=== PATIENT | female | born 1955 | race Caucasian/White ===

== ENCOUNTER 2016-12-23 15:45 | Inpatient (IN) ==
[2016-12-23] MEDS ORDERED: NS 1,000 ML IV ONE ×2 (16:33→21:58)
[2016-12-23 16:48] LABS: ALLEN TEST YES; BLOOD TYPE ARTERIAL; DRAW SITE R RADIAL; METHB 1.3 % (0.0-1.5); O2(CT) 18.9 mL/dL (15.0-23.0); PCO2(98.6) 44 mmHg (35-45); PO2(98.6) 81 mmHg (60-100); SAMPLE BLOOD; SAO2 97.8 % (95.0-100.0); THB 14.1 g/dL (11.5-17.4)
[2016-12-23 16:49] LABS: MODALITY CANNULA
[2016-12-23 16:55] LABS: MANUAL DIFF NEEDED? NO
[2016-12-23 16:59] LABS: BASO% 0.7 % (0.0-0.8); EOS% 1.2 % (0.0-10.0); HEMATOCRIT 40.7 % (37.0-47.0); HEMOGLOBIN 13.8 g/dL (12.0-16.0); IMM GRAN# 0.05 X1000 (0.0-0.04); IMM GRAN% 0.6 % (0.0-0.5); LYMPH# 1.71 X1000 (1.2-3.4); LYMPH% 19.9 % (20.5-51.1); MCH 30.5 PG (27-31); MCHC 33.9 g/dL (33-37); MCV 89.8 FL (81-99); MONO# 0.61 X1000 (0.11-0.59); MONO% 7.1 % (1.7-9.3); MPV 9.7 FL (7.4-10.4); NEUT% 70.5 % (42.2-75.2); PLT 256 X1000 (130-400); RBC 4.53 XMIL (4.2-5.4)
[2016-12-23 17:07] LABS: INR 0.98; PROTIME 10.3 Seconds (9.2-11.7); PTT 27.3 Seconds (22.0-36.0)
--- NOTE | 2016-12-23 17:07 | Diag Imaging Result Doc PS360 ---
EXAM: HEAD W/O CONTRAST HISTORY: AMS TECHNIQUE: CT of the head without contrast COMMENT: There is no evidence of mass effect bleed or abnormal extra-axial fluid collection. Compared to 02/01/2015 there has been no significant change. The visualized paranasal sinuses are clear. The calvarium is intact. IMPRESSION: No evidence of acute intracranial disease. Electronically signed by Jimmie Robles 12/23/2016 5:04 PM
[2016-12-23 17:19] LABS: ACETAMINOPHEN < 1.2 ug/mL (10-30); AGAP 11; ALBUMIN 4.2 g/dL (3.5-5.0); ALKALINE PHOSPHATASE 66 U/L (32-104); BUN 17 mg/dL (8-22); CALCIUM 9.3 mg/dL (8.8-10.2); CHLORIDE 95 mmol/L (98-107); COSMO 268; GOT 37 U/L (10-30); GPT 31 U/L (10-36); POTASSIUM 4.5 mmol/L (3.5-5.1); SODIUM 133 mmol/L (136-145); TCO2 27 mmol/L (25-35); TOTAL BILIRUBIN 0.37 mg/dL (0.20-1.00); TOTAL PROTEIN 7.7 g/dL (6.3-8.3)
[2016-12-23 17:31] LABS: CK PROFILE 185 U/L (24-173)
[2016-12-23] MEDS ORDERED: VANCOMYCIN 1 GM/NS 1 GM/250 ML IVPB IV ONE (17:33)
[2016-12-23 17:35] LABS: URINE CULTURE NEEDED? NO; URINE MICRO REVIEW NEEDED? NO; URINE SOURCE CATH
--- NOTE | 2016-12-23 17:36 | Diag Imaging Result Doc PS360 ---
EXAM: WRIST COMPLETE LEFT HISTORY: Fall TECHNIQUE: Three views COMMENT: There are comminuted fractures of the distal radius and ulna. The distal radial fragments are considerably displaced posteriorly. The articular surface of the radius is apparently fragmented. IMPRESSION: Severely comminuted distal radius and ulnar fractures. Electronically signed by Jimmie Robles 12/23/2016 5:34 PM
--- NOTE | 2016-12-23 17:37 | Diag Imaging Result Doc PS360 ---
EXAM: CHEST-PORTABLE HISTORY: AMS TECHNIQUE: AP portable upright at 1705 COMMENT: There is cardiomegaly and increased pulmonary vascularity. Compared to 12/17/2016 there has been no significant change. IMPRESSION: Cardiomegaly. Stable chest. Electronically signed by Jimmie Robles 12/23/2016 5:35 PM
[2016-12-23 17:41] LABS: BILIRUBIN URINE NEGATIVE (NEGATIVE); BLOOD URINE NEGATIVE (NEGATIVE); COLOR YELLOW; GLUCOSE URINE NEGATIVE (NEGATIVE); LEUKOCYTES URINE NEGATIVE (NEGATIVE); NITRITE URINE NEGATIVE (NEGATIVE); PROTEIN URINE NEGATIVE (NEGATIVE); SP GRAVITY URINE 1.019; TURBIDITY URINE CLEAR (CLEAR); UROBILINOGEN URINE NORMAL (NORMAL)
[2016-12-23 17:43] LABS: UR EPITHELIAL CELLS <10 /HPF (<10); URINE BACTERIA NEGATIVE /HPF; URINE RBC <10 /HPF (<10); URINE WBC <10 /HPF (<10)
[2016-12-23 17:51] LABS: CK INDEX 3.8 (0.0-2.5); CK-MB 6.97 ng/mL (0.0-5.0)
[2016-12-23 17:51] LABS: UR AMPHETAMINES QUAL NONE DETECTED (NONE DETECT); UR BARBITUATES QUAL NONE DETECTED (NONE DETECT); UR BENZODIAZEPIN QUAL PRESUMPTIVE POSITIVE (NONE DETECT); UR CANNABINOIDS QUAL NONE DETECTED (NONE DETECT); UR COCAINE QUAL NONE DETECTED (NONE DETECT); UR METHADONE QUAL NONE DETECTED (NONE DETECT); UR OPIATES QUAL NONE DETECTED (NONE DETECT); UR OXYCODONE QUAL NONE DETECTED (NONE DETECT); UR PCP QUAL NONE DETECTED (NONE DETECT)
--- NOTE | 2016-12-23 18:08 | PROVIDER DOCUMENTATION ---
This chart was entered by Hiral Manley Scribe, acting as scribe for Lamar Warner MD. HPI-General Adult - General Chief Complaint: Extremity Injury Stated Complaint: AMS/open wrist fx Time Seen by Provider: 12/23/16 16:16 Source: patient, EMS ([facility]) Unable to obtain history due to:: altered Allergies/Adverse Reactions: Patient Allergies Allergy/AdvReac Type Severity Reaction Status Date / Time amoxicillin Allergy Severe ANAPHYLAXIS Verified 12/23/16 16:57 Penicillins Allergy Severe ANAPHYLAXIS Verified 12/23/16 16:57 cephalexin Allergy Unknown Verified 12/23/16 16:57 Home Medications: Home Medication List Medication Instructions Recorded Confirmed Last Taken Type Alprazolam 0.5 mg PO TID 02/01/15 12/23/16 12/17/16 08:00 History ATORVAstatin [Lipitor] 20 mg PO HS 09/05/16 12/23/16 12/16/16 History Losartan Potassium 100 mg PO DAILY 09/05/16 12/23/16 12/17/16 08:00 History Topiramate 25 mg PO BID 09/05/16 12/23/16 12/17/16 08:00 History Albuterol Sulfate [Proventil Hfa] 1 dose PO DAILY 12/23/16 12/23/16 Unknown History Beclomethasone Dipr 40 Mcg INH 1 dose PO BID 12/23/16 12/23/16 Unknown History [Qvar 40 Microgm] Cholecalciferol (Vitamin D3) 5,000 unit PO DAILY 12/23/16 12/23/16 Unknown History [Cholecalciferol] Clonidine [Catapres] 0.1 mg PO Q2-3H PRN PRN 12/23/16 12/23/16 Unknown History Folic Acid 1 mg PO DAILY 12/23/16 12/23/16 Unknown History Levetiracetam 1 tab PO BID 12/23/16 12/23/16 Unknown History Multivitamin,Therapeutic [Oncovite] 1 tab PO DAILY 12/23/16 12/23/16 Unknown History Nicotine Patch [Nicoderm Patch] 1 patch TD DAILY 12/23/16 12/23/16 12/23/16 08: 00 History Prednisone 10 mg PO DAILY 12/23/16 12/23/16 Unknown History Sertraline [Zoloft] 100 mg PO HS 12/23/16 12/23/16 Unknown History Thiamine [Vitamin B-1] 1 tab PO DAILY 12/23/16 12/23/16 Unknown History - History of Present Illness -Gen Adult Nature of Presenting Problems: 61 y/o F presents to ED per EMS. EMS reports pt was discharged from on Monday because of AMS. On exam pt seems to be AMS and unable to answer questions appropriate. When pt is asked a question she states "No" . Pt did say she fell in the bathroom. EMS reports pt saying she cut her wrist with a knife. L wrist has apparent swelling, deformity and bruising. L wrist has a good pulse. Wrist is bleeding due to poss open fx of the L wrist. Pt was asked if she wants to harm herself she stated "yes" . Pt was asked if she took extra Xanax and she stated "yes". Pt was also asked if she wanted any pain medication due to wrist she states"no". Pt has a blank stare but will look at you and is slow to respond.Pt appears to have no emotions on exam. Pt is alert and oriented to place. Location of Pain/Injury: reports: other (pt states she has "no" pain.) Pain Radiation: reports: no radiation Quality of Pain: reports: none Severity: reports: moderate Onset/Duration: reports: unsure Timing: reports: still present Context/Activities at Onset: reports: light activity Modifying Factors: improves with: nothing Associated Symptoms: reports: other (AMS/ POSS L WRIST OPEN FX). denies: chest pain, fever/chills, shortness of breath Similar Symptoms Previously?: Yes (SEEN AT ) Recently seen or treated by another doctor?: Yes (SEEN AT ) Review of Systems - Adult - REVIEW OF SYSTEMS - ADULT ROS:: limited per condition Constitutional: denies: chills, fever Cardiovascular: denies: chest pain, palpitations Respiratory: denies: cough, shortness of breath Gastrointestinal: denies: abdominal pain, diarrhea, nausea, vomiting Musculoskeletal: reports: other (POSS L WRIST OPEN FX). denies: back pain Past History - Adult - PAST MEDICAL HISTORY-ADULT Review of Records: reports: Old Records Reviewed, Nursing Assessment Review Major Childhood Illnesses: reports: denies history Cardiovascular: reports: HTN Respiratory: reports: COPD Gastrointestinal: reports: denies history Obstetrical/Gynecological: reports: denies history Genitourinary: reports: denies history Musculoskeletal: reports: denies history Neurological: reports: Seizures/Epilepsy Endocrine/Immune: reports: denies history Other Conditions: reports: denies history - PRIOR SURGERIES/PROCEDURES Surgical/Procedure History: reports: reviewed, not pertinent - IMMUNIZATION STATUS Childhood Immunizations: See Nurse Assessment Flu Vaccine: See Nurse Assessment - FAMILY HISTORY Family History: reviewed, not pertinent - SOCIAL HISTORY Smoking: less than 1 pack/day Provider spent 3-5 mins advising pt. on dangers of tobacco.: Discussed manners to quit use, and f/u contacts for add'l counseling. Substance Use: alcohol Alcohol Use Frequency: occasionally Physical Exam-General - PHYSICAL EXAM-ADULT Initial Vital Signs Reviewed: Yes - CONSTITUTIONAL General Appearance: obese, slow to respond (UNDER INFLUENCE) - EYES Eyes: pink conjunctivae - HEAD, EARS, NOSE, MOUTH & THROAT HENMT: moist mucous membranes, normal ENT inspection - NECK Neck: non-tender, full range of motion - RESPIRATORY Respiratory: chest non-tender, lungs clear, normal breath sounds - CARDIOVASCULAR Cardiovascular: normal peripheral pulses, regular rate, rhythm, no edema - GASTROINTESTINAL (ABDOMEN) Abdominal Exam: normal bowel sounds, non tender, soft - LYMPHATIC Lymphatic: no adenopathy - MUSCULOSKELETAL Back Exam: normal inspection, no CVA tenderness, no vertebral tenderness Extremity: normal range of motion, non-tender, other (POSS L WRIST OPEN FX. PT HAS BRUISING/DEFROMITY TO L WRIST. PT DOES HAVE GOOD PULSE IN L WRIST.) - SKIN Integumentary: normal color, normal turgor, blanching (to L wrist) - NEUROLOGIC Neurologic: other (pt is slow to respond- poss under influence). negative: facial droop, focal weakness, motor weakness - PSYCHIATRIC Psych/Mental Status: other (oriented to name and place) Progress - PLAN OF CARE/RESULTS Progress/Plan/Lab Results: Vital Signs - 8 hr 12/23/16 15:58 Temperature 97.6 F Pulse Rate 60 Respiratory Rate 21 Blood Pressure 173/83 O2 Sat by Pulse Oximetry 97 Orders Category Date Time Status Cardiac Monitoring DIRECTED Care 12/23/16 16:31 Active Finger Stick Blood Sugar (ED) DIRECTED Care 12/23/16 16:31 Active Saline Loc NOW Care 12/23/16 16:31 Active CHEST-PORTABLE [RAD] Stat Exams 12/23/16 16:31 Ordered HEAD W/O CONTRAST [CT] Stat Exams 12/23/16 16:31 Ordered WRIST COMPLETE LEFT [RAD] Stat Exams 12/23/16 16:31 Ordered ABG [RESP] Routine Lab 12/23/16 16:31 Ordered ALCOHOL BLOOD Stat Lab 12/23/16 16:31 Uncollected CBC WITH ELECTRONIC DIFF [HEME] Stat Lab 12/23/16 16:31 Uncollected CK PROFILE [SP CHEM] Stat Lab 12/23/16 16:31 Uncollected COMPREHENSIVE METABOLIC PANEL [CHEM] Stat Lab 12/23/16 16:31 Uncollected LACTATE, PLASMA [CHEM] Stat Lab 12/23/16 16:31 Uncollected PROTIME WITH INR [COAG] Stat Lab 12/23/16 16:31 Uncollected PTT [COAG] Stat Lab 12/23/16 16:31 Uncollected TROPONIN T Stat Lab 12/23/16 16:31 Uncollected URINALYSIS W/POSS RFLX CULT-1 [URINALYSIS] Stat Lab 12/23/16 16:31 Uncollected URINE DRUG SCREEN Stat Lab 12/23/16 16:31 Uncollected Pulse Oximetry Stat Oth 12/23/16 16:31 Active EKG [EKG] Stat Ther 12/23/16 16:31 Ordered PLAN: ALTERED MENTAL STATUS WORK UP , XRAY OF L WRIST, MONITOR PT, URINE Result Diagrams: 12/23/16 16:40 12/23/16 16:40 - XRAY 1 XRAY: Left XRAY Study: Wrist Impression: Abnormal XRAY Interpretation: displaced fx- Dr. Warner(er) 2 XRAY: Bilateral XRAY Study: Chest Impression: Normal (cardiomegaly. stable chest. - Dr. Robles(radiologists)) - CT/MRI 1 CT Study: Head Impression: Normal (no evdence of acute intracranial disease- Dr. Robles( radiologist)) CT Results: see impression - CONSULTS/PCP/HOSPITALIST Notification #1 *Consult/PCP/Hospitalist*: (ortho) Time Discussed: 17:42 Consult Disposition: other (Pt will be admitted to hospitalist and he will consult. Splint will be applied by ED staff) - CHANGE OF SHIFT REPORT (ED Provider) Report Given and Care Transferred to:: Time of Transfer: 18:00 Items Pending: Physician Consult/Arrival Departure - Departure Time of Disposition Decision: 17:45 DIAGNOSIS: Altered mental status, unspecified, Radial fracture, Overdose Disposition: ADMITTED INPATIENT 09 Certified Medical Emergency: Emergent Condition: Stable Referrals and Follow-Ups: None,PCP [Primary Care Provider] - - Critical Care Note This patient required my direct & personal management of CC.: No This chart was documented by the indicated scribe, (Hiral Manley Scribe) and accurately reflects the services I performed and decisions made by me, Lamar Warner MD, as attested by the provider's signature.
[2016-12-23 19:04] LABS: CK INDEX 3.7 (0.0-2.5); CK-MB 7.21 ng/mL (0.0-5.0)
[2016-12-23] MEDS ORDERED: TYLENOL PO PRN (21:58)
[2016-12-23] MEDS ORDERED: ZOFRAN IV PRN (21:58)
[2016-12-23] MEDS ORDERED: HALDOL IV PRN (22:13)
[2016-12-23] MEDS: KEPPRA PO SCH (22:32)
[2016-12-23] MEDS: TOPAMAX PO SCH (22:32)
[2016-12-23] MEDS: ZOLOFT PO SCH (22:32)
[2016-12-23] MEDS: NICODERM PATCH TD SCH (22:32)
[2016-12-23] MEDS: PROTONIX IV SCH (22:32)
[2016-12-23] MEDS: LIPITOR PO SCH (22:32)
[2016-12-23] MEDS: SODIUM CHLORIDE 0.9% INJ SCH (22:32)
--- NOTE | 2016-12-23 22:40 | HISTORY AND PHYSICAL ---
CHIEF COMPLAINT: fall HPI: This is 61 yo white female who came from home with altered mentation and injury to forearm. Reportedly there is per ER documentation suicide attempts but I talked to the nurse taking care of her this evening and that is not confirmed and the patient is really unable to give any information. Her sister I think found the patient. She had fallen after getting up off the commode. All she can state is "no" and that is basically what she has been able to say. She reportedly told her sister "knife" repeatedly. EMS reports patient saying she cut her wrist with a knife. She had swelling deformity and bruising and she has fracture of her of her wrist which is reportedly open and which has since been splinted. She was asked if she hurt herself. She denied this to me but she stated yes to other providers, reportedly also took extra Xanax. She was recently in [facility] discharged on Monday which was 2 days ago for a altered mental status similar kind of issue and had a neurological workup which was unremarkable. Her baseline is a flat affect, currently is a flat affect and she just repeats no so I cannot get much out of her. Difficult to say if she truly had suicide attempts but she is being admitted for her encephalopathy and then her open radial/ulnar fracture. PAST MEDICAL HISTORY: 1. hypertension. 2. Seizure disorder. 3. Possibly asthma, COPD. 4. Dyslipidemia. 5. Anxiety disorder. PAST SURGICAL HISTORY: I really cannot get much information from her. FAMILY HISTORY: Unobtainable. SOCIAL HISTORY: Is unobtainable. ALLERGIES: Amoxicillin, penicillin and Keflex. PER MEDICAL RECORDS PAST MEDICAL HISTORY: She has had a mitral valve prolapse , chronic venous stasis. SOCIAL HISTORY: She does have a smoking history, unclear what the duration of time is. MEDICATION LIST: She is on Proventil daily, Xanax 0.5 t.i.d., Lipitor 20 daily , beclomethasone b.i.d., vitamin D3 5000 units daily, Catapres 0.2 p.r.n., folic acid 1 daily, Keppra 500 b.i.d., Losartan 100 daily, multivitamin daily, NicoDerm daily, prednisone 10 daily, Zoloft 100 daily, thiamine 100 daily, topiramate 25 b.i.d. REVIEW OF SYSTEMS: Really unobtainable except as outlined in the HPI. PHYSICAL EXAMINATION: VITAL SIGNS: Blood pressure 187/86, heart rate is 68, respiratory 18, 97% room air saturations, temperature 97.6 degrees. GENERAL: Well-developed female, no acute distress. HEENT: Head normocephalic, atraumatic. Pupils were equal, round, reactive to light. Extraocular movements were intact. Ear/nose/throat. She had moist mucous membranes. NECK: Supple. CARDIOVASCULAR: Regular rate and rhythm. No murmurs, gallops, or rubs. PULMONARY: Bilateral breath sounds. Clear to auscultation. No wheezing. GI: Soft, nontender, nondistended. Bowel sounds are positive. EXTREMITIES: No clubbing or cyanosis. left forearm in splint LYMPHATICS: No peripheral edema. SKIN: She did have dark brown chronic venous changes in her lower extremities. Her left forearm was in a cast. NEUROLOGICAL: Nonfocal. She was not alert, oriented to anything. She just answered no pretty much to every question but she would track. She did not have a focal neurological exam. No facial asymmetry. No pronator drift although her left arm was weakened by her fracture. ASSESSMENT AND PLAN: A 61-year-old female with a waxing and waning encephalopathy not quite well characterized who presents confused, questionable suicidal ideation and open fracture of her left radius and ulna 1. Encephalopathy likely multifactorial. I cannot find a clear etiology. Her sodium is a little low but I do not feel like that is enough to hang her diagnosis on. I think this is likely a primary psychiatric issue. We will attempt to get a neurological consult although it is the weekend and MRI if she is not improved to rule out CVA. I am going to try to get her old records from [place]. We will get Felicity Gutierrez to evaluate her , consider that if she improves right now she is not stable with a fracture to go there in any case, we will pursue metabolic workup with thyroid function test, sedimentation rate, B12 , folate, RPR. 2. Open comminuted radial/ulnar fracture. This will be per Orthopedics. It is in a splint at this time. Will continue pain control and follow closely. 3. Chronic obstructive pulmonary disease. This appears to be compensated. Will continue her regular treatments and follow. 4. Mild hyponatremia. We will give normal saline. Check urine electrolytes and follow. 5. Hypertension. Continue regular medications and monitor. Will give clonidine p.r.n. DISPOSITION: Pending her workup and clinical course we will observe in the ICU because there is some question of suicidal ideation but at this point that has not been confirmed to confirmed by any provider in this facility it just been reported to EMT and not even confirmed by family per se so we will deal that will hopefully when her mentation improves. . cc: Manish Arias MD MTDD
[2016-12-24] MEDS ORDERED: ATIVAN IV PRN (02:51)
[2016-12-24 05:07] LABS: HEMATOCRIT 38.9 % (37.0-47.0); HEMOGLOBIN 13.3 g/dL (12.0-16.0); MCH 30.4 PG (27-31); MCHC 34.2 g/dL (33-37); MPV 10.1 FL (7.4-10.4); RBC 4.37 XMIL (4.2-5.4)
[2016-12-24 05:17] LABS: AGAP 13; ALBUMIN 3.8 g/dL (3.5-5.0); ALKALINE PHOSPHATASE 62 U/L (32-104); BUN 11 mg/dL (8-22); CALCIUM 8.3 mg/dL (8.8-10.2); CHLORIDE 97 mmol/L (98-107); COSMO 266; GOT 32 U/L (10-30); GPT 29 U/L (10-36); POTASSIUM 4.2 mmol/L (3.5-5.1); SODIUM 133 mmol/L (136-145); TCO2 23 mmol/L (25-35); TOTAL BILIRUBIN 0.65 mg/dL (0.20-1.00); TOTAL PROTEIN 6.2 g/dL (6.3-8.3)
[2016-12-24] MEDS: QVAR INH SCH ×2 (08:15→19:22)
[2016-12-24] MEDS: VITAMIN D PO SCH (08:16)
[2016-12-24] MEDS: OCUVITE LUTEIN & ZEAXANTHIN PO SCH (08:16)
[2016-12-24] MEDS: MORPHINE IV PRN ×2 (08:16→21:11)
[2016-12-24] MEDS: VENTOLIN HFA INH SCH (08:16)
[2016-12-24] MEDS: NICODERM PATCH TD SCH (08:16)
[2016-12-24] MEDS: COZAAR PO SCH (08:17)
[2016-12-24] MEDS: KEPPRA PO SCH ×2 (08:17→20:13)
[2016-12-24] MEDS: TOPAMAX PO SCH ×2 (08:17→20:13)
[2016-12-24] MEDS: XANAX PO SCH ×3 (08:17→20:13)
[2016-12-24] MEDS: VITAMIN B-1 PO SCH (08:17)
[2016-12-24] MEDS: FOLIC ACID PO SCH (08:17)
[2016-12-24] MEDS: NS 1,000 ML IV SCH (10:08)
--- NOTE | 2016-12-24 13:12 | PROGRESS NOTE ---
DATE: 12/24/2016 I understand Ms. Moffett got admitted yesterday because of altered mental status. From the H and P I go that Ms. Moffett was completely out, that it was only yes or no type of communication. The admitting physician could not get much from her. I also gather that the daughter brought her in because she was found at home with what seems to have been suspected fall with broken right forearm. Today she is a little bit more alert, slightly more communicative than what I gather from the HPI. OBJECTIVE: Vital signs: Blood pressure is 142/72, pulse of 68, respirations 22 , temperature 98.2 degrees. General: Ms. Moffett is a 61-year-old female. She is in bed , not seemingly distressed. HEENT: Mucosa is pink and moist. Anicteric. Acyanotic. Neck: Supple. Chest: Clear. Cardiovascular: Regular rate and rhythm. Abdomen: Soft. Extremities : No pedal edema. The left upper extremity has been immobilized. Patient is awake, alert. She is a little bit more communicative today. Psych : Patient continues to have very flat affect is kind of limited in her speech. LABORATORY DATA: WBC is 9.41, hemoglobin is 13.3, platelet count is 244,000. Chemistry is reviewed. Sodium is 133, potassium is 4.2, chloride is 97, bicarb is 23. Vitamin B12, and folate is all normal. An x-ray of wrist showed severe comminuted and distal radius and ulna fractures. A CT scan of the head, no evidence of acute intracranial disease. ASSESSMENT: 1. Altered mental status on presentation likely due to toxic metabolic encephalopathy. There is a suspicion that patient might have taken too much of her Xanax at home. Her urine toxicology was also positive for benzodiazepines however now patient's mentation seems to be progressively improving. 2. Comminuted fracture of distal radius and ulnar. Patient has been evaluated by Dr. Coon and there is a plan to intervene surgically. 3. Suspected severe depression. Patient continues to be monosyllabic, very flat affect. Shies away from interrogation. I think she is severely depressed. Will get Felicity Gutierrez to evaluate her. She has already been started on sertraline. I will add Effexor for her depression management until we get Felicity Gutierrez to see her. 4. Mild hyponatremia. I think is a combination of probably dehydration as well as some possible underlying SIADH from the SSRIs. For now will continue with adequate hydration. Get her euvolemic and then re-evaluate her tonicity. 5. Hypertension, stable. 6. History of COPD currently not in exacerbation. 7. Right bundle branch block on EKG. This is not new. 8. Suspected suicidal attempt. According to the patient she tried to cut herself. She has the urge to cut herself but she does not know why. For now, we would continue suicidal precautions and await Felicity Gutierrez to evaluate her. cc: Quinton Pro MD MTDD
[2016-12-24] MEDS ORDERED: NEOSPORIN G.U. IRRIGANT ONE (13:18)
[2016-12-24] MEDS ORDERED: VANCOMYCIN 1 GM/NS 1 GM/250 ML IVPB ONE (13:31)
[2016-12-24] MEDS ORDERED: MARCAINE 0.5% PF ONE (13:54)
[2016-12-24] MEDS ORDERED: DIPRIVAN 1% ONE (15:36)
[2016-12-24] MEDS ORDERED: FENTANYL ONE (15:36)
--- NOTE | 2016-12-24 16:29 | CONSULTATION ---
DATE OF CONSULTATION: 12/24/2016 CHIEF COMPLAINT: Left wrist injury. HISTORY OF PRESENT ILLNESS: Mariia Moffett is a 61-year-old female who was found at home with an open left distal radius fracture. She was admitted to the hospital for mental status changes and her wrist fracture. PAST MEDICAL HISTORY: See admission history and physical. PAST SURGICAL HISTORY: See admission history and physical. MEDICATIONS: See admission history and physical. ALLERGIES: See admission history and physical. PHYSICAL EXAMINATION: General: Reveals a well-developed, well-nourished female. She is cooperative with examination. She appears appropriate at this time. Extremities: Her hand appears neurovascularly intact. She has intact sensation to light touch. Her hand is in a splint and I spoke with her daughter, and she reported an open wound that was bleeding at the scene of the accident. IMAGING: X-rays reveal a comminuted distal radius and ulna fracture. IMPRESSION: Left type 2 open distal radius and ulna comminuted fracture, intra-articular. PLAN: I have discussed Ms. Moffett with herself, her daughter, and Dr. Pro. We all agree to proceed with surgery. I have discussed with her the risks, benefits, and alternatives of surgery, including but not limited to bleeding, nerve damage, infection, risks from anesthesia, hardware failure, malunion, nonunion, up to and including loss of limb and life, and other imponderables. She voices her understanding as well as her daughter and they requested we proceed as planned. We will perform the surgery as soon as possible. cc: Beto Coon MD
--- NOTE | 2016-12-24 17:58 | OPERATIVE NOTE ---
PROCEDURE DATE: 12/24/2016 PREOPERATIVE DIAGNOSIS: 1. Left comminuted intraarticular distal radius fracture. 2. Left open ulna styloid fracture. PROCEDURE: 1. Irrigation and debridement of left ulnar styloid fracture. 2. Open reduction, internal fixation of left comminuted intraarticular distal radius fracture. ANESTHESIA: General. SURGEON: eBto Coon MD. CASINO FLOORPERSON: None. COMPLICATIONS: None. BLOOD LOSS: Minimal. TOURNIQUET TIME: Approximately an hour and a half. DESCRIPTION OF PROCEDURE: The patient was brought to the operative suite and placed in supine position. After successful administration of general anesthesia, a well-padded tourniquet was left proximal arm and left upper extremity was prepped and draped in usual sterile fashion. The arm was exsanguinated. Tourniquet insufflated to 250 torr. The open wound overlying ulna styloid was debrided and then the wound was copiously irrigated with normal saline containing irrigant. The wound was reapproximated with interrupted nylon suture. Attention then directed distal radius fracture. A longitudinal incision was made overlying the flexor carpi radialis tendon. This was dissected sharply through the skin and then down to the tendon then through the deep fascia beneath the tendon and then bluntly down to the pronator quadratus protecting the superficial radial nerve and the radial artery. The pronator quadratus was elevated off the radial border of the radius exposing the fracture site. She had a comminuted intraarticular distal radius fracture. This was reduced using manual reduction and finger traps and then a Synthes volar locking plate was placed with 7 buttress pins distally and 5 bicortical screws proximally, 4 of them locking. Excellent reduction of fracture was obtained on AP and lateral images. The wound was copiously irrigated. The pronator quadratus was repaired with 3-0 Vicryl. The fascia was closed with 3-0 Vicryl running, skin edge approximated with 3-0 Vicryl interrupted and the skin was closed with 4-0 nylon. The wounds were injected with Marcaine and then a sterile dressing and a well-padded volar splint was applied. The patient tolerated the procedure well without complication. At the end the procedure all counts correct x2. The patient was transferred to recovery room in stable condition. cc: Beto Coon MD
[2016-12-24] MEDS: LIPITOR PO SCH (20:13)
[2016-12-24] MEDS: ZOLOFT PO SCH (20:13)
[2016-12-24] MEDS: EFFEXOR PO SCH (20:13)
[2016-12-24] MEDS ORDERED: DESYREL PO SCH (21:00)
[2016-12-24] MEDS: SODIUM CHLORIDE 0.9% INJ SCH (21:14)
[2016-12-24] MEDS: PROTONIX IV SCH (21:14)
[2016-12-25] MEDS: NS 1,000 ML IV SCH (00:55)
[2016-12-25] MEDS: VANCOMYCIN 1 GM/NS 1 GM/250 ML IVPB IV SCH ×2 (00:55→13:04)
[2016-12-25 05:26] LABS: BASO% 0.2 % (0.0-0.8); EOS# 0.02 X1000 (0.0-0.7); EOS% 0.2 % (0.0-10.0); HEMATOCRIT 35.9 % (37.0-47.0); HEMOGLOBIN 11.9 g/dL (12.0-16.0); IMM GRAN# 0.03 X1000 (0.0-0.04); IMM GRAN% 0.3 % (0.0-0.5); LYMPH% 16.2 % (20.5-51.1); MANUAL DIFF NEEDED? NO; MCH 30.2 PG (27-31); MCHC 33.1 g/dL (33-37); MCV 91.1 FL (81-99); MONO# 1.11 X1000 (0.11-0.59); MPV 10.2 FL (7.4-10.4); NEUT% 73.1 % (42.2-75.2); PLT 231 X1000 (130-400); RBC 3.94 XMIL (4.2-5.4)
[2016-12-25 06:09] LABS: AGAP 12; BUN 10 mg/dL (8-22); CALCIUM 8.6 mg/dL (8.8-10.2); CHLORIDE 97 mmol/L (98-107); COSMO 269; MAGNESIUM 1.8 mg/dL (1.5-2.7); POTASSIUM 4.1 mmol/L (3.5-5.1); SODIUM 135 mmol/L (136-145); TCO2 26 mmol/L (25-35)
[2016-12-25] MEDS: QVAR INH SCH ×2 (07:30→19:00)
[2016-12-25] MEDS: VENTOLIN HFA INH SCH (07:30)
[2016-12-25] MEDS: VITAMIN D PO SCH (08:15)
[2016-12-25] MEDS: OCUVITE LUTEIN & ZEAXANTHIN PO SCH (08:15)
[2016-12-25] MEDS: XANAX PO SCH ×3 (08:15→17:28)
[2016-12-25] MEDS: NICODERM PATCH TD SCH (08:15)
[2016-12-25] MEDS: COZAAR PO SCH (08:15)
[2016-12-25] MEDS: KEPPRA PO SCH ×2 (08:15→20:53)
[2016-12-25] MEDS: FOLIC ACID PO SCH (08:15)
[2016-12-25] MEDS: VITAMIN B-1 PO SCH (08:15)
[2016-12-25] MEDS: TOPAMAX PO SCH ×2 (08:15→20:53)
[2016-12-25] MEDS ORDERED: SAMSCA PO ONE (09:27)
[2016-12-25] MEDS: NORCO-7.5 PO PRN (09:48)
--- NOTE | 2016-12-25 10:24 | PROGRESS NOTE ---
DATE: 12/25/2016 SUBJECTIVE: Today, Ms. Moffett refers to be doing a lot better. According to the nurses, she was a little bit confused early on today but this morning when I came, she was eating her breakfast. She knew where she was, completely oriented. OBJECTIVE: Vital Signs: Blood pressure is 153/69, pulse of 73, respirations are 25, temperature is 98.6 degrees. General Examination: Ms. Moffett is a 61-year-old, female. She is in bed. She did not seem to be in any remarkable distress. HEENT: Mucosa is pink and moist. Anicteric and acyanotic. Neck: Supple. Chest: Good air entry. There is a little bit of prolonged expiration phase of respiration. Cardiovascular: Regular rate and rhythm. Abdomen: Soft and distended. Feels like there is a fluid shift. Extremities: No pedal edema. The left upper extremity forearm is in a cast. Skin: On the upper chest, there are multiple telangiectasias. 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 Disoriented to time. The patient is able to follow commands. She is more interactive today than yesterday. She does not show any signs of suicidality. Laboratory Data: WBC is 11.09, hemoglobin is 11.9, platelet count of 223,000. Chemistry: Sodium is 135, potassium is 4.1, chloride is 97, bicarb is 26. Vitamin D is 11.7, remarkably low. ASSESSMENT: 1. Altered mental status on presentation due toxic metabolic encephalopathy. Urine toxicology is positive for benzodiazepines. There is a suspicion that patient took more of her Xanax. 2. Suspected suicidal attempt. Patient tried to cut herself. She is pending to be evaluated by Felicity Gutierrez. 3. Comminuted fracture of distal radius and ulna, status post repair yesterday by Dr. Coon. 4. Severe major depression. The patient is currently on SSRI. She is on sertraline and also Effexor. She seems to be a little bit more lively today, more communicative than yesterday. 5. Mild hyponatremia. The patient is now well hydrated so I think she does have some underlying syndrome of inappropriate antidiuretic hormone secretion, possibly from her antidepressive medications. We are going to give her a dose of Samsca to improve on her sodium levels. 6. Hypertension, stable. 7. History of chronic obstructive pulmonary disease. Currently not in exacerbation. 8. Right bundle branch block on EKG, not new. 9. Vitamin D deficiency. We will continue to replace this. 10. Abdominal distention with fluid shift, suspicious for ascites. We are going to do an ultrasound of the abdomen to follow up on that. cc: Quinton Pro MD MTDD
--- NOTE | 2016-12-25 10:55 | PROGRESS NOTE ---
DATE: 12/25/2016 SUBJECTIVE: Mariia Moffett is a 61-year-old female who is postoperative day 1 from her left wrist fracture ORIF. She has no new complaints. OBJECTIVE: She is a well-developed, well-nourished female. She is cooperative with the exam. She still has altered mental status. However, she does appear to be able to answer questions appropriately. She can flex and extend her fingers. She has brisk capillary refill and intact sensation grossly. Her splint is intact. ASSESSMENT: Stable postoperative day 1 visit from a left open distal radius and ulnar fracture. PLAN: We will continue her splint. She will need to follow up with me in 1 week for suture removal. She can be discharged to home or rehab when cleared medically. cc: Beto Coon MD
--- NOTE | 2016-12-25 11:53 | Diag Imaging Result Doc PS360 ---
EXAM: US ABDOMEN-COMPLETE HISTORY: suspected ascites TECHNIQUE: Transabdominal COMMENT: The visualized portions of the pancreas aorta and inferior vena cava are within normal limits. There is no evidence of biliary dilatation the common bile duct measuring 4 mm. There is antegrade flow in the portal vein. Detail of the liver is suboptimal due to the patient's body habitus. There are no definite abnormalities otherwise. The gallbladder is clear and nontender. The spleen is not enlarged. The kidneys are without evidence of hydronephrosis or mass. There is no evidence of ascites. IMPRESSION: No evidence of acute disease. No evidence of ascites. Electronically signed by Jimmie Robles 12/25/2016 11:51 AM
[2016-12-25] MEDS: EFFEXOR PO SCH ×2 (14:03→20:53)
[2016-12-25] MEDS: LIPITOR PO SCH (20:53)
[2016-12-25] MEDS: PROTONIX IV SCH (20:53)
[2016-12-25] MEDS: SODIUM CHLORIDE 0.9% INJ SCH (20:53)
[2016-12-25] MEDS: ZOLOFT PO SCH (20:53)
[2016-12-26 07:00] LABS: MANUAL DIFF NEEDED? NO
[2016-12-26 07:07] LABS: BASO% 0.5 % (0.0-0.8); EOS# 0.16 X1000 (0.0-0.7); EOS% 2.1 % (0.0-10.0); HEMATOCRIT 36.8 % (37.0-47.0); HEMOGLOBIN 12.1 g/dL (12.0-16.0); IMM GRAN# 0.02 X1000 (0.0-0.04); IMM GRAN% 0.3 % (0.0-0.5); LYMPH# 1.98 X1000 (1.2-3.4); LYMPH% 26.1 % (20.5-51.1); MCH 30.5 PG (27-31); MCHC 32.9 g/dL (33-37); MCV 92.7 FL (81-99); MONO# 0.72 X1000 (0.11-0.59); MONO% 9.5 % (1.7-9.3); MPV 10.1 FL (7.4-10.4); NEUT% 61.5 % (42.2-75.2); PLT 235 X1000 (130-400); RBC 3.97 XMIL (4.2-5.4)
[2016-12-26 07:17] LABS: AGAP 11; BUN 11 mg/dL (8-22); CALCIUM 8.8 mg/dL (8.8-10.2); CHLORIDE 100 mmol/L (98-107); COSMO 278; POTASSIUM 4.1 mmol/L (3.5-5.1); SODIUM 140 mmol/L (136-145); TCO2 29 mmol/L (25-35)
[2016-12-26] MEDS: VENTOLIN HFA INH SCH (08:15)
[2016-12-26] MEDS: QVAR INH SCH ×2 (08:15→18:55)
[2016-12-26] MEDS ORDERED: XYLOCAINE-MPF 2% ONE (09:10)
[2016-12-26] MEDS ORDERED: DECADRON ONE (09:10)
[2016-12-26] MEDS ORDERED: ZOFRAN ONE (09:10)
[2016-12-26] MEDS ORDERED: LR 1,000 ML ONE (09:10)
[2016-12-26] MEDS ORDERED: EPHEDRINE ONE (09:10)
[2016-12-26] MEDS: VITAMIN D PO SCH (10:09)
[2016-12-26] MEDS: TOPAMAX PO SCH ×3 (10:09→20:06)
[2016-12-26] MEDS: EFFEXOR PO SCH ×3 (10:09→20:05)
[2016-12-26] MEDS: XANAX PO SCH ×4 (10:09→20:05)
[2016-12-26] MEDS: NICODERM PATCH TD SCH (10:09)
[2016-12-26] MEDS: VITAMIN B-1 PO SCH (10:09)
[2016-12-26] MEDS: KEPPRA PO SCH ×3 (10:09→20:06)
[2016-12-26] MEDS: FOLIC ACID PO SCH (10:09)
[2016-12-26] MEDS: COZAAR PO SCH (10:09)
[2016-12-26] MEDS: OCUVITE LUTEIN & ZEAXANTHIN PO SCH (10:13)
--- NOTE | 2016-12-26 11:18 | PROGRESS NOTE ---
DATE: 12/26/2016 SUBJECTIVE: Today, Ms. Moffett refers to be doing fine. There is a sister at the bedside who gave a little bit of more history about Ms. Moffett's issues. According to her, Ms. Moffett has been battling with on and off some cognitive decline for the past couple of weeks. She has also been severely depressed since her about a year ago. She was on Xanax for over 25 years and just out of the blue, her PCP told her he cannot prescribe Xanax anymore. Apparently, put her on Ativan. This was about a month ago. Since then, she has just not been functioning right. The patient was admitted to [facility] about 2 weeks ago because she was not responding, only staring at people for about 10 minutes, and got back to normal. They interpreted that as some form of seizures so at the [facility], the patient was transferred to [place] where she was there for about 5 days and got discharged last Monday. My understanding is that patient underwent extensive workup in [place] including an MRI which was negative. At home, patient was doing fine for 3 days and then progressively was declining in cognition, getting slower until the weekend that she apparently fell at home and broke her left wrist, and was brought in to the emergency department. OBJECTIVE: Vital Signs: Blood pressure is 132/62. Pulse is 70, respirations are 16, temperature is 99.3 degrees. General Examination: Ms. Moffett is a 61-year-old, female. She was in bed. Does not seem to be in any distress. HEENT: Mucosa is pink and moist. Anicteric and acyanotic. Neck: Supple. Chest: Good air entry bilaterally. No crepitations. No rhonchi. Cardiovascular: Regular rate and rhythm. Abdomen: Soft, is distended. Bowel sounds are slightly hypoactive. Extremities: No pedal edema. 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 Does not have any signs or symptoms of suicidality. Laboratory Data: WBC 7.6, hemoglobin is 12.1, platelet count of 235,000. Chemistry: Sodium is 140, potassium is 4, chloride is 100, bicarb is 23. Renal functions are normal. Vitamin D is 11.7. ASSESSMENT: 1. Altered mental status on presentation. Presumed to be toxic metabolic encephalopathy which we presume is due to either Xanax overdose or maybe withdrawal. 2. Cognitive decline. We understand the patient has been having some issues with memory deficit, some cognitive decline for the past 1 month since her Xanax has been changed. 3. Comminuted fracture of distal radius and ulna, status post repair. Today is day 2 postoperative. 4. Depression. According to the sister, patient has been severely depressed since the about a year ago. She was on sertraline. We added Effexor. She seems to be a little bit better today. 5. Hyponatremia, improved. 6. Hypertension, controlled. 7. Vitamin D deficiency. We will continue to replace this. 8. Abdominal distention, likely due to constipation. We will address this more symptomatically. PLAN: In general, I think Ms. Moffett is relatively stable. We discussed extensively the concerns of the family today with them and they would prefer if Ms. Moffett goes to a rehab whereby she will be monitored more closely and helped with her physical buddhism as well as her cognitive and occupational buddhism. Ms. Diggs, the rifle case repairer, was also in the room during the conversation. They will pick that up. Therefore, will be pending on the social work administrator arrangements for rehab placement. We have also requested the MRI report from [place]. Of note, a CT scan that was done on the of this month did not show any evidence of acute intracranial pathology. We will do a TSH and a free T4 to make sure she does not have any underlying hypothyroidism. If arrangement is made for the rehab today, we will be able to discharge her. If not, whenever the arrangement is completed. cc: MD YUMIKO Blankenship
[2016-12-26 11:58] LABS: FREE T4 2.16 ng/dL (0.93-1.70)
[2016-12-26] MEDS: ZOLOFT PO SCH ×2 (19:49→20:05)
[2016-12-26] MEDS: LIPITOR PO SCH ×2 (19:50→20:06)
[2016-12-26] MEDS: SODIUM CHLORIDE 0.9% INJ SCH (19:50)
[2016-12-26] MEDS: PROTONIX IV SCH ×2 (19:50→20:05)
[2016-12-26] MEDS: NORCO-7.5 PO PRN (21:17)
--- NOTE | 2016-12-27 00:10 | CONSULTATION ---
DATE OF CONSULTATION: 12/26/2016 REQUESTING PHYSICIAN: Dr. Quinton Pro. REASON FOR EVALUATION: Evaluation of altered mental status. The patient is a 61-year-old right- handed female with a history of depression and reportedly past suicide attempts, although this is unclear to me, as well as reported seizures, who was admitted on 12/23 with altered mental status and an open left wrist fracture. The patient is alone, and the history is from chart review and the amount that the patient can give me. She states that she does not recall what happened. She has no memory of the event. She does not remember coming to the hospital. Per the chart, her sister found her after the patient called and said something to the effect of she is hurt and bleeding, and something about a knife. She found her in the bathroom on the floor, and she had an open wrist fracture. The patient does not recall any of this. She was apparently discharged last week from [facility] with altered mental status, and per the chart, a neurological workup was unremarkable. Per the patient, she was told she had a seizure, but her seizure medications were not altered. She apparently had an MRI there that they report did not show anything, although I do not see a copy of this in our chart here. The patient tells me that she takes Topamax 25 mg b.i.d., as well as Keppra 500 mg b.i.d. at home. The Keppra was most recently added to the Topamax. She does not report any side effects from the Keppra. PAST MEDICAL HISTORY: Hypertension, seizures, possible asthma, COPD, dyslipidemia, depression and anxiety, and possibly past suicide attempts, although the patient denies this. Apparent mitral valve prolapse and chronic venous stasis. PAST SURGICAL HISTORY: She is status post wrist surgery this admission. FAMILY HISTORY: No history of seizures. ALLERGIES: Amoxicillin, penicillin, and Keflex. SOCIAL HISTORY: She smokes. MEDICATIONS: Reviewed, in the chart. She is on Xanax 0.5 p.o. t.i.d., Keppra 500 p.o. b.i.d., Topamax 25 mg p.o. b.i.d., also Effexor and Zoloft. Otherwise, noted in the chart. PHYSICAL EXAMINATION: Vital Signs: Reviewed. General: She is lying in bed. She has a cast on her left forearm. She is alert and attentive and appropriate. Able to answer questions appropriately. Able to follow commands. Neck: Supple. No carotid bruit. Cardiovascular: Regular rate and rhythm. No murmurs appreciated. Lungs: Clear anteriorly. Abdomen: Soft, nontender, nondistended. Extremities: She has a left forearm casted. Psychiatry: Her affect is flat. Neurological: Mental status: She is awake, alert, and oriented. Her attention and concentration are intact. Language is intact. No dysarthria. Follows commands. Cranial nerves: Pupils are equal, round, reactive to light. Extraocular movements are intact. No nystagmus. Visual chapin are full to confrontational testing. Facial sensation is intact. Face is symmetrical, with equal activation. Hearing grossly intact. Palate elevates symmetrically. Tongue protrudes midline. Full shoulder shrug bilaterally. Motor exam: Normal bulk and tone. No pronator drift of the right arm. Her strength is intact and symmetric, with the exception of exclusion of testing of the left arm due to the casting and discomfort. Reflexes are symmetric throughout. No clonus. Sensory exam is intact to light touch and temperature throughout. Coordination is intact with the feet and right upper extremity. Unable to test left upper extremity. Gait is not tested. PERTINENT DIAGNOSTICS: Labs are reviewed. White count 7.6, hemoglobin 12, hematocrit 37, platelets are 235. Sodium on admission 133, currently 140. Potassium normal. BUN 11, creatinine 0.6. AST 32, ALT 29, alkaline phosphatase 62, ammonia 36. ESR was 45. Her toxicology screen was positive for benzodiazepines. ASSESSMENT AND PLAN: A 61-year-old right-handed female, history of depression, possibly past suicide attempts, a history of seizures, admitted with altered mental status and open left wrist fracture, status post surgical correction. Her mental status has improved since her admission, and today she is pretty alert and attentive. She does not recall what happened. There was some concern per the chart that she may have taken more of her benzodiazepine home dose than is directed. In a patient with seizures, it is possible that she may have had an unwitnessed seizure at home, fallen, and broken her wrist. There is really no way to know this for sure. Recommend a routine EEG to further evaluate. She reports that an EEG at some point before showed some abnormality that was consistent with a seizure disorder. I would continue her seizure medications as is until we get the EEG back. Doubtful the very low dose of Topamax is doing much. There is concern if the patient has depression and suicide attempts that Keppra may not be the best medication for her, though she denies any side effects from it. Thank you for this consult. Will follow. cc: Rupali Dodge MD
[2016-12-27] MEDS: QVAR INH SCH ×2 (07:36→19:53)
[2016-12-27] MEDS: VENTOLIN HFA INH SCH (07:37)
--- NOTE | 2016-12-27 08:04 | PROGRESS NOTE ---
DATE: 12/27/2016 SUBJECTIVE: Mariia Moffett is a 61-year-old female who is postoperative day 3 from open reduction and internal fixation of her left open distal radius and ulnar fracture. She has no complaints. She can flex and extend her fingers. She has brisk capillary refill and intact sensation. OBJECTIVE: She is a well-developed, well-nourished female. She is alert, oriented, and cooperative exam. She can flex and extend her fingers she has brisk capillary refill. Intact sensation. There is no sign of infection. Her splint is intact. IMPRESSION: Stable postop day 3 visit from a left wrist open reduction internal fixation. PLAN: She can be transferred to home or rehab at the discretion of her admitting physician. As far as her risks are concern, we going to leave the splint on until next week. I would like to see her in the office next week. I have made an appointment in the chart. I will be available as needed. cc: Beto Coon MD
[2016-12-27] MEDS: EFFEXOR PO SCH ×2 (09:01→20:23)
[2016-12-27] MEDS: VITAMIN B-1 PO SCH (09:01)
[2016-12-27] MEDS: KEPPRA PO SCH ×2 (09:01→20:22)
[2016-12-27] MEDS: VITAMIN D PO SCH (09:01)
[2016-12-27] MEDS: FOLIC ACID PO SCH (09:02)
[2016-12-27] MEDS: OCUVITE LUTEIN & ZEAXANTHIN PO SCH (09:02)
[2016-12-27] MEDS: XANAX PO SCH ×3 (09:02→20:23)
[2016-12-27] MEDS: TOPAMAX PO SCH ×2 (09:02→20:23)
[2016-12-27] MEDS: NICODERM PATCH TD SCH (09:02)
[2016-12-27] MEDS: COZAAR PO SCH (09:03)
--- NOTE | 2016-12-27 12:52 | PROGRESS NOTE ---
DATE: 12/27/2016 Today Ms. Moffett refers to be doing a lot better. Denies any major complaint. No chest pain. No shortness of breath. No ideas of suicidality or homicidal ideation. OBJECTIVE: Vital signs: Blood pressure is 109/79, pulse of 63, respiration is 12, temperature is 98.7 degrees. General: Ms. Moffett is a 61-year-old, female. She was in bed and does not seem to be in any distress. HEENT: Mucosa is pink and moist. Anicteric. Acyanotic. Neck: Supple. Chest: Clear. Cardiovascular: Regular rate and rhythm. Did not hear any murmurs. Abdomen: Soft, nontender. Extremities: No pedal edema. 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 She is oriented. Psychiatric: Patient is more communicative and interactive. Has very good eye contact and denies any suicidal or homicidal ideation. Musculoskeletal: Patient has a cast on the left arm. LABORATORY DATA: None for today. ASSESSMENT: 1. Altered mental status on presentation. Presumed to be toxic metabolic encephalopathy due to Xanax overdose or withdrawal. The patient has improved significantly. Mentation has improved. 2. Cognitive decline. Possibly there is underlying Cezar's versus long-standing memory defects from benzodiazepine use. 3. Comminuted fracture of distal radius and ulnar status post repair. Today is day 3 postop. 4. Depression. The patient by her own account has been depressed since her over a year now. Normally follows up with a counselor on a weekly basis. She does not remember the name of the counselor but according to her, she follows up on a weekly basis. The patient is currently on an SSRI and SNRI and seems to be doing better. 5. Hyponatremia improved. 6. Hypertension controlled. 7. Vitamin D deficiency. We will continue to replace. 8. Abdominal distention due to constipation is improved. So general Ms. Moffett is doing a lot better. She is participating with physical therapy. We are pending her evaluation by the rehab center for her to be transferred to the rehab. If there is acceptance today, we will do, if not then tomorrow. cc: Quinton Pro MD
--- NOTE | 2016-12-27 13:42 | PROGRESS NOTE ---
DATE: 12/27/2016 Dr. Dodge saw Ms. Moffett for Neurology consultation yesterday. This morning, she is awake, alert, attentive. She seems more appropriate than described previously. She is better oriented. She told me today that she has regained some memory and that she remembers that she fell in the bathroom and injured her arm. She does not know why she fell. She reports she is certain she did not make any medication mistakes. I do not have any new suggestion from a neurologic standpoint today. She seems to be stable and improving. cc: Kilo Vincent III, MD
[2016-12-27] MEDS: LIPITOR PO SCH (20:23)
[2016-12-27] MEDS: ZOLOFT PO SCH (20:23)
[2016-12-27] MEDS: PROTONIX IV SCH (20:27)
[2016-12-28] MEDS: COZAAR PO SCH (09:01)
[2016-12-28] MEDS: VITAMIN B-1 PO SCH (09:01)
[2016-12-28] MEDS: FOLIC ACID PO SCH (09:01)
[2016-12-28] MEDS: EFFEXOR PO SCH (09:01)
[2016-12-28] MEDS: TOPAMAX PO SCH (09:01)
[2016-12-28] MEDS: OCUVITE LUTEIN & ZEAXANTHIN PO SCH (09:01)
[2016-12-28] MEDS: XANAX PO SCH (09:01)
[2016-12-28] MEDS: KEPPRA PO SCH (09:01)
[2016-12-28] MEDS: NICODERM PATCH TD SCH (09:01)
[2016-12-28] MEDS: VITAMIN D PO SCH (09:01)
[2016-12-28] MEDS ORDERED: ZOFRAN PO PRN (09:04)
--- NOTE | 2016-12-28 09:47 | EEG REPORT ---
DATE: 12/26/2016 REFERRING PHYSICIAN: Dr. Rupali Dodge and Dr. Quinton Pro. EEG #: [id number]. SPA DIRECTOR: Reva Golden. BACKGROUND INFORMATION: Technique: A digitally recorded EEG is performed with one additional channel for EKG. HISTORY OF PRESENT ILLNESS: This is a 61-year-old patient with history of seizures who presented with altered mental status and an open left wrist fracture. It is unclear whether her seizures are all benzodiazepine withdrawal- related or whether she has true epileptic seizures. An EEG is obtained to evaluate for possible seizure. Medications: Notable for Keppra, Topamax, Xanax, and p.r.n. Ativan. EEG FINDINGS: A moderately well-formed 9 hertz posterior dominant alpha rhythm is seen symmetrically in the occipital regions and attenuates with eye opening. The background consists of mixed alpha and beta frequencies. No focal slowing is noted. No epileptiform discharges and no seizures are noted. Hyperventilation was not performed. Photic stimulation did not induce a driving response. The patient becomes drowsy but stage II sleep is not seen. The EKG channel reveals regular R-R interval. IMPRESSION AND RECOMMENDATIONS: Normal awake and drowsy routine EEG. Of note, a normal EEG does not rule out epilepsy. cc: Rupali Dodge MD [facility]
[2016-12-28] MEDS: QVAR INH SCH (11:17)
[2016-12-28] MEDS: VENTOLIN HFA INH SCH (11:17)
[2016-12-28 13:14] VITALS: BP 144/66
--- NOTE | 2016-12-28 13:18 | PROGRESS NOTE ---
DATE: 12/28/2016 SUBJECTIVE: Mariia Moffett is a 61-year-old female who is postoperative day 4 from an open reduction and internal fixation of her left distal radius fracture. She has no complaints. OBJECTIVE: She is a well-developed, well-nourished female. She is alert, oriented, and cooperative with exam. Her hand is neurovascularly intact. She has brisk capillary refill. Her splint is intact. IMPRESSION: Stable left distal radius fracture, open reduction and internal fixation. PLAN: We well continue her cast for now. She will return to see me next week. She can go home or to rehab, at the hospitalist's discretion. cc: Beto Coon MD
--- NOTE | 2016-12-28 14:16 | DISCHARGE SUMMARY ---
ADMISSION DATE: 12/23/2016 DISCHARGE DATE: 12/28/2016 CONSULTATIONS: 1. Dr. Coon with orthopedics. 2. Dr. Rupali Dodge with neurology. PERTINENT PROCEDURES: 1. Head CT showed no evidence of acute intracranial disease. 2. Wrist x-ray showed severely comminuted distal radius and ulnar fractures. 3. Irrigation and debridement of left ulnar styloid fracture. Open reduction, internal fixation of left comminuted intra-articular distal radius fracture performed by Dr. Coon. 4. EEG showed normal awake and drowsy. 5. Abdominal ultrasound showed no evidence of acute disease. No evidence of ascites. DISCHARGE DIAGNOSES: 1. Altered mental status on presentation. The patient has improved. 2. Cognitive decline possibly underlying Alzheimer's versus long-standing memory defect from benzodiazepine use. 3. Comminuted fracture of distal radius and ulnar status post repair. She will leave her splint in place until next week. Follow up with Dr. Coon, at that time. 4. Depression since her over a year ago. She sees a counselor on a weekly basis. She is on an SSRI and SNRI improved. 5. Hyponatremia improved. 6. Hypertension, controlled. 7. Vitamin D deficiency. Continue with supplementation. 8. Abdominal distention secondary to constipation, resolved. HOSPITAL COURSE: Ms. Moffett is a 61-year-old female who has a past medical history of hypertension, seizure disorder, possibly asthma, COPD, dyslipidemia, anxiety disorder and depression, questionable suicide attempts in the past. The patient came from home with altered mental status and an injury to her forearm. Per ER documentation, it was a suicide attempt but after talking to the ED nurse that had not been confirmed. The sister had found the patient after she had fallen off the commode. I did have an EMS report stating that she cut her wrist with a knife. She had swelling, deformity, bruising and a fracture of her wrist that was open and had since been splinted. Reportedly, she took extra Xanax. She recently had an admission in [facility] and was discharged on Monday, which was 2 days prior to her admission here at [facility] for altered mental status with similar issues and had a neurological workup that was unremarkable. The patient was admitted for encephalopathy that was multifactorial. Her sodium was low as well as possible Xanax on board. Dr. Coon was consulted for her open comminuted radial ulnar fracture. She was observed in the ICU, because of questionable suicidal ideation; however, it could never be confirmed. The patient did undergo repair with Dr. Coon. She had irrigation and debridement as well as open reduction and internal fixation of the left comminuted intra-articular distal radius fracture. Dr. Dodge was consulted for patient's encephalopathy. She recommended an EEG; it showed normal awake and drowsy. At the time of Dr. Dodge's consultation the patient still had no memory of what happened. She was followed up by Dr. Vincent. The patient is now more awake, alert, and attentive. She seems to be more appropriate. She told Dr. Vincent that she had regained some memory and that she remembers she fell in the bathroom and injured her arm. She does not recall why she fell but she did report that she did not make any medication mistakes. There were no more suggestions from a neurological standpoint. Central Supply Assistant was brought on for rehab placement for the patient. She was working with physical therapy. However, her insurance has denied rehab, so she will be discharged home today with physical therapy as well as home health. VITAL SIGNS: Temperature 97.5 degrees, heart rate 60, respirations 18, blood pressure 142/65, O2 is 97%. DISCHARGE DIET: Healthy heart. DISCHARGE MEDICATIONS: As per Dr. Pro. DISPOSITION: The patient is being discharged home. DISCHARGE INSTRUCTIONS: She will need to continue to wear her splint until next week. FOLLOWUP: She has an appointment with Dr. Coon on 01/03/2017, where she will follow up. The patient will also need to follow up with her primary care physician and continue to see her counselor on a weekly basis. The patient is to return to the ED for any worsening of symptoms. DISCHARGE TIME: Thirty minutes. Dictated by ALLIE Peña for Quinton Pro MD cc: Quinton Pro MD
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
[2016-12-28] MEDS ORDERED: KEPPRA PO SCH (21:00)
[2016-12-28] MEDS ORDERED: PROTONIX PO SCH (21:00)
[2016-12-29] MEDS ORDERED: KEPPRA PO SCH (09:00)
== END 2016-12-28 15:45 | disposition home health service (06) ==
LOC: ED 15:45 → SUATTDRO 21:49 → ICU 21:49 → 4N 12-25 13:13
PROVIDERS: ATTEND Internal Medicine

== ENCOUNTER 2018-12-27 13:48 | Inpatient (IN) ==
[2018-12-27] MEDS ORDERED: SOLU-MEDROL IV ONE (14:02)
[2018-12-27] MEDS ORDERED: DUONEB (A & A) INH ONE (14:03)
--- NOTE | 2018-12-27 14:13 | PROVIDER DOCUMENTATION ---
This chart was entered by Ana Mane Scribe, acting as scribe for John Birmingham CRNP. HPI-Respiratory General - General Chief Complaint: Shortness of Breath Stated Complaint: SOB Time Seen by Provider: 12/27/18 13:57 Source: patient Allergies/Adverse Reactions: Patient Allergies Allergy/AdvReac Type Severity Reaction Status Date / Time amoxicillin Allergy Severe ANAPHYLAXIS Verified 12/27/18 14:02 Penicillins Allergy Severe ANAPHYLAXIS Verified 12/27/18 14:02 cephalexin Allergy Unknown Verified 12/27/18 14:02 Home Medications: Home Medication List Medication Instructions Recorded Confirmed Last Taken Type Alprazolam 0.5 mg PO TID 02/01/15 10/10/18 02/05/18 History ATORVAstatin [Lipitor] 20 mg PO HS 09/05/16 10/10/18 02/04/18 History Cholecalciferol (Vitamin D3) 5,000 unit PO DAILY 12/23/16 10/10/18 02/05/18 History [Cholecalciferol] Clonidine [Catapres] 0.1 mg PO Q2-3H PRN PRN 12/23/16 10/10/18 02/05/18 History Levetiracetam [Keppra] 500 mg PO QAM #60 tablet 12/28/16 10/10/18 02/05/18 Rx Levetiracetam [Keppra] 250 mg PO HS 02/05/18 10/10/18 02/04/18 History Venlafaxine [Effexor] 75 mg PO TID 02/05/18 10/10/18 02/05/18 History Albuterol Sulfate Inhaler 2 puff INH [id number] 10/10/18 10/10/18 Unknown History [Ventolin Hfa] Meloxicam [Mobic] 15 mg PO DAILY #20 tab 10/10/18 Unknown Rx - History of Present Illness-Resp Nature of Presenting Problem: Patient is a 63 year old female who presents with shortness of breath that has been present since this morning. States having 3 breathing treatments today with no relief. History of COPD and reports she is on 3 L of oxygen /. Denies fever. Quality of Pain: reports: tightness Severity in ED: reports: mild Onset/Duration: reports: this morning Timing: reports: still present Cough Quality/Degree: reports: no cough Current Respiratory Medication Therapy: Initiated see nurses note Associated Symptoms: reports: shortness of breath Similar Symptoms Previously?: No Recently seen or treated by another doctor?: No Review of Systems - Adult - REVIEW OF SYSTEMS - ADULT Constitutional: reports: no symptoms reported. denies: chills, fever, fatique Eyes: reports: no symptoms reported Ears, Nose, Mouth & Throat: reports: no symptoms reported Cardiovascular: reports: no symptoms reported. denies: chest pain, irregular heart rate, palpitations Respiratory: reports: see HPI, shortness of breath. denies: cough, wheezing Gastrointestinal: reports: no symptoms reported Genitourinary: reports: no symptoms reported Musculoskeletal: reports: no symptoms reported Integumentary: reports: no symptoms reported Neurological: reports: no symptoms reported Psychiatric: reports: no symptoms reported Endocrine: reports: no symptoms reported Hematologic/Lymphatic: reports: no symptoms reported Allergic/Immunologic: reports: no symptoms reported All Other Systems: Reviewed and Negative Past History - Adult - PAST MEDICAL HISTORY-ADULT Review of Records: reports: Nursing Assessment Review, Medications Reviewed, Social history reviewed & non-contributory. Major Childhood Illnesses: reports: history unknown Cardiovascular: reports: blood clots, HTN, hyperlipidemia Respiratory: reports: COPD Gastrointestinal: reports: denies history Obstetrical/Gynecological: reports: denies history Genitourinary: reports: denies history Musculoskeletal: reports: denies history Neurological: reports: Seizures/Epilepsy Psychiatric: reports: anxiety, depression, other (panic) Endocrine/Immune: reports: denies history Other Conditions: reports: denies history - PRIOR SURGERIES/PROCEDURES Surgical/Procedure History: reports: reviewed, not pertinent - IMMUNIZATION STATUS Childhood Immunizations: See Nurse Assessment Flu Vaccine: See Nurse Assessment - FAMILY HISTORY Family History: reviewed, not pertinent - SOCIAL HISTORY Smoking: cigarettes, less than 1 pack/day Provider spent 3-5 mins advising pt. on dangers of tobacco.: Discussed manners to quit use, and f/u contacts for add'l counseling. Substance Use: alcohol Alcohol Use Frequency: occasionally Physical Exam-General - PHYSICAL EXAM-ADULT Initial Vital Signs Reviewed: Yes - CONSTITUTIONAL General Appearance: alert, no apparent distress. negative: lethargic, slow to respond - HEAD, EARS, NOSE, MOUTH & THROAT HENMT: moist mucous membranes. negative: angioedema, hearing deficit - RESPIRATORY Respiratory: chest non-tender, lungs clear, decreased breath sounds, increased rate (Pt. in tripod position). negative: crackles, rhonchi, wheezing - CARDIOVASCULAR Cardiovascular: normal peripheral pulses, regular rate, rhythm. negative: tachycardia, systolic murmur - GASTROINTESTINAL (ABDOMEN) Abdominal Exam: normal bowel sounds, non tender, soft. negative: distended, rigid, rebound - MUSCULOSKELETAL Back Exam: normal inspection, no vertebral tenderness. negative: ecchymosis, scoliosis Extremity: normal range of motion, non-tender, normal gait. negative: deformity, erythema, swelling - SKIN Integumentary: normal color, normal turgor, warm/dry. negative: cyanosis, ecchymosis, erythema, jaundice - NEUROLOGIC Neurologic: grossly normal, no motor/sensory deficits. negative: aphasia, facial droop - PSYCHIATRIC Psych/Mental Status: normal mood/affect, normal thought content, normal thought process, oriented x 3. negative: anxious, paranoid Progress - PLAN OF CARE/RESULTS Progress/Plan/Lab Results: Vital Signs - 8 hr 12/27/18 13:57 12/27/18 14:20 12/27/18 14:26 Temperature 98.6 F Pulse Rate 106 H 102 H 104 H Respiratory Rate 20 26 H 26 H Blood Pressure 182/88 O2 Sat by Pulse Oximetry 93 L 89 L 12/27/18 14:30 12/27/18 14:55 12/27/18 15:42 Temperature 98.7 F Pulse Rate 104 H 104 H Respiratory Rate 23 26 H Blood Pressure 192/90 O2 Sat by Pulse Oximetry 97 97 Laboratory Results - last 24 hr 12/27/18 12/27/18 12/27/18 14:10 14:10 14:10 WBC 13.31 H RBC 4.18 L Hgb 12.9 Hct 38.3 MCV 91.6 MCH 30.9 MCHC 33.7 RDW Std Deviation 13.5 Plt Count 262 MPV 9.7 Immature Gran % (Auto) 0.2 Neut % (Auto) 76.4 H Lymph % (Auto) 14.0 L Murray % (Auto) 8.8 Eos % (Auto) 0.4 Baso % (Auto) 0.2 Immature Gran # (Auto) 0.03 Neut # (Auto) 10.17 H Lymph # (Auto) 1.86 Murray # (Auto) 1.17 H Eos # (Auto) 0.05 Baso # (Auto) 0.03 PT INR PTT (Actin FS) Specimen Type Sample Site pH pCO2 pO2 HCO3 Base Excess Oxyhemoglobin ABG O2 Sat (Calculated) ABG O2 Saturation ABG Carboxyhemoglobin ABG Methemoglobin Vinnie Test A-a O2 Difference Total Hemoglobin Lactate Liter Flow Blood Gas Modality FiO2 % Sodium 139 Potassium 4.2 Chloride 97 L Carbon Dioxide 31 Anion Gap 11 BUN 10 Creatinine 0.4 L Estimated GFR/1.73 m2 > 60 BUN/Creatinine Ratio 25 Glucose 110 H Calculated Osmolality 277 Calcium 9.4 Total Bilirubin 0.60 AST 20 ALT 16 Alkaline Phosphatase 86 Creatine Kinase 80 Troponin T Tue-A-Xebhsvubhyg Pept 293 H Total Protein 7.5 Albumin 4.4 Globulin 3.0 Albumin/Globulin Ratio 1.0 Plasma Lactate Urine Color Urine Clarity Urine pH Ur Specific [place] Urine Protein Urine Ketones Urine Blood Urine Nitrite Urine Bilirubin Urine Urobilinogen Urine WBC Urine Glucose 12/27/18 12/27/18 12/27/18 14:10 14:10 14:15 WBC RBC Hgb Hct MCV MCH MCHC RDW Std Deviation Plt Count MPV Immature Gran % (Auto) Neut % (Auto) Lymph % (Auto) Murray % (Auto) Eos % (Auto) Baso % (Auto) Immature Gran # (Auto) Neut # (Auto) Lymph # (Auto) Murray # (Auto) Eos # (Auto) Baso # (Auto) PT 13.7 INR 1.00 PTT (Actin FS) 39.4 Specimen Type ARTERIAL Sample Site R RADIAL pH 7.40 pCO2 53 H* pO2 47 L* HCO3 29.6 H Base Excess 6.5 H Oxyhemoglobin 82.0 L* ABG O2 Sat (Calculated) 15.2 ABG O2 Saturation 89.1 L ABG Carboxyhemoglobin 6.90 H* ABG Methemoglobin 1.1 Vinnie Test YES A-a O2 Difference 115.0 Total Hemoglobin 13.2 Lactate 0.90 Liter Flow 3.0 Blood Gas Modality CANNULA FiO2 % 32.0 Sodium Potassium Chloride Carbon Dioxide Anion Gap BUN Creatinine Estimated GFR/1.73 m2 BUN/Creatinine Ratio Glucose Calculated Osmolality Calcium Total Bilirubin AST ALT Alkaline Phosphatase Creatine Kinase Troponin T < 0.010 Szi-C-Bgrorcdkiku Pept Total Protein Albumin Globulin Albumin/Globulin Ratio Plasma Lactate Urine Color Urine Clarity Urine pH Ur Specific [place] Urine Protein Urine Ketones Urine Blood Urine Nitrite Urine Bilirubin Urine Urobilinogen Urine WBC Urine Glucose 12/27/18 12/27/18 14:35 15:11 WBC RBC Hgb Hct MCV MCH MCHC RDW Std Deviation Plt Count MPV Immature Gran % (Auto) Neut % (Auto) Lymph % (Auto) Murray % (Auto) Eos % (Auto) Baso % (Auto) Immature Gran # (Auto) Neut # (Auto) Lymph # (Auto) Murray # (Auto) Eos # (Auto) Baso # (Auto) PT INR PTT (Actin FS) Specimen Type Sample Site pH pCO2 pO2 HCO3 Base Excess Oxyhemoglobin ABG O2 Sat (Calculated) ABG O2 Saturation ABG Carboxyhemoglobin ABG Methemoglobin Vinnie Test A-a O2 Difference Total Hemoglobin Lactate Liter Flow Blood Gas Modality FiO2 % Sodium Potassium Chloride Carbon Dioxide Anion Gap BUN Creatinine Estimated GFR/1.73 m2 BUN/Creatinine Ratio Glucose Calculated Osmolality Calcium Total Bilirubin AST ALT Alkaline Phosphatase Creatine Kinase Troponin T Bin-B-Jlohxctmohp Pept Total Protein Albumin Globulin Albumin/Globulin Ratio Plasma Lactate 0.9 Urine Color YELLOW Urine Clarity CLEAR Urine pH 7.0 Ur Specific [place] 1.010 Urine Protein TRACE A Urine Ketones NEGATIVE Urine Blood 1+ A Urine Nitrite NEGATIVE Urine Bilirubin NEGATIVE Urine Urobilinogen NORMAL Urine WBC 2+ A Urine Glucose NEGATIVE Orders Category Date Time Status Cardiac Monitoring DIRECTED Care 12/27/18 14:28 Active Notify MD of + Sepsis Screen NOW Care 12/27/18 14:28 Active Notify Physician As Ordered Care 12/27/18 14:28 Active Saline Loc NOW Care 12/27/18 14:01 Active CHEST-2 VIEWS [RAD] Stat Exams 12/27/18 14:02 Completed ABG [RESP] Routine Lab 12/27/18 14:15 Completed BLOOD CULTURE [BLDCUL] Stat Lab 12/27/18 14:42 Ordered CBC WITH ELECTRONIC DIFF [HEME] Stat Lab 12/27/18 14:10 Completed CK PROFILE [SP CHEM] Stat Lab 12/27/18 14:10 Completed COMPREHENSIVE METABOLIC PANEL [CHEM] Stat Lab 12/27/18 14:10 Completed LACTATE, PLASMA [CHEM] Lab 12/27/18 14:35 Completed LACTATE, PLASMA [CHEM] Lab 12/27/18 17:30 Uncollected LACTATE, PLASMA [CHEM] Lab 12/27/18 20:30 Uncollected PRO B-NATRIURETIC PEPTIDE Stat Lab 12/27/18 14:10 Completed PROTIME WITH INR [COAG] Stat Lab 12/27/18 14:10 Completed PTT [COAG] Stat Lab 12/27/18 14:10 Completed SPUTUM CULTURE WITH GRAM STAIN [RM] Routine Lab 12/27/18 14:35 Received TROPONIN T Stat Lab 12/27/18 14:[address] W/POSS RFLX CULT [URINALYSIS] Stat Lab 12/27/18 15:11 Results Albuterol 2.5MG/Ipratrop 0.5MG [Duoneb (A & A)] Med 12/27/18 14:03 Discontinued 6 ml INH NOW ONE Azithromycin 500 mg/Ns [Zithromax 500 mg/Ns] Med 12/27/18 15:10 Active 500 mg in 250 ml IV NOW Methylprednisolone Sod Succ [Solu-Medrol] Med 12/27/18 14:02 Discontinued 80 mg IV NOW ONE Aerosol Treatments Routine Oth 12/27/18 14:03 Completed Aerosol Treatments Stat Oth 12/27/18 14:03 Completed Oxygen Device Stat Oth 12/27/18 14:28 Active EKG [EKG] Stat Ther 12/27/18 14:01 Ordered Transfer/Admit Order [TRANSFER] Routine Transfer 12/27/18 15:52 Ordered Discussed results and plan of care with patient. Patient agrees with plan and verbalizes understanding. Result Diagrams: 12/27/18 14:10 12/27/18 14:10 - EKG 1 Time of EKG reading by physician:: 15:11 EKG Read and Signed by:: Angela Newton EKG Interpretation (*Must complete 3 of following elements*): Abnormal Rate: 105 Rhythm: Sinus tach - XRAY 1 XRAY Study: Chest ([facility] [address] , [address], [place] [address] Department of Imaging Patient: ROSEMARIE ESPARZA Date: 12/27/18#: [id number] : 1955DM [id number] Age/Sex: 63/FRoom/Bed: Loc: P.ED Ordering Physician: John Birmingham Family Physician: Jose Alfredo Ross Reason for Procedure: SOB Signed EXAM: CHEST-2 VIEWS - 12/27/2018 HISTORY: SOB TECHNIQUE: Chest two views COMPARISON: 12/17/2016 portable chest FINDINGS: There is cardiomegaly similar to prior. There are apparent COPD changes with hyperexpanded lungs. There is subsegmental atelectasis at the right middle lobe. There is prominence of central vascular markings, some this may be chronic. There is no other consolidation, substantial pleural effusion, or pneumothorax identified. There is apparent old mid thoracic vertebral body compression deformity with secondary spondylosis noted. IMPRESSION: Stable cardiomegaly. Apparent COPD exacerbation. Subsegmental atelectasis at right middle lobe. Central vascular congestion versus chronic change. Electronically signed by Guanako Bradshaw 12/27/2018 3:02 PM 12/27/18 1502 Interpreting Physician: Guanako Bradshaw MD Dictated Date/Time: 12/27/18 [id number] cc: John Birmingham; Jose Alfredo Ross) XRAY Interpretation: See note - CONSULTS/PCP/HOSPITALIST Notification #1 *Consult/PCP/Hospitalist*: Dr. Arias Time Discussed: 15:53 Reason/Comments: Admission Consult Disposition: Will see in ED, Admit Departure - Departure Date of Disposition Decision: 12/27/18 Time of Disposition Decision: 15:09 DIAGNOSIS: COPD exacerbation, Hypoxia Leukocytosis Qualifiers: Leukocytosis type: unspecified Qualified Code(s): D72.829 - Elevated white bl ood cell count, unspecified Disposition: ADMITTED INPATIENT 09 Certified Medical Emergency: Emergent Condition: Stable Referrals and Follow-Ups: Jose Alfredo Ross [Primary Care Provider] - - Critical Care Note This patient required my direct & personal management of CC.: No Attestation - Physician/ JONO Attestation Patient care was provided by Advanced Practice Provider:: Yes Advanced Practice Provider:: John Birmingham Advanced Practice Provider documentation review:: The Mid-level provider documentation, treatment plan and medical decision making was reviewed by the physician who agrees with all treatment and medical decision making by the MLP. The physician spent face to face time with patient:: No Advanced Practice Provider documentation review:: Supervising physician onsite and consulted in the evaluation and care of this patient. The physician did not have a face to face encounter with the patient. This chart was documented by the indicated scribe, (Ana Mane Scribe) and accurately reflects the services I performed and decisions made by me, John Birmingham CRNP, as attested by the provider's signature.
[2018-12-27 14:26] LABS: BASO# 0.03 X1000 (0.0-0.2); BASO% 0.2 % (0.0-0.8); EOS# 0.05 X1000 (0.0-0.7); EOS% 0.4 % (0.0-10.0); HEMATOCRIT 38.3 % (37.0-47.0); HEMOGLOBIN 12.9 g/dL (12.0-16.0); IMM GRAN# 0.03 X1000 (0.0-0.04); IMM GRAN% 0.2 % (0.0-0.5); LYMPH# 1.86 X1000 (1.2-3.4); MCH 30.9 PG (27-31); MCHC 33.7 g/dL (33-37); MCV 91.6 FL (81-99); MONO# 1.17 X1000 (0.11-0.59); MONO% 8.8 % (1.7-9.3); MPV 9.7 FL (7.4-10.4); NEUT# 10.17 X1000 (1.4-6.5); NEUT% 76.4 % (42.2-75.2); PLT 262 X1000 (130-400); RBC 4.18 XMIL (4.2-5.4); RDW 13.5 % (11.5-14.5); WBC 13.31 X1000 (4.8-10.8)
[2018-12-27 14:32] LABS: BE 6.5 mmoll (-3.0-3.0); BLOOD TYPE ARTERIAL; HCO3-(ACT) 29.6 mmoll (20.0-26.0); METHB 1.1 % (0.0-1.5); O2(CT) 15.2 mL/dL (15.0-23.0); PCO2(98.6) 53 mmHg (35-45); SAMPLE BLOOD; SAO2 89.1 % (95.0-100.0); THB 13.2 g/dL (11.5-17.4)
[2018-12-27 14:40] LABS: PO2(98.6) 47 mmHg (60-100)
[2018-12-27 14:42] LABS: PROTIME 13.7 Seconds (11.0-16.0); PTT 39.4 Seconds (22.3-41.8)
[2018-12-27 14:42] LABS: ALLEN TEST YES; MODALITY CANNULA
[2018-12-27 14:56] LABS: AGAP 11; ALBUMIN 4.4 g/dL (3.5-5.0); ALKALINE PHOSPHATASE 86 U/L (32-104); BUN 10 mg/dL (8-22); CALCIUM 9.4 mg/dL (8.8-10.2); CHLORIDE 97 mmol/L (98-107); CK PROFILE 80 U/L (24-173); COSMO 277; CREATININE 0.4 mg/dL (0.5-0.9); ESTIMATED GFR > 60; GLUCOSE 110 mg/dL (70-104); GOT 20 U/L (10-30); GPT 16 U/L (10-36); POTASSIUM 4.2 mmol/L (3.5-5.1); SODIUM 139 mmol/L (136-145); TCO2 31 mmol/L (25-35); TOTAL PROTEIN 7.5 g/dL (6.3-8.3)
--- NOTE | 2018-12-27 15:04 | Diag Imaging Result Doc PS360 ---
EXAM: CHEST-2 VIEWS - 12/27/2018 HISTORY: SOB TECHNIQUE: Chest two views COMPARISON: 12/17/2016 portable chest FINDINGS: There is cardiomegaly similar to prior. There are apparent COPD changes with hyperexpanded lungs. There is subsegmental atelectasis at the right middle lobe. There is prominence of central vascular markings, some this may be chronic. There is no other consolidation, substantial pleural effusion, or pneumothorax identified. There is apparent old mid thoracic vertebral body compression deformity with secondary spondylosis noted. IMPRESSION: Stable cardiomegaly. Apparent COPD exacerbation. Subsegmental atelectasis at right middle lobe. Central vascular congestion versus chronic change. Electronically signed by Guanako Bradshaw 12/27/2018 3:02 PM
[2018-12-27] MEDS ORDERED: ZITHROMAX 500 MG/NS 500 MG/250 ML IVPB IV ONE (15:10)
[2018-12-27 15:47] LABS: BILIRUBIN URINE NEGATIVE (NEGATIVE); BLOOD URINE 1+ (NEGATIVE); CLARITY CLEAR (CLEAR); COLOR YELLOW; GLUCOSE URINE NEGATIVE (NEGATIVE); KETONE URINE NEGATIVE (NEGATIVE); LEUKOCYTES URINE 2+ (NEGATIVE); NITRITE URINE NEGATIVE (NEGATIVE); PROTEIN URINE TRACE mg/dL (NEGATIVE); UROBILINOGEN URINE NORMAL
[2018-12-27 15:53] LABS: URINE WBC 20-40 /HPF (<10)
[2018-12-27 15:54] LABS: URINE BACTERIA 1+ /HFP; URINE EPITHELIAL CELLS >10 /HPF (<10); URINE RBC <10 /HPF (<10); URINE SMALL ROUND CELLS TRANSITIONAL PRESENT; URINE SOURCE CLEAN CATCH
[2018-12-27] MEDS ORDERED: ZOFRAN IV PRN (17:08)
[2018-12-27] MEDS ORDERED: TYLENOL PO PRN (17:08)
--- NOTE | 2018-12-27 18:15 | EKG Report ---
Test Performed on : 12/27/2018 3:24:10 PM Test Reason : SOB Blood Pressure : / mmHG Vent. Rate : 105 BPM Atrial Rate : 105 BPM P-R Int : 156 ms QRS Dur : 142 ms QT Int : 376 ms P-R-T Axes : 037 052 022 degrees QTc Int : 496 ms Sinus tachycardia. 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 rate has increased BY 52 BPM QT has lengthened Unconfirmed Result
[2018-12-27] MEDS: ROCEPHIN 1 GM in NS 50 ML IV SCH (18:17)
[2018-12-27] MEDS ORDERED: DUONEB (A & A) INH PRN (18:45)
[2018-12-27] MEDS: DUONEB (A & A) INH SCH ×2 (19:16→22:57)
[2018-12-27] MEDS: SOLU-MEDROL IV SCH (21:43)
--- NOTE | 2018-12-27 21:57 | HISTORY AND PHYSICAL ---
ADDENDUM: The patient has COPD. She is on home oxygen. She still smokes, although she states she only smokes cigars or cigarillos, small little cigars. In any case, she came in hypoxic: PH 7.4, pCO2 was 53, PaO2 was 47. White count is 13. Chest x-ray I think was clear, except for possible right middle lobe atelectasis. The patient is admitted for COPD exacerbation, acute hypoxic respiratory failure. We will continue steroids, breathing treatments and follow clinically. Repeat chest x-ray in a day or two. We will do DVT prophylaxis and follow closely. cc: Manish Arias MD
[2018-12-27] MEDS: XANAX PO PRN (22:01)
[2018-12-27] MEDS: NICODERM PATCH TD PRN (22:01)
--- NOTE | 2018-12-27 22:05 | HISTORY AND PHYSICAL ---
PRIMARY CARE PHYSICIAN: Dr. Ross. CHIEF COMPLAINT: Shortness of breath despite using her O2 at 3 L via nasal cannula continuously. HISTORY OF PRESENTING ILLNESS: This is a 63-year-old female who presents to [facility] ER with complaints of shortness of breath that began this morning. States she took 3 breathing treatments at home with no relief. Uses O2 via nasal cannula at 3 L/minute. She continues to smoke approximately half a pack of cigarettes a day despite having multiple admissions for COPD exacerbations and despite education for smoking cessation. Her O2 saturation on 3 L was 89%. She was placed on a Venturi mask at 15% and is now saturating 97%. Her ABG showed a pH of 7.40, pCO2 of 53, PO2 47, bicarbonate 29.6 on the 3 L via nasal cannula. Her chest x-ray showed stable cardiomegaly and apparent COPD exacerbation with subsegmental atelectasis at the right middle lobe and central vascular congestion versus chronic change. She will be admitted to the intensive care unit for further evaluation and treatment. PAST MEDICAL HISTORY: Blood clots, hypertension, hyperlipidemia, COPD, seizures, depression and anxiety. PAST SURGICAL HISTORY: Left arm surgery. FAMILY HISTORY: Reviewed and noncontributory. SOCIAL HISTORY: She currently lives alone. Smokes a half a pack of cigarettes a day and has done so for the past 40 years. Denies any alcohol or illicit drug use. ALLERGIES: Amoxicillin, penicillin and cephalexin. HOME MEDICATIONS: A current list will need to be obtained, reconciled, reviewed and restarted as appropriate. We will place an order for nursing to update and confirm home medications. LABORATORY DATA: Showed a white blood cell count of 13.31, hemoglobin of 12.9, hematocrit 38.3, platelets 262,000. PT and INR of 13.7 and 1. ABG with a pH of 7.40, pCO2 of 53, PO2 of 47, bicarbonate 29.6, this was on 3 L via nasal cannula. Sodium 139, potassium 4.2, chloride 97, CO2 of 31, BUN of 10, creatinine 0.4, glucose 110. Cardiac enzyme was negative, proBNP of 293. Plasma lactate 0.9. Urinalysis showed negative nitrites, 2+ white blood cells, 1+ bacteria. Chest x-ray showed stable cardiomegaly, apparent COPD exacerbation, subsegmental atelectasis of the right middle lobe and central vascular congestion versus chronic change. REVIEW OF SYSTEMS: She denied any fever, chills, blurred vision, dizziness, chest pain. She has a congested nonproductive cough, shortness of breath. Denied any abdominal pain, constipation, diarrhea, burning or hurting with urination. PHYSICAL EXAMINATION: VITAL SIGNS: She had a temperature of 98.6 degrees, pulse 106, respirations 20, blood pressure 182/88, was saturating 93% on 3 L when she first arrived, it did drop to 89%. She was placed on a Venturi mask at 15%, saturating 97%. GENERAL: This is a 63-year-old female who is sitting up in the bed initially talking on her cell phone. Answers questions appropriately. HEENT: Normocephalic, atraumatic. Normal ENT inspection. Oropharynx and nares are clear. Eyes, pupils are equal, round, reactive to light and accommodation. Extraocular movements are intact. NECK: Normal inspection. Normal range of motion. LUNGS: With decreased breath sounds throughout entire posterior lung chapin. Equal lung expansion. Chest wall movement noted. HEART: Regular rate and rhythm. No murmurs, rubs, or gallops. ABDOMEN: Soft, nontender, nondistended. Bowel sounds are present x4 quadrants. MUSCULOSKELETAL: She has 5/5 strength x4 extremities. NEUROLOGICAL: The cranial nerves 2-12 appear grossly intact. ASSESSMENT: 1. An acute chronic obstructive pulmonary disease exacerbation. 2. An acute respiratory failure hypoxemic and hypercapnic. 3. Urinary tract infection. 4. Hypertension. 5. Tobacco abuse. PLAN: She is being admitted to the intensive care unit at [place], placed on telemetry. O2 per protocol. Healthy heart diet. Neuro checks q.4 hours for 24 hours. Rocephin 1 gram IV q.24, Solu-Medrol 80 mg IV q.8h and we will wean as she improves. We will check a urine culture. Serial plasma lactate levels. Healthy heart diet. We will update and confirm home medications. Recheck a CBC, BMP in the a.m. and further orders after seen by attending. Dictated by ALLIE Farmer for Manish Arias MD cc: ALLIE Farmer MD Charles D Coffey, MD
[2018-12-28] MEDS: DUONEB (A & A) INH SCH ×2 (02:51→07:54)
[2018-12-28 03:26] LABS: BE 4.5 mmoll (-3.0-3.0); BLOOD TYPE ARTERIAL; HCO3-(ACT) 28.4 mmoll (20.0-26.0); METHB 0.7 % (0.0-1.5); O2(CT) 16.5 mL/dL (15.0-23.0); O2HB 94.5 % (95.0-99.0); PO2(98.6) 77 mmHg (60-100); SAMPLE BLOOD; THB 12.4 g/dL (11.5-17.4); pH(98.6) 7.38 (7.35-7.45)
[2018-12-28 03:27] LABS: PCO2(98.6) 52 mmHg (35-45)
[2018-12-28 03:28] LABS: ALLEN TEST YES; MODALITY VENTIMASK
[2018-12-28] MEDS: SOLU-MEDROL IV SCH ×3 (05:50→23:03)
[2018-12-28] MEDS: LOVENOX SUBQ SCH (05:51)
[2018-12-28] MEDS: APRESOLINE IV PRN ×2 (06:37→21:15)
[2018-12-28 07:33] LABS: BASO# 0.01 X1000 (0.0-0.2); BASO% 0.1 % (0.0-0.8); HEMATOCRIT 34.4 % (37.0-47.0); HEMOGLOBIN 11.3 g/dL (12.0-16.0); IMM GRAN# 0.03 X1000 (0.0-0.04); IMM GRAN% 0.2 % (0.0-0.5); LYMPH# 0.96 X1000 (1.2-3.4); LYMPH% 7.4 % (20.5-51.1); MCH 30.1 PG (27-31); MCHC 32.8 g/dL (33-37); MCV 91.5 FL (81-99); MONO% 3.1 % (1.7-9.3); MPV 10.4 FL (7.4-10.4); NEUT# 11.65 X1000 (1.4-6.5); NEUT% 89.2 % (42.2-75.2); PLT 267 X1000 (130-400); RBC 3.76 XMIL (4.2-5.4); RDW 13.1 % (11.5-14.5); WBC 13.05 X1000 (4.8-10.8)
[2018-12-28 07:51] LABS: AGAP 8; BUN 12 mg/dL (8-22); CALCIUM 8.9 mg/dL (8.8-10.2); CHLORIDE 98 mmol/L (98-107); COSMO 278; CREATININE 0.4 mg/dL (0.5-0.9); ESTIMATED GFR > 60; GLUCOSE 211 mg/dL (70-104); POTASSIUM 3.7 mmol/L (3.5-5.1); SODIUM 136 mmol/L (136-145); TCO2 30 mmol/L (25-35)
[2018-12-28 09:12] LABS: LYMPHS 8 % (21-51); MONO 2 % (1-9); SEGS 90 % (42-75)
[2018-12-28] MEDS: NICODERM PATCH TD PRN (10:18)
[2018-12-28] MEDS: XANAX PO PRN ×3 (10:18→22:08)
--- NOTE | 2018-12-28 11:47 | PROGRESS NOTE ---
DATE: 12/28/2018 SUBJECTIVE: Patient has no major complaints. She looks a little wound up and anxious, but she seems to be doing okay. Her breathing has improved. OBJECTIVE: Blood pressure 157/92, heart rate of 88, respiratory rate 24, and temperature 98.2, and 97 percent on 4 L.Cardiovascular: Regular rate and rhythm. Pulmonary: Bilateral breath sounds. Clear to auscultation. GI: Soft, nontender, and nondistended. Bowel sounds are positive. I did not hear any rhonchi today. LABORATORY DATA: White count 13. Hemoglobin and hematocrit 11 and 34, and platelets 267,000. A pH 7.38, pCO2 52, PaO2 77; that was on 50%. Glucose was 211, which I do not think she has any diabetes history. PROBLEM LIST: 1. Acute chronic obstructive pulmonary disease exacerbation with acute respiratory failure. We will continue breathing treatments, antibiotics and steroids. I think we can wean her steroids a little bit. 2. Acute hypoxic respiratory failure due to chronic obstructive pulmonary disease exacerbation. There is not clearly a pneumonia. We will continue empiric antibiotics, and breathing treatments as described. 3. Anxiety disorder. She may have some underlying psychiatric issues. She has a bit of a weird affect and sometimes talks somewhat tangentially. In any case, we will resume her medications and follow once they have been resolved. Advised on smoking cessation. cc: Manish Arias MD
[2018-12-28] MEDS: EFFEXOR XR PO SCH (12:20)
[2018-12-28] MEDS: XOPENEX NEB INH SCH ×2 (15:59→22:54)
[2018-12-28] MEDS: ATROVENT NEB INH SCH ×2 (15:59→22:54)
[2018-12-28] MEDS: ROCEPHIN 1 GM in NS 50 ML IV SCH (16:37)
[2018-12-29] MEDS ORDERED: KEPPRA PO ONE (00:46)
[2018-12-29] MEDS ORDERED: LIPITOR PO SCH (01:00)
[2018-12-29] MEDS: ATROVENT NEB INH SCH ×3 (03:29→16:47)
[2018-12-29] MEDS: LOVENOX SUBQ SCH (07:57)
[2018-12-29] MEDS: EFFEXOR XR PO SCH (08:03)
[2018-12-29] MEDS: SOLU-MEDROL IV SCH ×2 (08:03→13:25)
[2018-12-29 08:22] LABS: AGAP 10; BUN 17 mg/dL (8-22); CALCIUM 9.4 mg/dL (8.8-10.2); CHLORIDE 98 mmol/L (98-107); COSMO 283; CREATININE 0.4 mg/dL (0.5-0.9); ESTIMATED GFR > 60; GLUCOSE 132 mg/dL (70-104); HEMATOCRIT 40.1 % (37.0-47.0); HEMOGLOBIN 13.2 g/dL (12.0-16.0); MCH 30.1 PG (27-31); MCV 91.6 FL (81-99); POTASSIUM 4.1 mmol/L (3.5-5.1); RBC 4.38 XMIL (4.2-5.4); SODIUM 140 mmol/L (136-145); TCO2 32 mmol/L (25-35); WBC 17.06 X1000 (4.8-10.8)
[2018-12-29 08:23] LABS: BASO# 0.01 X1000 (0.0-0.2); BASO% 0.1 % (0.0-0.8); IMM GRAN# 0.08 X1000 (0.0-0.04); IMM GRAN% 0.5 % (0.0-0.5); LYMPH# 1.26 X1000 (1.2-3.4); LYMPH% 7.4 % (20.5-51.1); MCHC 32.9 g/dL (33-37); MONO# 0.63 X1000 (0.11-0.59); MONO% 3.7 % (1.7-9.3); MPV 9.7 FL (7.4-10.4); NEUT# 15.08 X1000 (1.4-6.5); NEUT% 88.3 % (42.2-75.2); PLT 330 X1000 (130-400); RDW 13.5 % (11.5-14.5)
[2018-12-29] MEDS: XOPENEX NEB INH SCH ×2 (08:33→16:47)
[2018-12-29 08:40] LABS: BANDS 1 % (0-1); LYMPHS 6 % (21-51); MONO 4 % (1-9); POLYCHROM OCCASIONAL; SEGS 89 % (42-75)
[2018-12-29] MEDS ORDERED: KEPPRA PO SCH ×3 (09:00→21:00)
[2018-12-29] MEDS ORDERED: COZAAR PO SCH (09:00)
[2018-12-29] MEDS: XANAX PO PRN (09:36)
[2018-12-29] MEDS: NICODERM PATCH TD PRN (09:36)
[2018-12-29] MEDS: XANAX PO SCH ×2 (13:25→16:57)
[2018-12-29] MEDS ORDERED: VENTOLIN HFA INH SCH (15:00)
[2018-12-29 15:44] VITALS: BP 150/78
[2018-12-29] MEDS ORDERED: HUMALOG (PARKWAY) SUBQ SCH (16:00)
[2018-12-29] MEDS: ROCEPHIN 1 GM in NS 50 ML IV SCH (16:57)
[2018-12-30] MEDS ORDERED: MOBIC PO SCH (09:00)
[2018-12-30] MEDS ORDERED: VITAMIN D PO SCH (09:00)
[2018-12-30] MEDS ORDERED: KEPPRA PO SCH (09:00)
[2018-12-30] MEDS ORDERED: PRINIVIL PO SCH (09:00)
--- NOTE | 2018-12-30 15:01 | DISCHARGE SUMMARY ---
ADMISSION DATE: 12/27/2018 DISCHARGE DATE: 12/29/2018 DISCHARGE DIAGNOSES: 1. Acute chronic obstructive pulmonary disease exacerbation. 2. Acute hypoxic respiratory failure. 3. Anxiety disorder, possible underlying depression. CONSULTATIONS: None. Briefly, this is a 63-year-old female with history of COPD. She persistently smokes. She is on home oxygen at 3 L. She came in with a PaO2 of 47, significant wheezing. Her chest x-ray showed possibly some early pneumonia in her right middle lobe. She improved radically within about 24 hours with breathing treatments. We were able to wean her steroids. We transitioned to the floor. She has a fairly odd affect. I am really not quite sure what that had been related to; sometime she seems a little bit disconnected. She says things like, "Well you're not going to be able to help me with my main problem," unclear which she is alluding to. She had no suicidal ideations or anything like that. Now, her white count did jump up to 17,000, but she has been on fairly high-dose steroids. Her pCO2 is 52, her pH was normal, PaO2 is 77. She is down to her 3 L the day of discharge. Her wheezing has resolved, and I feel comfortable with discharging her today. Now, her sputum is growing out 2 different gram-negative rods, so we will have to look at those, follow up on those, and see if we can get some treatment for her. The problem is she is allergic to multiple medicines, specifically penicillins and cephalexin. I will discharge her on doxycycline, and we will see how she does there. Levaquin is an option, but she has seizure disorder so we have to be careful using that, but I am going to discharge her on that, and we will follow up on her sputum culture. Discharge condition is stable. Continue to follow. DISCHARGE MEDICATIONS: Xanax 0.5 t.i.d., vitamin D3 of 5000 units daily, Effexor 150 daily, Keppra 250 at bedtime, Ventolin, doxycycline 100 b.i.d. for 7 days, Keppra 500 daily, Mobic 15 daily, prednisone taper, and she really needs to be on DuoNeb q.4 h. or at least q.6 h. DISCHARGE CONDITION: Stable. FOLLOW-UP: Follow up with her PCP who is Dr. Jose Alfredo Ross, and we will continue to monitor. COORDINATION TIME: A 32-minute discharge. cc: Manish Arias MD
== END 2018-12-29 19:50 | disposition home or self-care (01) | DRG 189 ==
LOC: P.ED 13:48 → P.ICU 17:04 → P.MEDSURG 12-29 12:38
PROVIDERS: ATTEND Internal Medicine
CPT/HCPCS: 71020; 71046; 80048; 80053; 81001; 82550; 82805; 82948; 83605; 83880; 84484; 85025; 85610; 85730; 87040; 87070; 87077; 87088; 87186; 87205; 93005; 94640; 94761; 96365; 96366; 96375; 99285; A9270; J0360; J0456; J0696; J1650; J2930; XXXXX

== ENCOUNTER 2018-12-31 19:45 | Inpatient (IN) ==
[2018-12-31] MEDS ORDERED: DUONEB (A & A) INH ONE (20:07)
[2018-12-31 20:25] LABS: URINE SOURCE CATH
[2018-12-31 20:27] LABS: BASO% 1.2 % (0.0-0.8); EOS# 0.04 X1000 (0.0-0.7); EOS% 0.2 % (0.0-10.0); HEMATOCRIT 43.9 % (37.0-47.0); HEMOGLOBIN 14.8 g/dL (12.0-16.0); IMM GRAN# 0.47 X1000 (0.0-0.04); IMM GRAN% 2.8 % (0.0-0.5); LYMPH# 1.62 X1000 (1.2-3.4); LYMPH% 9.6 % (20.5-51.1); MCH 30.6 PG (27-31); MCHC 33.7 g/dL (33-37); MCV 90.9 FL (81-99); MONO% 2.4 % (1.7-9.3); MPV 9.9 FL (7.4-10.4); NEUT# 14.15 X1000 (1.4-6.5); NEUT% 83.8 % (42.2-75.2); PLT 356 X1000 (130-400); RBC 4.83 XMIL (4.2-5.4); RDW 13.4 % (11.5-14.5); WBC 16.88 X1000 (4.8-10.8)
[2018-12-31 20:28] LABS: ALLEN TEST YES; BE 10.3 mmoll (-3.0-3.0); BLOOD TYPE ARTERIAL; HCO3-(ACT) 32.7 mmoll (20.0-26.0); METHB 1.1 % (0.0-1.5); O2(CT) 17.1 mL/dL (15.0-23.0); PO2(98.6) 60 mmHg (60-100); SAMPLE BLOOD; SAO2 95.8 % (95.0-100.0); THB 14.1 g/dL (11.5-17.4); pH(98.6) 7.41 (7.35-7.45)
[2018-12-31 20:29] LABS: BILIRUBIN URINE NEGATIVE (NEGATIVE); BLOOD URINE NEGATIVE (NEGATIVE); COLOR STRAW; GLUCOSE URINE NEGATIVE (NEGATIVE); KETONE URINE NEGATIVE (NEGATIVE); LEUKOCYTES URINE NEGATIVE (NEGATIVE); NITRITE URINE NEGATIVE (NEGATIVE); PROTEIN URINE NEGATIVE (NEGATIVE); TURBIDITY URINE CLEAR (CLEAR); UROBILINOGEN URINE NORMAL (NORMAL)
--- NOTE | 2018-12-31 20:29 | Diag Imaging Result Doc PS360 ---
EXAM: CHEST-1 VIEW HISTORY: ams, sob TECHNIQUE: Chest single view COMPARISON: None. FINDINGS: The lungs are well expanded. The heart is enlarged. The vessels are distended. There are no infiltrates. No effusion identified. IMPRESSION: Cardiomegaly with pulmonary edema Electronically signed by Sergio Lennon 12/31/2018 8:27 PM
[2018-12-31 20:30] LABS: UR EPITHELIAL CELLS <10 /HPF (<10); URINE BACTERIA NEGATIVE /HPF; URINE RBC <10 /HPF (<10); URINE WBC <10 /HPF (<10)
[2018-12-31 20:30] LABS: MODALITY CANNULA; O2HB 86.4 % (95.0-99.0); PCO2(98.6) 59 mmHg (35-45)
--- NOTE | 2018-12-31 20:52 | Diag Imaging Result Doc PS360 ---
EXAM: CT HEAD W/O CONTRAST HISTORY: ams TECHNIQUE: Emergency CT of the head without contrast COMPARISON: 12/23/2016 FINDINGS: No parenchymal hemorrhage. No epidural or subdural hematoma. No subarachnoid hemorrhage. There are chronic microvascular ischemic changes. No mass identified on this noncontrasted exam. No hydrocephalus. No sinus opacification. IMPRESSION: 1.No hemorrhage 2.Chronic microvascular ischemic changes This exam was performed using automated exposure control, adjustment of mA or kV according to patient size, and/or use of iterative reconstruction technique. Electronically signed by Sergio Lennon 12/31/2018 8:49 PM
--- NOTE | 2018-12-31 20:59 | PROVIDER DOCUMENTATION ---
This chart was entered by Leonila Peñaloza Scribe, acting as scribe for Arpan Joseph MD. HPI-General Adult - General Chief Complaint: Altered Mental Status Stated Complaint: ams Time Seen by Provider: 12/31/18 19:53 Source: patient, EMS Allergies/Adverse Reactions: Patient Allergies Allergy/AdvReac Type Severity Reaction Status Date / Time amoxicillin Allergy Severe ANAPHYLAXIS Verified 12/31/18 20:09 Penicillins Allergy Severe ANAPHYLAXIS Verified 12/31/18 20:09 cephalexin Allergy Unknown Verified 12/31/18 20:09 Home Medications: Home Medication List Medication Instructions Recorded Confirmed Last Taken Type Alprazolam 0.5 mg PO TID 02/01/15 12/31/18 02/05/18 History Cholecalciferol (Vitamin D3) 5,000 unit PO DAILY 12/23/16 12/31/18 02/05/18 History [Cholecalciferol] Levetiracetam [Keppra] 500 mg PO QAM #60 tablet 12/28/16 12/31/18 02/05/18 Rx Levetiracetam [Keppra] 250 mg PO HS 02/05/18 12/31/18 02/04/18 History Albuterol Sulfate Inhaler 2 puff INH [id number] 10/10/18 12/31/18 Unknown History [Ventolin Hfa] Meloxicam [Mobic] 15 mg PO DAILY #20 tab 10/10/18 12/31/18 Unknown Rx Venlafaxine HCl [Effexor Xr] 150 mg DAILY 12/28/18 12/31/18 Unknown History Albuterol 2.5MG/Ipratrop 0.5MG 3 ml INH RTQ6H #120 neb 12/29/18 12/31/18 Unknown Rx [Duoneb] Prednisone See Taper PO DAILY #30 tab 12/29/18 12/31/18 Unknown Rx Levofloxacin [Levaquin] 500 mg PO DAILY #10 tab 12/31/18 12/31/18 Unknown Rx - History of Present Illness -Gen Adult Nature of Presenting Problems: 63 y/o female presents to ED with AMS onset just prior to arrival. EMS reports she called her sister and told her to call an ambulance. Pt was recently admitted for COPD exacerbation and called after discharge and told she had a UTI, but has not started her antibiotics yet. Pt is unable to inform staff why she is here. Pt complains of SOB and dizziness. Pt is alert and oriented x 3, but confused. Location of Pain/Injury: reports: none Pain Radiation: reports: no radiation Quality of Pain: reports: none Severity: reports: mild Onset/Duration: reports: just prior to arrival Timing: reports: still present Context/Activities at Onset: reports: none Modifying Factors: improves with: nothing Associated Symptoms: reports: dizziness, shortness of breath, other (AMS) Similar Symptoms Previously?: No Recently seen or treated by another doctor?: No Review of Systems - Adult - REVIEW OF SYSTEMS - ADULT Constitutional: reports: other (AMS). denies: chills, fever Eyes: reports: no symptoms reported Ears, Nose, Mouth & Throat: reports: no symptoms reported Cardiovascular: denies: chest pain, palpitations Respiratory: reports: shortness of breath. denies: cough Gastrointestinal: denies: abdominal pain, diarrhea, nausea, vomiting Genitourinary: reports: no symptoms reported Musculoskeletal: denies: back pain, joint pain Integumentary: reports: no symptoms reported Neurological: reports: dizziness/vertigo. denies: seizure Psychiatric: reports: no symptoms reported Endocrine: reports: no symptoms reported Hematologic/Lymphatic: reports: no symptoms reported Allergic/Immunologic: reports: no symptoms reported All Other Systems: Reviewed and Negative Past History - Adult - PAST MEDICAL HISTORY-ADULT Review of Records: reports: Old Records Reviewed, Nursing Assessment Review, Medications Reviewed Major Childhood Illnesses: reports: history unknown Cardiovascular: reports: blood clots, HTN, hyperlipidemia Respiratory: reports: COPD Gastrointestinal: reports: denies history Obstetrical/Gynecological: reports: denies history Genitourinary: reports: denies history Musculoskeletal: reports: denies history Neurological: reports: Seizures/Epilepsy Psychiatric: reports: anxiety, depression, psychiatric problems, other (panic) Endocrine/Immune: reports: denies history Other Conditions: reports: denies history - PRIOR SURGERIES/PROCEDURES Surgical/Procedure History: reports: reviewed, not pertinent, other (vascular surgery) - IMMUNIZATION STATUS Childhood Immunizations: See Nurse Assessment Flu Vaccine: See Nurse Assessment - FAMILY HISTORY Family History: reviewed, not pertinent - SOCIAL HISTORY Smoking: less than 1 pack/day Provider spent 3-5 mins advising pt. on dangers of tobacco.: Discussed manners to quit use, and f/u contacts for add'l counseling. Substance Use: none/never Alcohol Use Frequency: occasionally Living Situation: family Physical Exam-General - PHYSICAL EXAM-ADULT Initial Vital Signs Reviewed: Yes - CONSTITUTIONAL General Appearance: appears well, alert, no apparent distress, slow to respond, other (A&Ox3, answers inappropriately or does not respond, confused) - EYES Eyes: PERRL/EOMI, pink conjunctivae - HEAD, EARS, NOSE, MOUTH & THROAT HENMT: normocephalic/atraumatic, moist mucous membranes, normal ENT inspection - NECK Neck: non-tender, full range of motion - RESPIRATORY Respiratory: chest non-tender, lungs clear, decreased breath sounds - CARDIOVASCULAR Cardiovascular: normal peripheral pulses, regular rate, rhythm - GASTROINTESTINAL (ABDOMEN) Abdominal Exam: normal bowel sounds, non tender, soft - MUSCULOSKELETAL Back Exam: normal inspection, no CVA tenderness Extremity: normal range of motion, non-tender, normal gait - SKIN Integumentary: normal color, warm/dry - NEUROLOGIC Neurologic: grossly normal, other (A&Ox3, answers inappropriately or does not respond, slow to respond, confused) - PSYCHIATRIC Psych/Mental Status: normal mood/affect, other (A&Ox3, answers inappropriately or does not respond, slow to respond, confused) Progress - PLAN OF CARE/RESULTS Progress/Plan/Lab Results: Vital Signs - 8 hr 12/31/18 19:50 Temperature 98.4 F Pulse Rate 76 Respiratory Rate 18 Blood Pressure 177/93 O2 Sat by Pulse Oximetry 93 L Orders Category Date Time Status CHEST-1 VIEW [RAD] Stat Exams 12/31/18 20:[address] HEAD W/O CONTRAST [CT] Stat Exams 12/31/18 20:07 Ordered ABG [RESP] Stat Lab 12/31/18 20:08 Ordered BLOOD CULTURE [BLDCUL] Stat Lab 12/31/18 20:09 Ordered CBC WITH ELECTRONIC DIFF [HEME] Stat Lab 12/31/18 20:09 Ordered CK PROFILE [SP CHEM] Stat Lab 12/31/18 20:10 Ordered COMPREHENSIVE METABOLIC PANEL [CHEM] Stat Lab 12/31/18 20:09 Ordered D-DIMER [COAG] Stat Lab 12/31/18 20:09 Ordered LACTATE, PLASMA [CHEM] Stat Lab 12/31/18 20:09 Ordered PRO B-NATRIURETIC PEPTIDE Stat Lab 12/31/18 20:09 Ordered TROPONIN T Stat Lab 12/31/18 20:10 Ordered URINALYSIS W/POSS RFLX CULT [URINALYSIS] Stat Lab 12/31/18 20:09 Ordered Albuterol 2.5MG/Ipratrop 0.5MG [Duoneb (A & A)] Med 12/31/18 20:07 Once 3 ml INH NOW ONE Aerosol Treatments Routine Oth 12/31/18 20:08 Active Aerosol Treatments Stat Ot 12/31/18 20:08 Active Laboratory Tests 12/31/18 12/31/18 12/31/18 19:58 19:58 19:58 WBC 16.88 H RBC 4.83 Hgb 14.8 Hct 43.9 MCV 90.9 MCH 30.6 MCHC 33.7 RDW Std Deviation 13.4 Plt Count 356 MPV 9.9 Immature Gran % (Auto) 2.8 H Neut % (Auto) 83.8 H Lymph % (Auto) 9.6 L [place] % (Auto) 2.4 Eos % (Auto) 0.2 Baso % (Auto) 1.2 H Immature Gran # (Auto) 0.47 H Neut # (Auto) 14.15 H Lymph # (Auto) 1.62 [place] # (Auto) 0.40 Eos # (Auto) 0.04 Baso # (Auto) 0.20 D-Dimer, Quantitative 0.42 Specimen Type Sample Site pH pCO2 pO2 HCO3 Base Excess Oxyhemoglobin ABG O2 Sat (Calculated) ABG O2 Saturation ABG Carboxyhemoglobin ABG Methemoglobin Vinnie Test A-a O2 Difference Total Hemoglobin Lactate Liter Flow Blood Gas Modality FiO2 % Sodium 141 Potassium 4.2 Chloride 94 L Carbon Dioxide 36 H Anion Gap 11 BUN 7 L Creatinine 0.5 Estimated GFR/1.73 m2 > 60 BUN/Creatinine Ratio 14 Glucose 104 POC Glucose Calculated Osmolality 280 Calcium 9.6 Total Bilirubin 0.21 AST 24 ALT 25 Alkaline Phosphatase 80 Creatine Kinase Creatine Kinase Index CK-MB (CK-2) Troponin T [id number] Pept Total Protein 7.8 Albumin 4.2 Globulin 3.6 Albumin/Globulin Ratio 1.2 Plasma Lactate Urine Source Urine Color Urine Turbidity Urine pH Ur Specific [place]ickman Urine Protein Ur Glucose (Stick) Ur Ketones (Stick) Urine Blood Urine Nitrite Urine Bilirubin Urobilinogen Dipstick Urine Leukocytes Urine WBC (Auto) Urine RBC (Auto) U Epithel Cells (Auto) Urine Bacteria (Auto) 12/31/18 12/31/18 12/31/18 19:58 19:58 19:58 WBC RBC Hgb Hct MCV MCH MCHC RDW Std Deviation Plt Count MPV Immature Gran % (Auto) Neut % (Auto) Lymph % (Auto) [place] % (Auto) Eos % (Auto) Baso % (Auto) Immature Gran # (Auto) Neut # (Auto) Lymph # (Auto) [place] # (Auto) Eos # (Auto) Baso # (Auto) D-Dimer, Quantitative Specimen Type Sample Site pH pCO2 pO2 HCO3 Base Excess Oxyhemoglobin ABG O2 Sat (Calculated) ABG O2 Saturation ABG Carboxyhemoglobin ABG Methemoglobin Vinnie Test A-a O2 Difference Total Hemoglobin Lactate Liter Flow Blood Gas Modality FiO2 % Sodium Potassium Chloride Carbon Dioxide Anion Gap BUN Creatinine Estimated GFR/1.73 m2 BUN/Creatinine Ratio Glucose POC Glucose Calculated Osmolality Calcium Total Bilirubin AST ALT Alkaline Phosphatase Creatine Kinase Creatine Kinase Index CK-MB (CK-2) Troponin T < 0.010 [id number] Pept 168 Total Protein Albumin Globulin Albumin/Globulin Ratio Plasma Lactate 1.4 Urine Source Urine Color Urine Turbidity Urine pH Ur Specific [place] Urine Protein Ur Glucose (Stick) Ur Ketones (Stick) Urine Blood Urine Nitrite Urine Bilirubin Urobilinogen Dipstick Urine Leukocytes Urine WBC (Auto) Urine RBC (Auto) U Epithel Cells (Auto) Urine Bacteria (Auto) 12/31/18 12/31/18 12/31/18 19:58 20:05 20:14 WBC RBC Hgb Hct MCV MCH MCHC RDW Std Deviation Plt Count MPV Immature Gran % (Auto) Neut % (Auto) Lymph % (Auto) [place] % (Auto) Eos % (Auto) Baso % (Auto) Immature Gran # (Auto) Neut # (Auto) Lymph # (Auto) [place] # (Auto) Eos # (Auto) Baso # (Auto) D-Dimer, Quantitative Specimen Type Sample Site pH pCO2 pO2 HCO3 Base Excess Oxyhemoglobin ABG O2 Sat (Calculated) ABG O2 Saturation ABG Carboxyhemoglobin ABG Methemoglobin Vinnie Test A-a O2 Difference Total Hemoglobin Lactate Liter Flow Blood Gas Modality FiO2 % Sodium Potassium Chloride Carbon Dioxide Anion Gap BUN Creatinine Estimated GFR/1.73 m2 BUN/Creatinine Ratio Glucose POC Glucose 121 H D Calculated Osmolality Calcium Total Bilirubin AST ALT Alkaline Phosphatase Creatine Kinase 317 H Creatine Kinase Index 2.9 H CK-MB (CK-2) 9.17 H Troponin T [id number] Pept Total Protein Albumin Globulin Albumin/Globulin Ratio Plasma Lactate Urine Source CATH Urine Color STRAW Urine Turbidity CLEAR Urine pH 7.0 Ur Specific [place]man 1.000 Urine Protein NEGATIVE Ur Glucose (Stick) NEGATIVE Ur Ketones (Stick) NEGATIVE Urine Blood NEGATIVE Urine Nitrite NEGATIVE Urine Bilirubin NEGATIVE Urobilinogen Dipstick NORMAL Urine Leukocytes NEGATIVE Urine WBC (Auto) <10 Urine RBC (Auto) <10 U Epithel Cells (Auto) <10 Urine Bacteria (Auto) NEGATIVE 12/31/18 20:18 WBC RBC Hgb Hct MCV MCH MCHC RDW Std Deviation Plt Count MPV Immature Gran % (Auto) Neut % (Auto) Lymph % (Auto) [place] % (Auto) Eos % (Auto) Baso % (Auto) Immature Gran # (Auto) Neut # (Auto) Lymph # (Auto) [place] # (Auto) Eos # (Auto) Baso # (Auto) D-Dimer, Quantitative Specimen Type ARTERIAL Sample Site L RADIAL pH 7.41 pCO2 59 H* pO2 60 HCO3 32.7 H Base Excess 10.3 H Oxyhemoglobin 86.4 L* ABG O2 Sat (Calculated) 17.1 ABG O2 Saturation 95.8 ABG Carboxyhemoglobin 8.60 H* ABG Methemoglobin 1.1 Vinnie Test YES A-a O2 Difference 94.0 Total Hemoglobin 14.1 Lactate 1.10 Liter Flow 3.0 Blood Gas Modality CANNULA FiO2 % 32.0 Sodium Potassium Chloride Carbon Dioxide Anion Gap BUN Creatinine Estimated GFR/1.73 m2 BUN/Creatinine Ratio Glucose POC Glucose Calculated Osmolality Calcium Total Bilirubin AST ALT Alkaline Phosphatase Creatine Kinase Creatine Kinase Index CK-MB (CK-2) Troponin T [id number] Pept Total Protein Albumin Globulin Albumin/Globulin Ratio Plasma Lactate Urine Source Urine Color Urine Turbidity Urine pH Ur Specific Hickman Urine Protein Ur Glucose (Stick) Ur Ketones (Stick) Urine Blood Urine Nitrite Urine Bilirubin Urobilinogen Dipstick Urine Leukocytes Urine WBC (Auto) Urine RBC (Auto) U Epithel Cells (Auto) Urine Bacteria (Auto) Result Diagrams: 12/31/18 19:58 12/31/18 19:58 - EKG 1 Time of EKG reading by physician:: 20:01 EKG Read and Signed by:: Arpan Joseph EKG Interpretation (*Must complete 3 of following elements*): Abnormal Rate: 72 Rhythm: NSR [place]: normal QRS: RBB, other (inferior infarct; cannot rule out anterior infarct) RI Interval: normal ST Wave: normal - XRAY 1 XRAY Study: Chest Impression: Abnormal (FINDINGS: The lungs are well expanded. The heart is enlar ged. The vessels are distended. There are no infiltrates. No effusion identified. IMPRESSION: Cardiomegaly with pulmonary edema Electronically signed by Sergio Lennon 12/31/2018 8:27 PM [id number]) - CT/MRI 1 CT Study: Head Impression: Normal ( FINDINGS: No parenchymal hemorrhage. No epidural or subdural hematoma. No subarachnoid hemorrhage. There are chronic microvascular ischemic changes. No mass identified on this noncontrasted exam. No hydrocephalus. No sinus opacification. IMPRESSION: 1.No hemorrhage 2.Chronic microvascular ischemic changes This exam was performed using automated exposur e control, adjustment of mA or kV according to patient size, and/or use of iterative reconstruction technique. Electronically signed by Sergio Lennon 12/31/2018 8:49 PM) - CONSULTS/PCP/HOSPITALIST Notification #1 *Consult/PCP/Hospitalist*: Dr. Hope Time Discussed: 22:29 Reason/Comments: AMS Consult Disposition: Admit Departure - Departure Date of Disposition Decision: 12/31/18 Time of Disposition Decision: 22:29 DIAGNOSIS: Tobacco abuse disorder Altered mental status Qualifiers: Altered mental status type: unspecified Qualified Code(s): R41.82 - Altered mental status, unspecified Disposition: ADMITTED INPATIENT 09 Certified Medical Emergency: Emergent Condition: Stable - Critical Care Note This patient required my direct & personal management of CC.: No Attestation - Physician/ JONO Attestation Patient care was provided by Advanced Practice Provider:: No The physician spent face to face time with patient:: Yes Advanced Practice Provider documentation review:: Supervising physician onsite and consulted in the evaluation and care of this patient. The physician did have a face to face encounter with the patient. This chart was documented by the indicated scribe, (Leonila Peñaloza Scribe) and accurately reflects the services I performed and decisions made by , Arpan Joseph MD, as attested by the provider's signature.
[2018-12-31 21:17] LABS: AGAP 11; ALB/GLOB RATIO 1.2; ALBUMIN 4.2 g/dL (3.5-5.0); ALKALINE PHOSPHATASE 80 U/L (32-104); BUN 7 mg/dL (8-22); CALCIUM 9.6 mg/dL (8.8-10.2); CHLORIDE 94 mmol/L (98-107); COSMO 280; CREATININE 0.5 mg/dL (0.5-0.9); ESTIMATED GFR > 60; GLUCOSE 104 mg/dL (70-104); GOT 24 U/L (10-30); GPT 25 U/L (10-36); POTASSIUM 4.2 mmol/L (3.5-5.1); SODIUM 141 mmol/L (136-145); TCO2 36 mmol/L (25-35); TOTAL BILIRUBIN 0.21 mg/dL (0.20-1.00); TOTAL PROTEIN 7.8 g/dL (6.3-8.3)
[2018-12-31 21:32] LABS: CK INDEX 2.9 (0.0-2.5); CK-MB 9.17 ng/mL (0.0-5.0)
[2018-12-31 22:17] LABS: UR AMPHETAMINES QUAL NONE DETECTED (NONE DETECT); UR BARBITUATES QUAL NONE DETECTED (NONE DETECT); UR BENZODIAZEPIN QUAL NONE DETECTED (NONE DETECT); UR CANNABINOIDS QUAL NONE DETECTED (NONE DETECT); UR COCAINE QUAL NONE DETECTED (NONE DETECT); UR METHADONE QUAL NONE DETECTED (NONE DETECT); UR OPIATES QUAL NONE DETECTED (NONE DETECT); UR OXYCODONE QUAL NONE DETECTED (NONE DETECT); UR PCP QUAL NONE DETECTED (NONE DETECT)
[2018-12-31] MEDS ORDERED: LEVAQUIN 500 MG/D5W 500 MG/100 ML IVPB IV ONE (22:28)
[2019-01-01] MEDS ORDERED: SOLU-MEDROL IV SCH ×2 (00:11→09:00)
--- NOTE | 2019-01-01 01:56 | HISTORY AND PHYSICAL ---
PRIMARY CARE PHYSICIAN: Jose Alfredo Ross MD CHIEF COMPLAINT: Altered mental status and shortness of breath. HISTORY OF PRESENTING ILLNESS: A 63-year-old female with a history of COPD on home oxygen, seizure disorder, hypertension, anxiety, who had just recently been discharged from [facility] after treatment for COPD, presented to emergency department at [facility] 2 days later with complaint of having shortness of breath. Apparently, patient had called her sister earlier and told her to call the ambulance and prior to arrival she seemed confused as per ER physician. At time my examination she was oriented. She denied any headache, fever, chills, chest pain, hemoptysis, or any weight changes. States that she was having shortness of breath. PAST MEDICAL HISTORY: Includes COPD on home oxygen, seizures, hypertension, anxiety. PAST SURGICAL HISTORY: Left arm surgery. ALLERGIES: Amoxicillin, penicillin, cephalexin. CURRENT MEDICATIONS: 1. Albuterol nebs. 2. Xanax 0.5 mg p.o. t.i.d. 3. Keppra 250 mg p.o. at bedtime and 500 mg p.o. q.a.m. 4. Levofloxacin 500 mg p.o. daily. 5. Prednisone taper. 6. Effexor 150 mg p.o. daily. SOCIAL HISTORY: 40+ pack years history of smoking. Denies any history of alcohol or illicit drug use. FAMILY HISTORY: No history of coronary disease. REVIEW OF SYSTEMS: Fourteen point review of systems is as in HPI. Other systems negative. PHYSICAL EXAMINATION: GENERAL: Cooperative, friendly female. She is resting more comfortably now. VITAL SIGNS: Temperature 98.4 degrees, pulse 76, respirations 18, blood pressure 177/93. She is saturating 93% on 2 L. HEENT: Atraumatic, normocephalic. Extraocular movements intact. PERRLA. NECK: No masses. CHEST: Scattered wheezes. CARDIOVASCULAR: Regular rate and rhythm. ABDOMEN: Soft, positive bowel sounds. EXTREMITIES: No edema. NEUROLOGIC: She is awake, alert, oriented x3. : No bladder distention. SKIN: Warm. LABORATORIES AND STUDIES: WBC 16.88, hemoglobin 14.8, hematocrit 43.9, platelets 356,000. ABG shows pH of 7.41, pCO2 59. Sodium 141, potassium 4.2, chloride 94, CO2 is 36 BUN is 7, creatinine 0.5, glucose 104. CT of the head no hemorrhage. Chronic microvascular changes. Chest x-ray shows cardiomegaly. ASSESSMENT: A 63-year-old female with a history of chronic obstructive pulmonary disease on home oxygen, seizure disorder, hypertension and anxiety, who was treated for Chronic obstructive pulmonary disease exacerbation several days ago and was just discharged 2 days prior to coming to [facility]. She apparently was confused as per ER physician, however, at time of my examination she was oriented x3. She states that she was short of breath and that is why she had come to the emergency department. Due to her presenting symptoms, we will place her for observation for further evaluation management. 1. Altered mental status, unclear. 2. Mild chronic obstructive pulmonary disease exacerbation. 3. Seizure disorder. 4. Hypertension. 5. Anxiety disorder. PLAN: 1. We will admit patient to medical floor with telemetry. 2. Continue with neuro checks. 3. Continue with DuoNebs, IV antibiotics, and IV Solu-Medrol. 4. Put patient on seizure precautions. 5. We will monitor blood pressure closely. 6. We will restart other home medications. 7. Put patient on DVT prophylaxis, SCDs. 8. We will continue to follow and reassess. Make further recommendation based on patient's clinical course. cc: Wander Hope MD MTDD
[2019-01-01] MEDS: DUONEB (A & A) INH SCH ×7 (03:54→23:33)
[2019-01-01 07:50] LABS: BASO# 0.08 X1000 (0.0-0.2); BASO% 0.5 % (0.0-0.8); HEMATOCRIT 42.2 % (37.0-47.0); HEMOGLOBIN 13.9 g/dL (12.0-16.0); IMM GRAN# 0.52 X1000 (0.0-0.04); IMM GRAN% 3.5 % (0.0-0.5); LYMPH# 1.71 X1000 (1.2-3.4); LYMPH% 11.4 % (20.5-51.1); MCHC 32.9 g/dL (33-37); MCV 91.1 FL (81-99); MPV 9.8 FL (7.4-10.4); NEUT# 12.37 X1000 (1.4-6.5); NEUT% 82.6 % (42.2-75.2); PLT 331 X1000 (130-400); RBC 4.63 XMIL (4.2-5.4); RDW 13.1 % (11.5-14.5); WBC 14.98 X1000 (4.8-10.8)
--- NOTE | 2019-01-01 07:58 | EKG Report ---
Test Performed on : 12/31/2018 8:01:21 PM Test Reason : ED. NO EKG ORDER FOR MUSE Blood Pressure : / mmHG Vent. Rate : 072 BPM Atrial Rate : 072 BPM P-R Int : 144 ms QRS Dur : 148 ms QT Int : 426 ms P-R-T Axes : 031 079 028 degrees QTc Int : 466 ms Normal sinus rhythm. Right bundle branch block Inferior infarct (cited on or before 01-FEB-2015) Cannot rule out Anterior infarct , age undetermined Abnormal ECG When compared with ECG of 27-DEC-2018 15:24, (Unconfirmed) Minimal criteria for Anterior infarct are now present Unconfirmed Result
[2019-01-01 08:13] LABS: AGAP 7; BUN 10 mg/dL (8-22); CALCIUM 8.3 mg/dL (8.8-10.2); CHLORIDE 97 mmol/L (98-107); COSMO 276; CREATININE 0.4 mg/dL (0.5-0.9); ESTIMATED GFR > 60; GLUCOSE 150 mg/dL (70-104); POTASSIUM 4.3 mmol/L (3.5-5.1); SODIUM 137 mmol/L (136-145); TCO2 33 mmol/L (25-35)
[2019-01-01 08:14] LABS: ALLEN TEST YES; BE 9.8 mmoll (-3.0-3.0); BLOOD TYPE ARTERIAL; HCO3-(ACT) 32.4 mmoll (20.0-26.0); METHB 1.1 % (0.0-1.5); O2(CT) 18.4 mL/dL (15.0-23.0); O2HB 91.1 % (95.0-99.0); PO2(98.6) 58 mmHg (60-100); SAMPLE BLOOD; SAO2 95.5 % (95.0-100.0); THB 14.4 g/dL (11.5-17.4); pH(98.6) 7.44 (7.35-7.45)
[2019-01-01 08:18] LABS: MODALITY CANNULA; PCO2(98.6) 53 mmHg (35-45)
[2019-01-01 08:22] LABS: BANDS 1 % (0-1); LARGE PLATELETS 1+; LYMPHS 13 % (21-51); MONO 2 % (1-9); SEGS 80 % (42-75)
[2019-01-01 08:27] LABS: HEMOGLOBIN A1C 5.4 % (4.8-6.0)
[2019-01-01] MEDS ORDERED: KEPPRA PO SCH ×2 (09:00→21:00)
[2019-01-01] MEDS: MOBIC PO SCH (10:21)
[2019-01-01] MEDS: EFFEXOR XR PO SCH (10:25)
--- NOTE | 2019-01-01 15:53 | Diag Imaging Result Doc PS360 ---
MRI BRAIN W/O CONTRAST - 01/01/2019 INDICATION: encephalopathy COMPARISON: Head CT 12/31/2018 FINDINGS: There is no area of restricted diffusion. There is severely advanced hyperintensity compatible with gliosis throughout the cerebral white matter and severely affecting the eda as well. There are several scattered lacunae in the basal ganglia and thalami bilaterally. No intracranial mass or hemorrhage. Midline structures are unremarkable. There is mild cerebral atrophy. IMPRESSION: Advanced chronic microvascular disease of the cerebral and pontine white matter. Several old lacunae bilaterally. Electronically signed by Luis Elizondo 01/01/2019 3:51 PM
--- NOTE | 2019-01-01 17:37 | CONSULTATION ---
DATE OF CONSULTATION: 01/01/2019 HISTORY OF PRESENT ILLNESS: Ms. Moffett is 63 years old and she is known to our service. I have reviewed the medical records this admission. History provided by the patient to me this afternoon is that she felt cold and asked her sister to call the ambulance for that reason. Admission records indicate there was altered mental state. There was apparently report from family that patient seemed confused. I do not have any first-hand history or detailed description. She had been discharged from [place] several days ago and discharge summary reported "fairly odd affect" noted there. There have been some reported seizures in the past. To the best of my knowledge, these have generally been associated with benzodiazepine withdrawal. She told me today that she continues taking her Xanax as prescribed and she is certain she has not run out. PDMP shows filling alprazolam 0.5 mg, #90 approximately every month and her home medicine list shows alprazolam 0.5 mg t.i.d. However, urine drug screen was negative for benzodiazepine this admission. Computer record shows urine positive for benzodiazepine 12/23/2016 and on other more remote checks. Ms. Moffett told me the only recent medication change was addition of Levaquin within the last week or so. At one point, she answered "yes" when asked if she had taken Levaquin before, and she also answered "yes" when asked her if Levaquin had been associated with seizure in the past. I cannot find documentation of previous Levaquin use or Levaquin associated seizure in the computer records here. LABORATORY DATA: This admission includes urine drug screen negative for all, blood sugars 104, 121, 150. Initial WBC 17,000, later 15,000. CK was 317. Noncontrast CT shows scattered chronic changes. On my view, there are a few old subcortical lacunes but nothing that looks recent. Brain MRI this admission done without contrast shows fairly advanced chronic micro ischemic changes but nothing acute and no bleeding. Previous EEGs have been negative, last in 2017. MEDICATIONS: She told me she takes levetiracetam 500 mg 1 tablet b.i.d. The admission note reports her home medicines were levetiracetam 500 mg a.m./[address] Dodge saw her for Neurology here and recommended increasing levetiracetam dose from 500 mg b.i.d. to 500 mg a.m./ 750 mg p.m. a few years ago. PHYSICAL EXAMINATION: On my exam, Ms. Moffett is awake, alert, intermittently attentive. She answered some questions quickly and appropriately and at other times seemed inattentive. I could always capture her attention by calling her name firmly and then she would answer a few questions appropriately before her attention was lost. She identified the hospital. She was oriented to the correct month and year. She did not discuss recent news. She was not attentive to usual bedside cognitive testing. Speech is not significantly dysarthric. Language function appears intact. Strength is normal in the arms and legs. Limb tone is symmetric. She did well on finger- to-nose testing bilaterally. Her attention fluctuated, but she seemed to report symmetric pinprick and light touch appreciation over the feet, legs and hands. Proprioception testing was fraught with inconsistencies attributed to her inattention and I do not think that proprioception testing is valid. I did not test her gait. Reflexes are absent at the ankles and 1+ at the wrists bilaterally. Head and neck are unremarkable. Visual chapin are full tested grossly by confrontational finger counting. Facial motility is symmetric. Gag is intact. Tongue is midline. She can hear. Shoulder shrug is equal. There is no meningismus. IMPRESSION: 1. Fluctuating attention. I think some of this may be her baseline. We have had concern before for cognitive impairment which may have been attributed to previous ethanol use and/or chronic benzodiazepine use. If she does have a baseline cognitive impairment, that would predispose her to more prominent encephalopathy features with any toxic or metabolic disturbance. 2. She has had some seizures in the past and there could be subclinical seizure or unwitnessed and unrecognized partial seizure to account for some of her apparent mental changes. I think it would be reasonable to get a prolonged EEG recording when practical. 3. She has clearly had some seizures associated with benzodiazepine withdrawal in the past. She reports no recent missed doses, but urine drug screen is negative now. I wonder about benzodiazepine withdrawal and possible seizure prompting this admission. 4. There is report of previous suicidal ideation, possibly attempts. She reports none of those thoughts currently. Still, we might consider psychiatry evaluation when practical. 5. Levaquin on board. Levaquin has been associated with seizure but may or may not be playing a role with her current appearance. 6. Brain imaging evidence of advanced micro ischemic change. This is consistent with her cigarette smoking and concern that she may not always be compliant with her medications. 7. I believe that she has not been treated recently for hypertension, but blood pressures here have consistently been elevated. I will defer decision on blood pressure management to attending, but, from neurology standpoint, I do not see any neurologic contraindication to treating blood pressure aggressively. 8. She has some elevated blood sugars, at least some glucose intolerance and I believe she may be taking steroids frequently. Again, will defer to attending on management of blood sugar. No other suggestion right now from Neurology standpoint. I will check on availability of prolonged EEG while she is here. I would continue levetiracetam and I will make the dose 500 mg b.i.d. for simplicity while she is here. Thanks for asking Neurology to see Ms. Moffett. cc: MD YUMIKO Dsouza III
--- NOTE | 2019-01-01 18:39 | PROGRESS NOTE ---
DATE: 01/01/2019 SUBJECTIVE: The patient is resting comfortably in bed. Her family is present at the bedside. OBJECTIVE: Vital Signs: Temperature 98.4 degrees, blood pressure 185/60, heart rate 90, respirations 18, O2 saturation 97% on 2.5 L nasal cannula. General: This is a chronically ill- appearing elderly female lying in bed in no acute distress. Heart: S1, S2 normal. Lungs: Equal air entry bilaterally. No crackles, no rales. Abdomen: Positive bowel sounds. Soft, nontender, nondistended. Extremities: No edema, no cyanosis. Neuro: The patient is awake and oriented to self and place. LABS: Sodium 137, potassium 4.3, chloride 97, CO2 33, BUN 10, creatinine 0.4, glucose 150. A1c 5.4. White blood cell count 14, hemoglobin 13, hematocrit 42, platelets 331,000. MRI of the brain reveals several old lacunar infarcts bilaterally. Chronic microvascular disease. ASSESSMENT AND PLAN: 1. Encephalopathy. The patient has seizure disorder and she is on Keppra. She is also on Xanax that she takes 3 times a day. Patient has been assessed by the neurologist and an EEG has been ordered for tomorrow. Will continue to monitor the patient's mental status closely. 2. Seizure disorder. Continue on Keppra. 3. Chronic obstructive pulmonary disease exacerbation. Will decrease the steroid dosage, continue with bronchodilator therapy and antibiotic therapy. 4. Uncontrolled hypertension. Will start the patient on Coreg and Norvasc and monitor the patient's response. 5. Tobacco dependence. The patient has been counseled about smoking cessation. 6. History of alcohol abuse. Will monitor the patient closely for withdrawal. 7. Deep vein thrombosis prophylaxis. Will start the patient on Lovenox. cc: Mary Raines MD MTDD
[2019-01-01] MEDS: SOLU-MEDROL IV SCH (18:48)
[2019-01-01] MEDS: DOXYCYCLINE 100 MG in NS 250 ML IV SCH (18:48)
[2019-01-01] MEDS: NORVASC PO SCH (21:07)
[2019-01-01] MEDS: KEPPRA PO SCH (21:08)
[2019-01-01] MEDS: COREG PO SCH (21:08)
[2019-01-01] MEDS: LOVENOX SUBQ SCH (21:08)
[2019-01-01] MEDS ORDERED: LEVAQUIN 250 MG/D5W 250 MG/50 ML IVPB IV SCH (22:00)
[2019-01-02] MEDS: XANAX PO PRN ×2 (00:04→08:19)
[2019-01-02] MEDS: DUONEB (A & A) INH SCH ×6 (03:37→23:08)
[2019-01-02] MEDS: SOLU-MEDROL IV SCH ×2 (03:56→11:21)
[2019-01-02] MEDS: DOXYCYCLINE 100 MG in NS 250 ML IV SCH ×2 (06:09→17:58)
[2019-01-02] MEDS: PRILOSEC PO SCH (06:10)
[2019-01-02 08:11] LABS: HEMATOCRIT 40.8 % (37.0-47.0); HEMOGLOBIN 13.4 g/dL (12.0-16.0); MCH 30.5 PG (27-31); MCHC 32.8 g/dL (33-37); MCV 92.7 FL (81-99); RBC 4.4 XMIL (4.2-5.4); RDW 13.4 % (11.5-14.5); WBC 19.35 X1000 (4.8-10.8)
[2019-01-02] MEDS: MOBIC PO SCH (08:11)
[2019-01-02] MEDS: KEPPRA PO SCH ×2 (08:14→20:17)
[2019-01-02] MEDS: COREG PO SCH ×2 (08:14→20:17)
[2019-01-02] MEDS: NORVASC PO SCH ×2 (08:14→20:17)
[2019-01-02 08:29] LABS: AGAP 7; BUN 15 mg/dL (8-22); CALCIUM 8.6 mg/dL (8.8-10.2); CHLORIDE 98 mmol/L (98-107); COSMO 282; CREATININE 0.5 mg/dL (0.5-0.9); ESTIMATED GFR > 60; GLUCOSE 138 mg/dL (70-104); POTASSIUM 4.9 mmol/L (3.5-5.1); SODIUM 140 mmol/L (136-145); TCO2 35 mmol/L (25-35)
--- NOTE | 2019-01-02 09:15 | CONSULTATION ---
DATE OF CONSULTATION: 01/01/2019 REQUESTING PROVIDER: DR. Mary Raines. REASON FOR CONSULTATION: COPD exacerbation. HISTORY OF PRESENT ILLNESS: This is a 63-year-old female with a medical history of COPD with ongoing tobacco abuse, anxiety, seizure, and hypertension. She had been recently admitted from 12/27/2018 to 12/29/2018 with acute hypoxic respiratory failure secondary to COPD exacerbation. She presented to the ER yesterday via EMS with acute altered mental status. Initial workup in the ER did not reveal any etiology. Head CT was negative for any acute change but chronic microvascular ischemic changes. Chest x-ray did show pulmonary edema. She also had leukocytosis, hypercapnia, and elevated creatine kinase and CK-MB. She has been admitted to the medical floor for further evaluation and management. The patient currently is standing by the window with no acute distress noted. She appears alert and oriented to person and place but not to situation or time. She apparently has trouble moving her left arm at times, but strength in both hands is equal. She did have left arm surgery done before. She has no facial droop. She once asked for some drinks, but after pushing the call light, she cannot tell what she wants. She states that she came to the hospital for speech, but she cannot tell in detail. There is no family at the bedside. All information is obtained from the E-chart. PAST MEDICAL AND SURGICAL HISTORY: 1. COPD with home oxygen. 2. Ongoing tobacco abuse. 3. Anxiety. 4. Seizure. 5. Left arm surgery. SOCIAL HISTORY: She lives alone at home. She smokes half a pack of cigarettes per day. She has been smoking for over 40 years. She has no alcohol or illicit drug use. FAMILY HISTORY: Unknown. ALLERGIES: Amoxicillin, penicillins, cephalexin. REVIEW OF SYSTEMS: Difficult to be obtained. PHYSICAL EXAMINATION: Vital Signs: Temperature 98.2, blood pressure 171/58, pulse 78, respiratory rate 20, oxygen saturation 94% on nasal cannula at 2 L. General: Chronically ill appearing, standing by window in no acute distress. HEENT: Atraumatic. Trachea midline. Mucosa pink and moist. No facial droop. Respiratory: Even and unlabored. Symmetrical excursion. Clear to auscultation, but has diminished breathing sounds bibasilarly. Cardiovascular: Regular rate and rhythm. Gastrointestinal: Bowel sounds normoactive in all 4 quadrants. Soft, nontender, nondistended. Extremities: No pedal edema. No cyanosis. No clubbing. Neurologic: Alert and oriented times to person and place but not time or situation. LAB DATA: White blood cell 14.98, hemoglobin 13.9, hematocrit 42.2 platelets 331. Sodium 137, potassium 4.3, chloride 97, carbon dioxide 33, BUN 10, creatinine 0.4, glucose 150. ABG: pH of 7.44, pCO2 of 53, PO2 of 58, HCO3 of 32.4, base excess of 9.8, and oxyhemoglobin of 91.1. ASSESSMENT: This is a 63-year-old female with a medical history of COPD with ongoing tobacco abuse, anxiety, seizure, and hypertension. She has been admitted to the medical floor with acute altered mental status and acute on chronic hypoxemic hypercapnic respiratory failure and mild COPD exacerbation. 1. Acute on chronic hypoxemic and hypercapnic respiratory failure . 2. Acute altered mental status. 3. Chronic obstructive pulmonary disease. 4. Tobacco abuse. PLAN: 1. Continue supplemental oxygen. Consider BiPAP if needed. 2. Continue antibiotics, steroids, and bronchodilators. 3. Follow up with ABG, CBC, BMP and blood culture. 4. Dr. Vincent is on board. 5. Highly recommend patient to quit smoking. 6. Continue gastrointestinal and deep venous thrombosis prophylaxis. 7. Further recommendations pending hospital course. Thank you for the courtesy of this consult. Dictated by ALLIE Hedrick for Demetrio Shrestha MD cc: ALLIE Hedrick MD [facility]
[2019-01-02] MEDS: EFFEXOR XR PO SCH (11:21)
--- NOTE | 2019-01-02 16:06 | PROGRESS NOTE ---
DATE: 01/02/2019 SUBJECTIVE: Ms. Moffett is awake and alert. I do not believe she has had clinically recognized seizure today. She is tolerating levetiracetam 500 mg b.i.d. Alprazolam 0.5 mg has been given twice today. We have a 24 hour EEG in progress. I reviewed some EEG segments which showed mostly muscle and movement artifact, symmetric generalized slowing in the background, nothing remarkable, and no epileptiform discharge or seizure. Full report will follow completion of the study tomorrow. I do not have any new thoughts or new suggestions from Neurology standpoint right now. Thanks for asking us to see Ms. Moffett. cc: MD YUMIKO Dsouza III
--- NOTE | 2019-01-02 18:35 | PROGRESS NOTE ---
DATE: 01/02/2019 SUBJECTIVE: The patient is resting comfortably. She is currently undergoing a 24 hour EEG. No acute events noted overnight. OBJECTIVE: Vital Signs: Temperature 98.5 degrees, blood pressure 136/85, heart rate 76, respirations 18, O2 saturation 91% on 2 L nasal cannula. General: This is a chronically ill- appearing female lying in bed in no acute distress. Heart: S1, S2 normal. Regular rate and rhythm. Lungs: Equal air entry bilaterally. No wheezing. No rales. No rhonchi. Abdomen: Positive bowel sounds. Soft, nontender, nondistended. Extremities: No edema, no cyanosis. Neurologic: The patient is awake and alert. LABS: White blood cell count 19, hemoglobin 13, hematocrit 40. Sodium 140, BUN 15, creatinine 0.5, glucose 138. ASSESSMENT AND PLAN: 1. Encephalopathy. Improved. 2. Seizure disorder. The patient is currently on Keppra. The patient is currently undergoing a continuous electroencephalogram. Further recommendations to follow from the neurologist. 3. Chronic obstructive pulmonary disease exacerbation. Improved. Will transition the patient to prednisone. Continue with antibiotic and bronchodilator therapy. 4. Hypertension. Continue on the current antihypertensive regimen. 5. Tobacco dependence. The patient has been counseled about smoking cessation. 6. Leukocytosis. This is likely steroid induced. We will monitor closely. 7. Deep vein thrombosis prophylaxis. Continue on Lovenox. cc: Mary Raines MD MTD
[2019-01-02] MEDS: LOVENOX SUBQ SCH (20:17)
[2019-01-02] MEDS: MIRALAX PO SCH ×2 (20:17→20:33)
[2019-01-02] MEDS: LACTULOSE PO SCH (20:17)
[2019-01-03] MEDS: XANAX PO PRN ×2 (00:16→20:19)
[2019-01-03] MEDS: DUONEB (A & A) INH SCH ×7 (03:48→23:45)
[2019-01-03 04:20] LABS: ALLEN TEST YES; BLOOD TYPE ARTERIAL; HCO3-(ACT) 30.9 mmoll (20.0-26.0); METHB 0.9 % (0.0-1.5); O2(CT) 17.2 mL/dL (15.0-23.0); PCO2(98.6) 48 mmHg (35-45); PO2(98.6) 54 mmHg (60-100); SAMPLE BLOOD; SAO2 90.4 % (95.0-100.0); THB 13.9 g/dL (11.5-17.4); pH(98.6) 7.45 (7.35-7.45)
[2019-01-03 04:22] LABS: MODALITY CANNULA; O2HB 87.9 % (95.0-99.0)
[2019-01-03] MEDS: PRILOSEC PO SCH (07:00)
--- NOTE | 2019-01-03 07:13 | Diag Imaging Result Doc PS360 ---
EXAM: CHEST-1 VIEW 01/03/2019 HISTORY: SOB TECHNIQUE: AP portable at 0623 COMMENT: There is cardiomegaly. There is increased pulmonary vascularity. There is ill-defined opacity in the left costophrenic angle and the right cardiophrenic angle which may indicate atelectasis and/or pneumonia. There may be mild interstitial pulmonary edema. The basilar opacities were not present on 12/31/2018. IMPRESSION: Mild pulmonary edema and bibasilar atelectasis versus pneumonia. Electronically signed by Jimmie Robles 01/03/2019 7:11 AM
[2019-01-03 07:40] LABS: HEMOGLOBIN 13.9 g/dL (12.0-16.0); MCH 30.3 PG (27-31); MCHC 33.1 g/dL (33-37); MCV 91.5 FL (81-99); MPV 9.5 FL (7.4-10.4); RBC 4.59 XMIL (4.2-5.4); RDW 13.4 % (11.5-14.5)
[2019-01-03 08:00] LABS: AGAP 4; BUN 18 mg/dL (8-22); CALCIUM 8.3 mg/dL (8.8-10.2); CHLORIDE 92 mmol/L (98-107); COSMO 268; CREATININE 0.5 mg/dL (0.5-0.9); ESTIMATED GFR > 60; GLUCOSE 93 mg/dL (70-104); POTASSIUM 4.2 mmol/L (3.5-5.1); SODIUM 133 mmol/L (136-145); TCO2 37 mmol/L (25-35)
[2019-01-03] MEDS: PREDNISONE PO SCH (08:46)
[2019-01-03] MEDS: NORVASC PO SCH ×2 (08:46→20:13)
[2019-01-03] MEDS: KEPPRA PO SCH ×2 (08:46→20:13)
[2019-01-03] MEDS: EFFEXOR XR PO SCH (08:46)
[2019-01-03] MEDS: MOBIC PO SCH (08:46)
[2019-01-03] MEDS: COREG PO SCH ×2 (08:46→20:13)
[2019-01-03] MEDS: LACTULOSE PO SCH ×2 (08:47→20:13)
[2019-01-03] MEDS: MIRALAX PO SCH ×2 (08:47→20:13)
--- NOTE | 2019-01-03 15:29 | EEG REPORT ---
DATE: 01/01/2019 EEG NUMBER: #[id number]. DATES: Begun on 01/01/2019 and completed on 01/02/2019. COMMENT: This is a digitally recorded 24 hour EEG done portably at the bedside for a patient with history of episodes, question of seizure, report of altered mental state. FINDINGS: During waking, medium amplitude 9 Hz posterior rhythm is present bilaterally, poorly sustained with uncertain reactivity to eye opening. Background contains polymorphic and rhythmic theta frequencies over the frontal and central regions symmetrically. Drowsing and stage 2 sleep were recorded with symmetric features. Usual head movement, muscle contraction and room artifacts are present and do not hinder interpretation. There were several pushbutton events with no diary entry, and I suspect these were accidental. There was no definite epileptiform discharge identified. Software detected several possible spike events, but on careful review, these appear to be movement artifact, vertex waves and other non epileptiform waveforms. She did not have a typical seizure or seizure-like event during the recording. INTERPRETATION: Normal EEG. CORRELATION: There is nothing on this record to establish the presence of a seizure disorder. She did not have an episode during the EEG and so this does not exclude the possibility that she does have seizures. cc: Kilo Vincent III, MD [facility]
[2019-01-03] MEDS: LEVAQUIN 750 MG/D5W 750 MG/150 ML IVPB IV SCH (17:37)
--- NOTE | 2019-01-03 17:46 | PROGRESS NOTE ---
DATE: 01/03/2019 SUBJECTIVE: The patient is resting comfortably in bed. She has no complaints at this time. OBJECTIVE: Vital Signs: Temperature 98.6 degrees, blood pressure 141/71, heart rate 59, respirations 16, O2 saturation is 93% on 3 L nasal cannula. General: This is an elderly female lying in bed, in no acute distress. Heart: S1, S2 normal. Regular rate and rhythm. Lungs: Equal air entry bilaterally. No crackles. No rales. Abdomen: Positive bowel sounds. Soft, nontender, nondistended. Extremities: No edema. No cyanosis. Neurologic: The patient is awake and alert. LABS: White blood cell count 16, hemoglobin 13, hematocrit 42, platelets 372,000. Sodium 133, potassium 4.2, chloride 92, CO2 37, BUN 18, creatinine 0.5, glucose 93. ASSESSMENT AND PLAN: 1. Possible pneumonia. We will broaden the patient's antibiotic coverage. We will also check a procalcitonin level. 2. Encephalopathy. Improved. 3. Seizure disorder. Continue on Keppra. 4. Chronic obstructive pulmonary disease exacerbation. Continue with bronchodilator therapy, antibiotics, and prednisone. 5. Leukocytosis. Slightly improved. 6. Constipation. Continue on scheduled laxative therapy. 7. Anxiety disorder. Continue on Xanax. 8. Hypertension. Continue on Coreg and Norvasc. 9. Deep vein thrombosis prophylaxis. Continue on Lovenox. 10. Will consult physical therapy. cc: Mary Raines MD
[2019-01-03] MEDS: DOXYCYCLINE 100 MG in NS 250 ML IV SCH ×2 (18:00→18:58)
[2019-01-03] MEDS: LOVENOX SUBQ SCH (20:13)
[2019-01-04] MEDS: DUONEB (A & A) INH SCH ×5 (03:15→19:45)
[2019-01-04] MEDS: PRILOSEC PO SCH (06:16)
[2019-01-04] MEDS: DOXYCYCLINE 100 MG in NS 250 ML IV SCH (06:16)
[2019-01-04 07:02] LABS: HEMATOCRIT 42.7 % (37.0-47.0); HEMOGLOBIN 14.3 g/dL (12.0-16.0); MCH 30.5 PG (27-31); MCHC 33.5 g/dL (33-37); MPV 9.3 FL (7.4-10.4); RBC 4.69 XMIL (4.2-5.4); RDW 13.6 % (11.5-14.5); WBC 15.74 X1000 (4.8-10.8)
[2019-01-04 07:43] LABS: AGAP 9; BUN 14 mg/dL (8-22); CALCIUM 8.4 mg/dL (8.8-10.2); CHLORIDE 95 mmol/L (98-107); COSMO 274; CREATININE 0.5 mg/dL (0.5-0.9); ESTIMATED GFR > 60; GLUCOSE 92 mg/dL (70-104); POTASSIUM 3.8 mmol/L (3.5-5.1); SODIUM 137 mmol/L (136-145); TCO2 33 mmol/L (25-35)
[2019-01-04] MEDS: EFFEXOR XR PO SCH (09:12)
[2019-01-04] MEDS: MOBIC PO SCH (09:12)
[2019-01-04] MEDS: NORVASC PO SCH (09:12)
[2019-01-04] MEDS: XANAX PO PRN (09:12)
[2019-01-04] MEDS: COREG PO SCH (09:12)
[2019-01-04] MEDS: PREDNISONE PO SCH (09:12)
[2019-01-04] MEDS: KEPPRA PO SCH (09:12)
[2019-01-04] MEDS: MIRALAX PO SCH (09:13)
[2019-01-04] MEDS: LACTULOSE PO SCH (09:13)
[2019-01-04] MEDS ORDERED: DULCOLAX PR ONE (10:42)
--- NOTE | 2019-01-04 11:42 | PROGRESS NOTE ---
DATE: 01/04/2019 SUBJECTIVE: The patient is resting comfortably in bed. She does have a productive cough. She has no complaints. OBJECTIVE: Vital Signs: Temperature 98.4 degrees, blood pressure 154/64, heart rate 60, respirations 15, and O2 saturation 95% on 3 L nasal cannula. General: This is a chronically ill- appearing elderly female lying in bed in no acute distress. HEENT: Head normocephalic and atraumatic. Heart: S1, S2 normal. Lungs: Equal air entry bilaterally. Diminished breath sounds at the bases. Abdomen: Positive bowel sounds. Soft, nontender, and nondistended. Extremities: No edema. No cyanosis. Neurologic: The patient is awake and alert. LABORATORY: White blood cell count 15, hemoglobin 14, hematocrit 42, and platelets 381,000. Sodium 137, potassium 3.8, chloride 95, CO2 33, BUN 14, creatinine 0.5, and glucose 92. ASSESSMENT AND PLAN: 1. Mild pulmonary edema. We will give the patient a dose of Lasix today. 2. Possible pneumonia. Continue with antibiotic therapy. We will await the procalcitonin level. 3. Chronic obstructive pulmonary disease exacerbation. Continue on bronchodilator therapy, supplemental oxygen and prednisone. 4. Seizure disorder. Continue on Keppra. 5. Anxiety disorder. Continue on Xanax. 6. Hypertension. Continue on Norvasc and Coreg. 7. Constipation. We will continue with lactulose and MiraLAX. We will also add a Dulcolax suppository. 8. Deep vein thrombosis prophylaxis. Continue on Lovenox. 9. Continue with physical therapy. cc: Mary Raines MD
[2019-01-04] MEDS: LEVAQUIN 750 MG/D5W 750 MG/150 ML IVPB IV SCH ×2 (17:13→19:44)
[2019-01-04] MEDS: LASIX IV ONE ×2 (19:44→19:47)
[2019-01-04] MEDS ORDERED: LASIX ONE (19:45)
[2019-01-05] MEDS: COREG PO SCH ×3 (00:01→21:31)
[2019-01-05] MEDS: LOVENOX SUBQ SCH ×2 (00:01→21:31)
[2019-01-05] MEDS: KEPPRA PO SCH ×3 (00:02→21:31)
[2019-01-05] MEDS: NORVASC PO SCH ×3 (00:02→21:31)
[2019-01-05] MEDS: MIRALAX PO SCH ×3 (00:04→21:32)
[2019-01-05] MEDS: LACTULOSE PO SCH ×4 (00:04→21:32)
[2019-01-05] MEDS: XANAX PO PRN ×3 (00:08→21:31)
[2019-01-05] MEDS: DOXYCYCLINE 100 MG in NS 250 ML IV SCH ×3 (00:11→23:51)
--- NOTE | 2019-01-05 00:32 | PULMONOLOGY PROGRESS NOTE ---
DATE: 01/04/2019 SUBJECTIVE: The patient is awake, alert, and conversant. She is asking to go home. OBJECTIVE: Vital Signs: The patient has been afebrile for the last 24 hours. Blood pressure 92/57, heart 80, respiratory rate 16, oxygen saturation 94% on 3 L per nasal cannula. HEENT: Pupils are equal and reactive. Oropharynx is clear. Neck: Supple. Chest: Reveals prolonged expiratory phase with no wheezing. Cardiac: S1, S2. Abdomen: Obese and soft. Extremities: Without edema. LABORATORIES: No new microbiology data. IMPRESSION: A 63-year-old with chronic obstructive pulmonary disease, acute on chronic hypoxemic respiratory failure, chronic hypercapnic respiratory failure, with new bibasilar infiltrates. RECOMMENDATION: 1. Continue bronchial hygiene. 2. Continue current antibiotics. 3. Obtain 2-view chest x-ray tomorrow. cc: Jayy Riojas MD
[2019-01-05] MEDS: DUONEB (A & A) INH SCH ×7 (02:38→23:45)
[2019-01-05] MEDS: PRILOSEC PO SCH (06:10)
[2019-01-05 07:38] LABS: HEMOGLOBIN 13.3 g/dL (12.0-16.0); MCH 30.3 PG (27-31); MCHC 33.3 g/dL (33-37); MCV 91.1 FL (81-99); MPV 9.4 FL (7.4-10.4); RBC 4.39 XMIL (4.2-5.4); RDW 13.5 % (11.5-14.5); WBC 13.79 X1000 (4.8-10.8)
[2019-01-05 08:06] LABS: AGAP 10; BUN 14 mg/dL (8-22); CALCIUM 8.5 mg/dL (8.8-10.2); CHLORIDE 95 mmol/L (98-107); COSMO 275; CREATININE 0.6 mg/dL (0.5-0.9); ESTIMATED GFR > 60; GLUCOSE 103 mg/dL (70-104); POTASSIUM 4.1 mmol/L (3.5-5.1); SODIUM 137 mmol/L (136-145); TCO2 32 mmol/L (25-35)
--- NOTE | 2019-01-05 09:31 | Diag Imaging Result Doc PS360 ---
CHEST-2 VIEWS - 01/05/2019 INDICATION: abnormal exam COMPARISON: 01/03/2019 FINDINGS: Stable hyperexpanded lungs. Stable mild cardiomegaly. Stable scarring or atelectasis at the lateral left lung base. No infiltrates or edema. IMPRESSION: COPD. Cardiomegaly. Left basilar atelectasis or scarring. Electronically signed by Luis Elizondo 01/05/2019 9:28 AM
[2019-01-05] MEDS: EFFEXOR XR PO SCH (10:00)
[2019-01-05] MEDS: PREDNISONE PO SCH (10:00)
[2019-01-05] MEDS: MOBIC PO SCH (10:00)
[2019-01-05] MEDS: LEVAQUIN 750 MG/D5W 750 MG/150 ML IVPB IV SCH ×2 (15:00→16:05)
[2019-01-05] MEDS: NICODERM PATCH TD SCH (15:01)
--- NOTE | 2019-01-05 17:18 | PROGRESS NOTE ---
DATE: 01/05/2019 SUBJECTIVE: The patient is resting comfortably in bed. She states that she wants to go home. No acute events noted overnight. OBJECTIVE: Vital Signs: Temperature 97.8 degrees, blood pressure 104/58, heart rate 65, respirations 16, O2 saturation 96% on 3 L nasal cannula, intake 460. General: This is a chronically ill-appearing elderly female lying in bed in no acute distress. Heart: S1, S2. Normal. Bradycardic. Lungs: Equal air entry bilaterally. No wheezing. No rales. No rhonchi. Abdomen: Positive bowel sounds. Soft, nontender, nondistended. Extremities: No edema, no cyanosis, no calf tenderness. Neurologic: The patient is awake and alert. LABS: White blood cell count 13.7, hemoglobin 13, hematocrit 40, platelets 332,000. Sodium 137, potassium 4.1, chloride 95, CO2 32, BUN 14, creatinine 0.6, glucose 103. Chest x-ray shows cardiomegaly. ASSESSMENT AND PLAN: 1. Chronic hypoxemic respiratory failure. Continue on supplemental oxygen. 2. Possible pneumonia. The chest x-ray done today shows no evidence of infiltrates. Also, the procalcitonin level is negative. 3. Chronic obstructive pulmonary disease exacerbation. Improved. Continue with prednisone, bronchodilator therapy and antibiotics. 4. Seizure disorder. Continue on Keppra. 5. Anxiety disorder. Continue on Xanax. 6. Hypertension. Continue on Norvasc and Coreg. 7. Leukocytosis. Improved. Continue antibiotic therapy. 8. Deep vein thrombosis prophylaxis. Continue on Lovenox. 9. Continue with physical therapy. We will likely plan to discharge the patient home with home health on Monday. cc: Mary Raines MD [facility]
--- NOTE | 2019-01-05 22:37 | PULMONOLOGY PROGRESS NOTE ---
DATE: 01/05/2019 SUBJECTIVE: The patient is awake, alert, and conversant. She is asking if I can let her go home. I explained that her primary doctor is Dr. Raines. OBJECTIVE: Vital Signs: The patient is afebrile. Blood pressure is 104/58, heart rate 65, respiratory rate 16, oxygen saturation 96% on nasal cannula. HEENT: Pupils are equal and reactive. Oropharynx appears clear. Neck: Supple. Chest: Reveals good air entry bilaterally with no wheezing. Cardiac: S1 and S2. Abdomen: Soft. Extremities: Without edema. LABORATORY DATA: White blood count 13.8, hemoglobin 13.3, platelet count 332,000. Sodium 137, potassium 4.1, chloride 95, bicarbonate 32, BUN 14, creatinine 0.8. IMAGING DATA: Chest x-ray reveals cardiomegaly with chronic atelectasis or scarring at the left base. IMPRESSION: A 63-year-old with: 1. Chronic obstructive pulmonary disease. 2. Acute on chronic hypoxemic respiratory failure. 3. Acute hypercapnic respiratory failure. 4. Basilar infiltrates left greater right. PLAN: 1. Continue bronchial hygiene. 2. Complete 7 days of antibiotics. 3. Anticipate chest x-ray on Monday. cc: Jayy Riojas MD
[2019-01-06] MEDS: DUONEB (A & A) INH SCH ×3 (03:13→11:30)
[2019-01-06] MEDS: PRILOSEC PO SCH (06:55)
[2019-01-06 07:17] LABS: BASO# 0.03 X1000 (0.0-0.2); BASO% 0.2 % (0.0-0.8); EOS# 0.22 X1000 (0.0-0.7); EOS% 1.4 % (0.0-10.0); HEMATOCRIT 36.5 % (37.0-47.0); HEMOGLOBIN 12.4 g/dL (12.0-16.0); IMM GRAN# 0.49 X1000 (0.0-0.04); LYMPH# 5.08 X1000 (1.2-3.4); LYMPH% 31.4 % (20.5-51.1); MCH 30.5 PG (27-31); MCV 89.9 FL (81-99); MONO# 1.01 X1000 (0.11-0.59); MONO% 6.3 % (1.7-9.3); MPV 9.5 FL (7.4-10.4); NEUT# 9.33 X1000 (1.4-6.5); NEUT% 57.7 % (42.2-75.2); PLT 320 X1000 (130-400); RBC 4.06 XMIL (4.2-5.4); RDW 13.3 % (11.5-14.5); WBC 16.16 X1000 (4.8-10.8)
[2019-01-06 07:25] LABS: AGAP 7; BUN 14 mg/dL (8-22); CALCIUM 8.5 mg/dL (8.8-10.2); CHLORIDE 96 mmol/L (98-107); COSMO 270; CREATININE 0.5 mg/dL (0.5-0.9); ESTIMATED GFR > 60; GLUCOSE 97 mg/dL (70-104); POTASSIUM 3.8 mmol/L (3.5-5.1); SODIUM 135 mmol/L (136-145); TCO2 32 mmol/L (25-35)
[2019-01-06] MEDS: NICODERM PATCH TD SCH (09:30)
[2019-01-06] MEDS: EFFEXOR XR PO SCH (09:30)
[2019-01-06] MEDS: MOBIC PO SCH (09:30)
[2019-01-06] MEDS: NORVASC PO SCH (09:30)
[2019-01-06] MEDS: PREDNISONE PO SCH (09:30)
[2019-01-06] MEDS: COREG PO SCH (09:30)
[2019-01-06] MEDS: MIRALAX PO SCH (09:30)
[2019-01-06] MEDS: LACTULOSE PO SCH (09:31)
[2019-01-06] MEDS: KEPPRA PO SCH (09:31)
[2019-01-06] MEDS: XANAX PO PRN (09:41)
[2019-01-06 12:13] VITALS: BP 135/69
[2019-01-06] MEDS: DOXYCYCLINE 100 MG in NS 250 ML IV SCH (13:04)
--- NOTE | 2019-01-06 16:35 | DISCHARGE SUMMARY ---
ADMISSION DATE: 12/31/2018 DISCHARGE DATE: 01/06/2019 FINAL DISCHARGE DIAGNOSIS: 1. Chronic hypoxemic respiratory failure on home oxygen 2. Pneumonia. 3. Chronic obstructive pulmonary disease exacerbation. 4. Seizure disorder. 5. Anxiety disorder. 6. Hypertension. 7. Steroid induced leukocytosis. CONSULTATIONS: 1. Pulmonary consultation with Dr. Riojas. 2. Neurology consultation with Dr. Vincent. IMAGIN. Head CT which revealed no evidence of hemorrhage. 2. Brain MRI which revealed several old lacunar bilaterally. Chronic microvascular disease. 3. Two-view chest x-ray which revealed left basilar atelectasis. HOSPITAL COURSE: Ms Moffett is a 63-year-old female with a history of seizure disorder, chronic hypoxemia and COPD on home oxygen who presented to the ER with confusion and shortness of breath. A chest x-ray was done in the ER that revealed cardiomegaly with pulmonary edema. The patient was admitted to the hospitalist service. The patient was treated with diuretic therapy however there was concern about pneumonia as well so antibiotics were initiated. Blood cultures were obtained and 1 bottle of the blood culture grew out coag-negative Staphylococcus that was noted to be a contaminant. Also the patient was seen by Dr. Vincent with the Neurology service and he increased the patient's Keppra dosage to 500 mg twice a day. The patient also underwent a EEG that was noted to be normal. The patient responded well to antibiotic and bronchodilator therapy and was ultimately transitioned to oral antibiotics. The patient continued to improve clinically and was discharged home on 01/06/2019. DISCHARGE MEDICATIONS: 1. Doxycycline 100 mg oral every 12 hours. 2. Keppra 50 mg p.o. twice a day. 3. Norvasc 5 mg p.o. twice a day. 4. Coreg 12.5 mg p.o. every 12 hours. 5. Levaquin 750 mg oral daily. 6. Xanax 0.5 mg oral 3 times a day. 7. Vitamin D3 5000 units oral daily. 8. Meloxicam 15 mg p.o. daily. 9. Effexor XR 150 mg p.o. daily. 10. DuoNeb 3 mL nebulized every 6 hours p.r.n. DISCHARGE DIET: Low-sodium diet. ACTIVITY: As tolerated. FOLLOWUP INSTRUCTIONS: The patient will need to follow up with Dr. Ross in 1 week. cc: Mary Raines MD MTDD
[2019-01-07] MEDS ORDERED: LEVAQUIN PO SCH (09:00)
== END 2019-01-06 14:10 | disposition home health service (06) | DRG 190 ==
LOC: SUPCPDRO → 3N 19:45 → ED 19:45 → SUATTDRO 23:29 → OBSVTOIN 23:29
PROVIDERS: ATTEND Internal Medicine
CPT/HCPCS: 51701; 70450; 70551; 71010; 71020; 71045; 71046; 80048; 80053; 80101; 80301; 80307; 80324; 80345; 80346; 80353; 80358; 80361; 80365; 81001; 82140; 82306; 82550; 82553; 82805; 82948; 83036; 83605; 83880; 83992; 84145; 84484; 85025; 85027; 85379; 87040; 93005; 94640; 94761; 95953; 95957; 96365; 97162; 97166; 97530; 97535; 99285; A9270; G0431; G0434; G0479; G0480; J1650; J1940; J1956; J2920; J2930; J7050; J7506; J7512; P9612; XXXXX

== ENCOUNTER 2019-04-03 11:50 | Inpatient (IN) ==
[2019-04-03] MEDS ORDERED: ZOFRAN IV PRN (15:50)
[2019-04-03] MEDS ORDERED: TYLENOL PO PRN (15:50)
[2019-04-03 16:43] LABS: BASO# 0.06 X1000 (0.0-0.2); BASO% 0.7 % (0.0-0.8); EOS# 0.27 X1000 (0.0-0.7); EOS% 3.3 % (0.0-10.0); HEMATOCRIT 39.7 % (37.0-47.0); HEMOGLOBIN 13.1 g/dL (12.0-16.0); IMM GRAN# 0.03 X1000 (0.0-0.04); IMM GRAN% 0.4 % (0.0-0.5); LYMPH# 2.27 X1000 (1.2-3.4); LYMPH% 27.8 % (20.5-51.1); MCH 30.2 PG (27-31); MCV 91.5 FL (81-99); MONO% 7.3 % (1.7-9.3); MPV 10.1 FL (7.4-10.4); NEUT# 4.95 X1000 (1.4-6.5); NEUT% 60.5 % (42.2-75.2); PLT 284 X1000 (130-400); RBC 4.34 XMIL (4.2-5.4); RDW 14.2 % (11.5-14.5); WBC 8.18 X1000 (4.8-10.8)
[2019-04-03 17:03] LABS: AGAP 9; BUN 11 mg/dL (8-22); CALCIUM 9.9 mg/dL (8.8-10.2); CHLORIDE 101 mmol/L (98-107); COSMO 282; CREATININE 0.5 mg/dL (0.5-0.9); ESTIMATED GFR > 60; GLUCOSE 124 mg/dL (70-104); POTASSIUM 5.1 mmol/L (3.5-5.1); SODIUM 141 mmol/L (136-145); TCO2 31 mmol/L (25-35)
[2019-04-03] MEDS: LOVENOX SUBQ SCH (18:16)
[2019-04-03] MEDS: CLEOCIN PO SCH ×2 (18:16→21:31)
[2019-04-03] MEDS: AZACTAM 2 GM in NS 100 ML IV SCH (18:45)
[2019-04-03] MEDS: NICODERM PATCH TD SCH (18:45)
--- NOTE | 2019-04-03 19:51 | HISTORY AND PHYSICAL ---
PRIMARY CARE PHYSICIAN: Jose Alfredo Ross M.D. INFECTIOUS DISEASE: Dr. Titi Diallo. CHIEF COMPLAINT: Bilateral lower extremity cellulitis sent from Infectious Disease office for a direct admit for failed outpatient treatment. HISTORY OF PRESENTING ILLNESS: This is a 64-year-old female who presents to [facility] as a direct admit from Dr. Titi Diallo' office, Infectious Disease, after she was seen there today and failed outpatient treatment for bilateral lower extremity cellulitis. States that she has been battling this cellulitis on and off for a year. Started out with some eczema, was sent to a semiconductor packages tester, given some cream, did not do well with that and wound up seeing Dr. Titi Diallo, states that she has been on p.o. antibiotics for the last month but has not had an improvement in her symptoms. She is noted to have erythema, edema, warmth to touch to bilateral lower extremities to the top of the lower mcgovern closest to her foot. She has got about a 0.5 cm open area and then on the inner aspect of her right ankle, she has about 0.5 cm ulceration there as well. No drainage noted. They are warm to touch with erythema and edema so she is being admitted for failed outpatient treatment. PAST MEDICAL HISTORY: COPD on home O2, seizures, hypertension and anxiety. PAST SURGICAL HISTORY: Left arm surgery. FAMILY HISTORY: Reviewed and noncontributory. SOCIAL HISTORY: She currently lives alone, is a 40+ pack a year smoker. Denies any alcohol or illicit drug use. ALLERGIES: Amoxicillin, penicillin and Keflex. HOME MEDICATIONS: A current list will need to be obtained, reconciled, reviewed and restarted as appropriate. We will place an order for nursing to update and confirm home medications. LABORATORY DATA: Pending. We are obtaining a CBC and a BMP. Cultures were done in the office at Dr. Diallo' today, and those are pending as well. REVIEW OF SYSTEMS: She denied any fever, chills, blurred vision, dizziness, chest pain, coughing, shortness of breath. She denied any abdominal pain, constipation, diarrhea, burning or hurting with urination. She does have erythema, edema, warmth to touch to bilateral lower extremities. PHYSICAL EXAMINATION: GENERAL: This is a 64-year-old female who is lying in the bed. Answers questions appropriately. HEENT: Normocephalic, atraumatic. Normal ENT inspection. Oropharynx and nares are clear. EYES: Pupils are equal, round, reactive to light and accommodation. NECK: Normal inspection, normal range of motion. LUNGS: Clear to auscultation bilaterally with equal lung expansion and chest wall movement. HEART: With regular rate and rhythm. No murmurs, rubs, or gallops. ABDOMEN: Soft, nontender, nondistended. Bowel sounds are present x4 quadrants. MUSCULOSKELETAL: She has 5/5 strength x4 extremities. SKIN: She is noted to have erythema, edema, warmth to touch to bilateral lower extremities. On the top of her mcgovern on the left leg closest to her foot, she has got about a 0.5 cm ulceration and to the inner aspect of her right ankle, she has got about a 0.5 cm ulceration as well. Neither are draining at this time. NEUROLOGICAL: The cranial nerves 2 through 12 appear grossly intact. ASSESSMENT: 1. Bilateral lower extremity cellulitis with failed outpatient treatment. 2. Chronic obstructive pulmonary disease on home O2. 3. Hypertension. 4. Anxiety. 5. Tobacco abuse. PLAN: She will be admitted to the medical unit, placed on telemetry, healthy heart diet. We will consult Infectious Disease. She is on Cleocin 300 mg p.o. q.8 hours and Azactam 2 g IV q.8. Lovenox 40 mg subcutaneous q.24 for DVT prophylaxis. Tylenol 650 mg p.o. q.6 hours p.r.n., Zofran 4 mg IV q.4 hours p.r.n. We are checking a CBC, BMP now, and we will recheck those in the a.m. as well. Further orders after seen by attending and by human performance consultant. Dictated by ALLIE Farmer for Elias Naqvi MD cc: ALLIE Farmer MD agree with above. the following is my own face to face assessment. bilateral lower extremity erythema, warmth, and edema. a few small ulcers with minimal drainage. will place on antibiotics and monitor. [facility]
[2019-04-03] MEDS: KEPPRA PO SCH (21:32)
--- NOTE | 2019-04-03 21:37 | INFECTIOUS DISEASE PROGRESS NO ---
DATE: 04/03/2019 PRESENT ILLNESS: Ms. Moffett was seen in our office recently for bilateral lower extremity cellulitis with some wounds which were cultured and noted to grow Staphylococcus epidermidis and Pseudomonas putida. MEDICATIONS: She was ordered doxycycline by mouth to take at home, as well as aztreonam due to her allergies. She did not take the aztreonam, but did take the doxycycline, with no improvement after 2 weeks. For this admission, we have ordered aztreonam 2 g IV every 8 hours and Cleocin 300 mg by mouth every 8 hours. PHYSICAL EXAMINATION: Vital Signs: Temperature is 98 degrees, pulse rate 85, respiratory rate 24, blood pressure 144/78, O2 saturation is 98% on 2 L. Weight is 68 kg. She is 5 feet 5 inches. General: This is a chronically ill-appearing, middle-aged female. She is sitting on the side of the bed and has just arrived to the floor recently from the emergency room. She is mildly short of breath, but in no acute distress. HEENT: Atraumatic, normocephalic. Oral mucous membranes are pink and moist. Conjunctivae are pink. Neck: Has a decrease in suppleness. Trachea is midline. Cardiovascular: Heart rate is regular. Respiratory: Lung sounds have some wheezing noted in the upper lobes. Diminished somewhat in the bases. Abdomen: Soft, round, and nontender. Bowel sounds are active. Integumentary: Skin is warm and dry with bilateral lower extremity erythema to her feet and calves as well as 1+ pretibial edema. She has small wounds to her right medial and left lateral ankles as well as the left lower calf. Neurologic: She is awake, alert, and oriented. Able to ambulate short distances independently with limitations due to her shortness of breath. LABORATORY AND X-RAY: Today, her white count is 8.18, hemoglobin 13.1, platelet count 284,000. Two weeks ago, her creatinine was 0.7 with an estimated GFR of greater than 60 and normal liver enzymes. Previous cultures of her ankle wounds grew Staphylococcus epidermidis and a Pseudomonas putida. No imaging reports at this point. ASSESSMENT AND PLAN: Ms. Moffett has bilateral lower extremity cellulitis with some small wounds to the ankle areas that have grown Pseudomonas and Staphylococcus epidermidis. She will need an IV started and we have ordered aztreonam 2 g intravenously every 8 hours and Cleocin 300 mg by mouth every 8 hours. Side effects of diarrhea, rash, and mouth pain or sores have been reviewed with the patient, and she has been told to let us know if any of these occur. She will also need to keep her lower extremities elevated, with the manual foot gatch to be up at all times. These plans have been discussed with and recommended by Dr. Diallo. COMORBIDITIES: for Ms. Moffett include seizure disorder, anxiety disorder, cigarette smoking with chronic obstructive pulmonary disease and history of pneumonia. Dictated by ALLIE Smith for Titi Diallo MD cc: Titi Diallo MD MTDD
[2019-04-04] MEDS: AZACTAM 2 GM in NS 100 ML IV SCH ×3 (02:03→17:15)
[2019-04-04] MEDS: CLEOCIN PO SCH ×3 (05:29→21:30)
[2019-04-04 06:25] LABS: BASO# 0.06 X1000 (0.0-0.2); BASO% 0.8 % (0.0-0.8); EOS# 0.36 X1000 (0.0-0.7); EOS% 5.1 % (0.0-10.0); HEMATOCRIT 38.6 % (37.0-47.0); HEMOGLOBIN 12.8 g/dL (12.0-16.0); IMM GRAN# 0.02 X1000 (0.0-0.04); IMM GRAN% 0.3 % (0.0-0.5); LYMPH# 2.02 X1000 (1.2-3.4); LYMPH% 28.4 % (20.5-51.1); MCHC 33.2 g/dL (33-37); MCV 90.6 FL (81-99); MONO# 0.57 X1000 (0.11-0.59); MPV 9.9 FL (7.4-10.4); NEUT# 4.09 X1000 (1.4-6.5); NEUT% 57.4 % (42.2-75.2); PLT 272 X1000 (130-400); RBC 4.26 XMIL (4.2-5.4); RDW 13.9 % (11.5-14.5); WBC 7.12 X1000 (4.8-10.8)
[2019-04-04 06:55] LABS: AGAP 12; BUN 12 mg/dL (8-22); CALCIUM 8.9 mg/dL (8.8-10.2); CHLORIDE 100 mmol/L (98-107); COSMO 276; CREATININE 0.5 mg/dL (0.5-0.9); ESTIMATED GFR > 60; GLUCOSE 105 mg/dL (70-104); POTASSIUM 4.4 mmol/L (3.5-5.1); SODIUM 138 mmol/L (136-145); TCO2 26 mmol/L (25-35)
[2019-04-04] MEDS ORDERED: AYR NASAL SPRAY NAS PRN (09:16)
[2019-04-04] MEDS: NICODERM PATCH TD SCH (09:22)
[2019-04-04] MEDS: XANAX PO SCH ×3 (09:22→17:15)
[2019-04-04] MEDS: KEPPRA PO SCH ×2 (09:22→21:29)
--- NOTE | 2019-04-04 15:18 | PROGRESS NOTE ---
DATE: 04/04/2019 INTERVAL HISTORY: The patient's bilateral lower extremity erythema and warmth still present, but improving. No new complaints. No acute events overnight. REVIEW OF SYSTEMS: A 12 point review negative except as per Interval History. LABORATORY DATA: CBC and basic metabolic panel unremarkable. VITALS: Temperature maximum 98.9 degrees, pulse 87, respirations 24, blood pressure 146/67, O2 saturation 92% on 2 L by nasal cannula. PHYSICAL EXAMINATION: General: No acute distress. Vitals: As above. HEENT: Normocephalic, atraumatic. Moist mucous membranes. No cervical adenopathy. Cardiovascular: Regular rate and rhythm. No murmurs noted. Pulmonary: Clear to auscultation bilaterally. No wheezing, rales, or rhonchi. Abdomen: Soft, nontender, nondistended. Bowel sounds positive. Extremities: Peripheral pulses decreased, but intact bilateral lower extremities with mild erythema, edema, and warmth from essentially the knee down. Edema is markedly improved. Warmth and erythema are somewhat improved. A few small ulcers around the feet and ankle. No significant drainage from the ulcers. Neurologic: Cranial nerves grossly intact. No focal deficits. Psychiatric: Normal mood and affect. Awake, alert, and oriented x3. Skin: leg changes as above. Otherwise no new rashes or lesions. ASSESSMENT AND PLAN: 1. Bilateral lower extremity cellulitis. The patient failed outpatient treatment and as sent into the hospital by Dr. Diallo with Infectious Disease. She is on antibiotics with clindamycin and aztreonam currently. She does appear to be improving. We will continue to follow and see what Infectious Disease recommends. If she continues to improve, then hopefully we will be able to transition back to p.o. antibiotics or get a PICC line and go home with home IV antibiotics in the next 24 to 48 hours. 2. Chronic obstructive pulmonary disease. On home oxygen. No sign of exacerbation at this time. Saturations stable on home 2 L. 3. Hypertension with some intermittent elevations. We will restart patient's home lisinopril and monitor. 4. Depression. Patient denies active depression currently. We will continue home medications. 5. Seizure disorder. Continue patient on home Keppra. 6. Tobacco abuse. Patient counseled on cessation and offered nicotine patch. [facility]
[2019-04-04] MEDS: LOVENOX SUBQ SCH (17:15)
[2019-04-04] MEDS: EFFEXOR XR PO SCH (17:17)
[2019-04-05] MEDS: AZACTAM 2 GM in NS 100 ML IV SCH ×3 (02:48→17:45)
[2019-04-05] MEDS: CLEOCIN PO SCH ×2 (05:54→14:31)
[2019-04-05 06:24] LABS: BASO# 0.05 X1000 (0.0-0.2); BASO% 0.8 % (0.0-0.8); EOS# 0.36 X1000 (0.0-0.7); EOS% 5.5 % (0.0-10.0); HEMATOCRIT 39.7 % (37.0-47.0); HEMOGLOBIN 13.2 g/dL (12.0-16.0); IMM GRAN# 0.03 X1000 (0.0-0.04); IMM GRAN% 0.5 % (0.0-0.5); LYMPH# 2.34 X1000 (1.2-3.4); LYMPH% 35.8 % (20.5-51.1); MCH 30.1 PG (27-31); MCHC 33.2 g/dL (33-37); MCV 90.4 FL (81-99); MONO# 0.55 X1000 (0.11-0.59); MONO% 8.4 % (1.7-9.3); NEUT# 3.21 X1000 (1.4-6.5); PLT 271 X1000 (130-400); RBC 4.39 XMIL (4.2-5.4); RDW 13.9 % (11.5-14.5); WBC 6.54 X1000 (4.8-10.8)
[2019-04-05 06:50] LABS: AGAP 8; BUN 12 mg/dL (8-22); CHLORIDE 101 mmol/L (98-107); COSMO 273; CREATININE 0.5 mg/dL (0.5-0.9); ESTIMATED GFR > 60; GLUCOSE 95 mg/dL (70-104); POTASSIUM 4.5 mmol/L (3.5-5.1); SODIUM 137 mmol/L (136-145); TCO2 28 mmol/L (25-35)
[2019-04-05] MEDS ORDERED: PRINIVIL PO SCH (09:00)
[2019-04-05] MEDS: KEPPRA PO SCH (09:20)
[2019-04-05] MEDS: XANAX PO SCH ×2 (09:20→14:31)
[2019-04-05] MEDS: EFFEXOR XR PO SCH (09:20)
[2019-04-05] MEDS: NICODERM PATCH TD SCH (09:20)
[2019-04-05] MEDS: DUONEB (A & A) INH PRN ×2 (10:46→16:16)
--- NOTE | 2019-04-05 15:18 | PROGRESS NOTE ---
DATE: 04/05/2019 INTERVAL HISTORY: The patient's lower extremity erythema continues to improve. Really, no further warmth at this point. Swelling also markedly improved. No acute events overnight. No new complaints. REVIEW OF SYSTEMS: A 12-point review of systems negative except as per interval history. LABS: CBC and basic metabolic panel unremarkable. PHYSICAL EXAMINATION: Vital Signs: T-max 98.5 degrees, pulse 81, respirations 20, blood pressure 120/60, O2 saturation 95% on 2 liters by nasal cannula. General: On physical examination, no acute distress. Vital signs are as above. HEENT and Neck: Normocephalic, atraumatic. Moist mucous membranes. No cervical adenopathy. Cardiovascular: Regular rate and rhythm. No murmurs noted. Pulmonary: Clear to auscultation bilaterally. No wheezing, rales, or rhonchi. Abdomen: Soft, nontender, nondistended. Bowel sounds positive. Extremities: Peripheral pulses decreased, but intact. Bilateral lower extremities with minimal erythema. Only trace edema at this point. No further warmth. The small ulcers around the feet and ankle bandaged. No significant drainage. Neurologic: Cranial nerves grossly intact with no focal deficits. Psychiatric: Normal mood and affect. Awake, alert, oriented x3. Skin: Changes as above, otherwise no new rashes or lesions. ASSESSMENT AND PLAN: 1. Bilateral lower extremity cellulitis with failure of outpatient antibiotics. The patient admitted to us by Dr. Diallo for outpatient treatment failure. On antibiotics with clindamycin and aztreonam. Appears to be improving rapidly. We will await further infectious disease recommendations, but hopeful that she can be discharged within the next 24 to 48 hours. 2. Chronic obstructive pulmonary disease on home oxygen with stable saturations. No sign of exacerbation at this time. Monitor. 3. Hypertension. Blood pressure control improved on patient's home lisinopril. Monitor. 4. Depression. Patient denies active depression currently. Continue home maintenance medication. 5. Seizure disorder. Continue patient on home Keppra. 6. Tobacco abuse. Patient has been counseled on cessation and has been offered nicotine patch.
[2019-04-05 15:39] VITALS: BP 136/66
--- NOTE | 2019-04-05 18:48 | INFECTIOUS DISEASE PROGRESS NO ---
DATE: 04/05/2019 PRESENT ILLNESS: The patient has bilateral leg cellulitis with edema. The last culture was taken from the patient's legs grew Staph epidermidis and Pseudomonas aeruginosa. MEDICATIONS: The patient in the hospital is receiving a combination of aztreonam and clindamycin. PHYSICAL EXAMINATION: Vital Signs: Temperature is 98.5 degrees, pulse 74, respirations 20, blood pressure 136/66. General: This is a somewhat ill-appearing middle-aged female. She is in no acute distress. Head/eyes/ears/nose/throat: She can hear my spoken words and see near objects. She does not have any white patches on her tongue. Neck: No pain with movement of her neck. Lungs: Clear to auscultation. Cardiovascular: Heart rate is regular. Abdomen: Soft and nontender. Extremities: Both legs are much less smaller. The edema has cleared. There is some shedding of superficial skin. The legs have a dark red appearance. There is no drainage. Neurologic: Patient is alert. She can move her extremities. There is no tremor. LAB AND X-RAY: CBC shows a white count of 6540, hemoglobin 13.2, and platelet count 271,000. Creatinine 0.5. GFR is greater than 60. The last 2 cultures taken from the patient's legs grew Pseudomonas and Staph epidermidis. ASSESSMENT AND PLAN: The patient is going home tonight on clindamycin 300 mg p.o. every 8 hours and Levaquin 500 mg p.o. daily. Some of the side effects of the antibiotics, including rash, diarrhea, seizures, and tendon rupture have been explained to the patient who agrees with treatment. I have requested that the patient have a return appointment at my office in 1 week. I have electronically sent a prescription for the clindamycin and Levaquin to the patient's drug store she uses in [email or web address]. The prescriptions are for 1 week of both medicines. COMORBIDITIES: Patient is a cigarette smoker. She has chronic obstructive pulmonary disease. She also has a seizure disorder and anxiety disorder. cc: T[facility] Diallo [facility]
--- NOTE | 2019-04-09 16:08 | DISCHARGE SUMMARY ---
ADMISSION DATE: 04/03/2019 DISCHARGE DATE: 04/05/2019 CONSULTATIONS: Infectious disease: Dr. Diallo PERTINENT STUDIES: CBC and basic metabolic panels unremarkable. HOSPITAL COURSE: The patient presented initially as a direct admission from Infectious Disease Clinic. She was seen for some bilateral lower extremity cellulitis on top of chronic venous stasis dermatitis. She was felt to have worsening infection in the lungs several small ulcerations and was sent for IV antibiotics. She was started on antibiotics with clindamycin and aztreonam as per ID. Patient's bilateral lower extremity cellulitis still as improved slowly and after couple days she was transitioned to by mouth antibiotics with clindamycin and Levaquin. Patient's other medical conditions including COPD, hypertension, and seizure disorder were stable. The patient was counseled on smoking cessation and offered nicotine patch. She was discharged home in stable condition to follow up with her PCP and Infectious Disease. Patient was continued on her home 2 liters of oxygen with stable oxygen saturations throughout. DISCHARGE DIAGNOSES: 1. Bilateral lower extremity cellulitis. 2. Chronic venous stasis dermatitis. 3. Chronic small ulcerations of the legs. 4. Hypertension. 5. Seizure disorder. 6. Tobacco abuse. 7. Chronic hypoxic respiratory failure. 8. Depression and anxiety. DISCHARGE DIET: Low-salt. DISCHARGE MEDICATIONS: 1. Keppra 500 mg in the morning and 750 mg p.o. at bedtime. 2. Xanax 0.5 mg p.o. t.i.d. as needed. 3. Duo Nebs q.6 hours p.r.n. 4. Venlafaxine HCL 150 mg p.o. q day. 5. Lisinopril 10 mg p.o. daily. 6. Albuterol inhaler as needed. 7. Clindamycin 300 mg p.o. q.8 hours. 8. Levaquin 1200 mg p.o. daily. 9. Nicotine patch 21 mg daily. FOLLOWUP AND PLAN: The patient discharging home to follow up with ID and PCP. Patient to continue IV antibiotics. Patient counseled on smoking cessation and given a prescription for nicotine patch. TIME SPENT: Greater than 30 minutes were spent counseling patient and arranging discharge.
[2019-04-17] MEDS ORDERED: SANTYL OINT TOP SCH (10:45)
== END 2019-04-05 18:22 | disposition home health service (06) | DRG 603 ==
LOC: DIRADM 11:50 → 4N 15:36
PROVIDERS: ATTEND Internal Medicine

== ENCOUNTER 2019-04-16 14:00 | Inpatient (IN) ==
[2019-04-16] MEDS ORDERED: ZOFRAN IV PRN (17:18)
--- NOTE | 2019-04-16 17:48 | Diag Imaging Result Doc PS360 ---
EXAM: CHEST-PORTABLE - 04/16/2019 HISTORY: r/o pna TECHNIQUE: Portable chest COMPARISON: 03/16/2019 FINDINGS: Heart size appears upper normal stable. There is apparent scarring at the right middle lobe and bilateral bases similar to prior. The possible small left pleural effusion. There are no other acute changes identified. IMPRESSION: Stable exam compared to 03/16/2019 except for possible development of a small left pleural effusion. Electronically signed by Guanako Bradshaw 04/16/2019 5:45 PM
[2019-04-16 18:00] LABS: BASO# 0.09 X1000 (0.0-0.2); BASO% 1.2 % (0.0-0.8); EOS# 0.36 X1000 (0.0-0.7); HEMATOCRIT 39.7 % (37.0-47.0); HEMOGLOBIN 13.1 g/dL (12.0-16.0); IMM GRAN# 0.03 X1000 (0.0-0.04); IMM GRAN% 0.4 % (0.0-0.5); LYMPH# 2.67 X1000 (1.2-3.4); MCH 30.2 PG (27-31); MCV 91.5 FL (81-99); MONO# 0.56 X1000 (0.11-0.59); MONO% 7.8 % (1.7-9.3); MPV 9.7 FL (7.4-10.4); NEUT# 3.51 X1000 (1.4-6.5); NEUT% 48.6 % (42.2-75.2); PLT 303 X1000 (130-400); RBC 4.34 XMIL (4.2-5.4); RDW 14.1 % (11.5-14.5); WBC 7.22 X1000 (4.8-10.8)
[2019-04-16 18:20] LABS: AGAP 10; ALB/GLOB RATIO 1.5; ALBUMIN 4.1 g/dL (3.5-5.0); ALKALINE PHOSPHATASE 72 U/L (32-104); BUN 8 mg/dL (8-22); CALCIUM 9.8 mg/dL (8.8-10.2); CHLORIDE 101 mmol/L (98-107); COSMO 281; CREATININE 0.5 mg/dL (0.5-0.9); ESTIMATED GFR > 60; GLUCOSE 88 mg/dL (70-104); GOT 20 U/L (10-30); GPT 19 U/L (10-36); MAGNESIUM 2.2 mg/dL (1.5-2.7); POTASSIUM 4.9 mmol/L (3.5-5.1); SODIUM 142 mmol/L (136-145); TCO2 31 mmol/L (25-35); TOTAL BILIRUBIN 0.17 mg/dL (0.20-1.00); TOTAL PROTEIN 6.8 g/dL (6.3-8.3)
[2019-04-16 18:35] LABS: INR 0.91; PROTIME 12.3 Seconds (11.0-16.0)
[2019-04-16 18:36] LABS: PTT 30.4 Seconds (22.3-41.8)
--- NOTE | 2019-04-16 19:30 | EKG Report ---
Test Performed on : 04/16/2019 6:19:42 PM Test Reason : admit ekg; nicole bruno Blood Pressure : / mmHG Vent. Rate : 062 BPM Atrial Rate : 062 BPM P-R Int : 168 ms QRS Dur : 150 ms QT Int : 436 ms P-R-T Axes : 063 044 033 degrees QTc Int : 442 ms Normal sinus rhythm. 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
--- NOTE | 2019-04-16 20:49 | HISTORY AND PHYSICAL ---
PRIMARY CARE PROVIDER: Dr. Jose Alfredo Ross. PRIMARY CLINICAL DATA ANALYST: Dr. Gudino. PRIMARY INFECTIOUS DISEASE: Dr. Titi Dilalo. CHIEF COMPLAINT: Ulcers bilateral lower extremities with poor healing. HISTORY OF PRESENT ILLNESS: Ms. Mariia Moffett is a 64-year-old female with a medical history of vascular ulcers of the lower extremities and cellulitis who apparently was positive for Pseudomonas aeruginosa and Staphylococcus epidermidis. Apparently was here recently treated between 04/03 and 04/09 for these ulcers. She was sent home on oral antibiotic therapy. Apparently, she could not afford IV antibiotic therapy, but has been seen by Dr. Diallo and is going to have to come back in for IV antibiotic therapy as the wounds are worsening. We will also do Wound Care consult and attempt to find her a location where she can receive IV antibiotic therapy. PAST MEDICAL HISTORY: 1. Seizure disorder with last 1 being over a year ago. 2. Hypertension. 3. Hyperlipidemia. 4. COPD with continuous 2 L of nasal cannula oxygen at home. 5. Anxiety. 6. Depression. 7. History of a left arm fracture. 8. Myoclonic gammopathy, IgG kappa type, paraprotein since this MGUS is myoclonal gammopathy of uncertain significance. For that, she is followed by Dr. Gudino. SURGICAL HISTORY: 1. Irrigation and debridement of the left ulnar styloid fracture and ORIF of the distal radius fracture. 2. Bone marrow aspiration in 2017. SOCIAL HISTORY: Half pack per day smoker since age of since age 20. Stopped alcohol in 2015. Denies any illicit drug use. She is retired, lives alone. She is active at home. FAMILY HISTORY: On the mother's side of the family ID, hypertension, stroke. Father side of family has hypertension. ALLERGIES: Amoxicillin, penicillin, cephalexin. HOME MEDICATIONS: They have not been reconciled yet. We will review those once they are verified. REVIEW OF SYSTEMS: Fourteen point review of systems are complete and all were negative except for those mentioned above in the HPI. She wants to keep Band-Aids on those wounds and they are oozing. PHYSICAL EXAM: VITAL SIGNS: Not obtained. GENERAL EXAM: Ms. Mariia Moffett is a 64-year-old female. She is in no acute distress. She is able to answer questions appropriately. HEENT: Atraumatic, normocephalic. Pupils are equal, round, and reactive to light. Extraocular movements intact. Mucous membranes are dry. NECK: Trachea midline. CARDIOVASCULAR: S1, S2. Regular rate and rhythm. No rubs, gallops, murmurs. Trace lower extremity edema. Trace dorsalis pedal pulses. Definite red cellulitis of the lower extremities. Negative for JVD or carotid bruits. PULMONARY: Clear to auscultation. Bilateral breath sounds. No accessory muscle use or work of breathing noted. GI: Soft, nontender, nondistended. Positive bowel sounds x4. EXTREMITIES: Moves all extremities equally. NEUROLOGIC: A and O x3. Follows commands. SKIN: Warm, dry, and not intact in the lower extremities. She has on the right inner ankle there is an oozing dime-sized ulcer. On the left outer ankle there is a smaller ulcer also oozing. Then, on the left mcgovern there is a smaller ulcer as well. All have been covered with a Band-Aid. There is redness and irritation of the bilateral lower extremities consistent with cellulitis. LABORATORY DATA: White blood cells 7000, hemoglobin 13, hematocrit 39, platelet count 303,000. Sodium 142, potassium 4.9, BUN 8, creatinine 0.5, glucose 88, calcium 9.8, magnesium 2.2, bilirubin 0.17. AST 20, ALT 19. Albumin is 4.1. Serum lactate 1.2. IMAGING: There was chest x-ray: Stable exam. Possible development of a small left pleural effusion. ASSESSMENT AND PLAN: 1. Failed outpatient treatment for bilateral lower extremity cellulitis and ulcerations. She is not tolerating oral antibiotics. She is here for IV antibiotic therapy and possibly IV antibiotic therapy in a long-term care facility in order to heal these wounds up. We will get a wound care consult and her last cultures of the wounds were performed on 04/03/2019, which was Pseudomonas aeruginosa, camargo sensitive. On 03/18/2019, a Staphylococcus epidermidis, which has resistance to erythromycin, penicillin and Bactrim. She has multiple antibiotic allergies which will make her treatment difficult. The antibiotics that have been started here is aztreonam and daptomycin. Dr. Diallo will be following as he had her as a direct admit. 2. It could be a peripheral arterial disease. There was mention that maybe in the past she was supposed to get some stents that never happened. So, it is going to be long time for these wounds to heal. 3. History of seizure disorder. Once her Keppra gets verified, we will resume that. 4. Hyperlipidemia. 5. Chronic obstructive pulmonary disease on 2 L of oxygen. No exacerbation noted. We will continue her on oxygen 2 L. If we need to, we can add nebulizers. 6. Anxiety, depression. 7. History of MGUS followed by Dr. Gudino. The patient is requesting that he be consulted so we put in a consult for him. Apparently, she has had a recent chest CT scan last week. It must have not been performed here because we can't find it. 8. Deep venous thrombosis prophylaxis. Lovenox 40 subcu daily. Dictated by ALLIE Emery for Edinson Hauser MD Addendum: Patient seen and examined by myself. Agree with ALLIE note. It reflects my assessment and plan. Patient is being admitted for recurrent bilateral LE cellulitis. Will start antibiotics as per Dr. Diallo recommendation and monitor her closely. cc: ALLIE Emery MD Sammy Becdach, MD Leroy F. Harris, MD Charles D Coffey, MD MTDD
[2019-04-16] MEDS: AZACTAM 2 GM in NS 100 ML IV SCH (22:37)
[2019-04-17] MEDS: CUBICIN 400 MG in NS 100 ML IV SCH ×2 (00:10→23:10)
[2019-04-17] MEDS: NICODERM PATCH TD PRN ×2 (01:16→23:11)
[2019-04-17] MEDS: XANAX PO PRN ×3 (01:16→23:10)
[2019-04-17] MEDS: KEPPRA PO SCH ×3 (01:16→21:53)
[2019-04-17] MEDS: AZACTAM 2 GM in NS 100 ML IV SCH ×3 (06:20→21:53)
[2019-04-17] MEDS: TYLENOL PO PRN ×2 (06:21→23:15)
[2019-04-17 07:08] LABS: BASO# 0.06 X1000 (0.0-0.2); BASO% 1.1 % (0.0-0.8); EOS# 0.35 X1000 (0.0-0.7); EOS% 6.5 % (0.0-10.0); HEMATOCRIT 39.1 % (37.0-47.0); HEMOGLOBIN 13.1 g/dL (12.0-16.0); IMM GRAN# 0.03 X1000 (0.0-0.04); IMM GRAN% 0.6 % (0.0-0.5); LYMPH# 1.81 X1000 (1.2-3.4); LYMPH% 33.5 % (20.5-51.1); MCH 30.1 PG (27-31); MCHC 33.5 g/dL (33-37); MCV 89.9 FL (81-99); MONO# 0.48 X1000 (0.11-0.59); MONO% 8.9 % (1.7-9.3); MPV 9.8 FL (7.4-10.4); NEUT# 2.68 X1000 (1.4-6.5); NEUT% 49.4 % (42.2-75.2); PLT 287 X1000 (130-400); RBC 4.35 XMIL (4.2-5.4); RDW 13.8 % (11.5-14.5); WBC 5.41 X1000 (4.8-10.8)
[2019-04-17 07:11] LABS: INR 1.01; PROTIME 13.4 Seconds (11.0-16.0)
[2019-04-17 07:21] LABS: AGAP 8; ALB/GLOB RATIO 1.6; ALBUMIN 3.9 g/dL (3.5-5.0); ALKALINE PHOSPHATASE 66 U/L (32-104); BUN 7 mg/dL (8-22); CALCIUM 8.7 mg/dL (8.8-10.2); CHLORIDE 96 mmol/L (98-107); COSMO 267; CREATININE 0.5 mg/dL (0.5-0.9); ESTIMATED GFR > 60; GLUCOSE 105 mg/dL (70-104); GOT 21 U/L (10-30); GPT 17 U/L (10-36); MAGNESIUM 2.1 mg/dL (1.5-2.7); SODIUM 134 mmol/L (136-145); TCO2 30 mmol/L (25-35); TOTAL PROTEIN 6.4 g/dL (6.3-8.3)
[2019-04-17] MEDS: LOVENOX SUBQ SCH (08:41)
--- NOTE | 2019-04-17 14:52 | INFECTIOUS DISEASE PROGRESS NO ---
DATE: 04/17/2019 PRESENT ILLNESS: Ms. Moffett has a bilateral lower extremity cellulitis with wounds that had previously grown Staphylococcus epidermidis and Pseudomonas aeruginosa. She was in the office yesterday morning, at which time the cellulitis had worsened 1 week after her discharge from the hospital. MEDICATIONS: We have started her on aztreonam 2 grams IV every 8 hours and daptomycin 400 mg IV every 24 hours. Previously she was taking clindamycin at home, which did not improve her condition. PHYSICAL EXAMINATION: Vital Signs: Temperature is 98 degrees, pulse rate 73, respiratory rate 20, blood pressure 160/73, and O2 saturation is 98% on 2.5 L nasal cannula. General: This is a chronically ill-appearing middle-aged female. She is lying in bed, currently in no acute distress. HEENT: Atraumatic, normocephalic. Oral mucous membranes are pink and moist. Conjunctivae are pink. Neck: Has a decrease in suppleness. Trachea is midline. Cardiovascular: Heart rate and rhythm are regular. Normal sinus rhythm on the monitor. Respiratory: Lung sounds are bilaterally clear to auscultation. No work of breathing is noted. Abdomen: Soft, distended, nontender. Bowel sounds are active. Integumentary: Skin is warm and dry with less erythema noted to the bilateral lower extremities. There are dressings in place to bilateral ankles, recently placed and not removed at this time. Neurologic: She is awake, alert, and oriented. She does have difficulty in retaining information, with frequent forgetfulness. LABORATORY AND X-RAY: Today her white count is 5.41, hemoglobin 13.1, platelet count 287,000. Creatinine is 0.5, estimated GFR is greater than 60. Total bilirubin is 0.2, AST 21, ALT 17 alkaline phosphatase 66. Blood cultures are pending, as well as right and left ankle cultures. Chest x-ray from admission is stable with the possibility of a small left pleural effusion. EKG shows normal sinus rhythm with right bundle-branch block. ASSESSMENT AND PLAN: Ms. Moffett was discharged from the hospital last week after being treated for bilateral lower extremity cellulitis. She took clindamycin at home, which did not improve her situation, and after being seen in the office yesterday morning, we asked her to be to be a direct admit once again. She arrived yesterday evening, and we started her on her current antibiotics of aztreonam and daptomycin. 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 She has been seen by the wound care nurse who has put in some wound care orders. For now, we will continue the antibiotics as prescribed, awaiting the results of the wound cultures. These plans have been discussed with and recommended by Dr. Diallo. COMORBIDITIES: For Ms. Moffett include that she is a cigarette smoker with COPD, anxiety disorder, and seizure disorder. Dictated by ALLIE Smith for Titi Diallo MD cc: Titi Diallo MD MTDD
[2019-04-17] MEDS: DUONEB (A & A) INH PRN (15:52)
--- NOTE | 2019-04-17 15:56 | PROGRESS NOTE ---
DATE: 04/17/2019 SUBJECTIVE: Patient reports feeling fine. Denies any fever or chills. OBJECTIVE: Vital Signs: Temperature degrees 98, heart rate 73, respiratory rate 20, blood pressure 160/73, O2 saturation 98% on room air. General: This is a chronically ill-appearing, 64- year-old female lying in bed, in no acute distress. Cardiovascular: S1, S2 heard. No murmurs, gallops, or rubs. Regular rate and rhythm. Respiratory: Clear bilaterally to auscultation. No work of breathing or using accessory muscles. Abdomen: Soft, nontender to palpation. Bowel sounds present. No organomegaly. Extremities: The patient has a right inner ankle losing 9 size ulcer. On the left outer ankle there is a small ulcer that is oozing as well. There is on the left mcgovern noted a small ulcer. There is also redness and irritation of the bilateral lower extremity consistent with cellulitis. Neurological: Patient alert oriented x3. Moves 4 extremities. LABORATORY DATA: CBC is normal. BMP is also normal as well. ASSESSMENT AND PLAN: 1. Failure of outpatient treatment for bilateral lower extremity cellulitis, multiple ulcerations. Patient is on daptomycin and aztreonam. Previous cultures were positive for staphylococcal epidermidis and Pseudomonas. She was admitted as a direct admission from Dr. Diallo office. Considering that she may need to be on antibiotics for a long period time we are going to explore year going to explore LTAC. We have consulted wound care nurse for further recommendations.. 2. Peripheral vascular disease. cc: Edinson Hauser MD
[2019-04-17] MEDS: SANTYL OINT TOP SCH (16:06)
[2019-04-17] MEDS: PRINIVIL PO SCH (16:07)
[2019-04-17] MEDS: EFFEXOR XR PO SCH (16:07)
--- NOTE | 2019-04-17 16:07 | PROGRESS NOTE ---
DATE: 04/17/2019 CONTINUATION OF PROGRESS NOTE: ASSESSMENT/PLAN: 1. Failed outpatient treatment for bilateral lower extremity cellulitis and ulceration. Patient is on daptomycin and aztreonam for because previous culture showed Staphylococcus epidermidis, and Pseudomonas. The patient has multiple antibiotic allergies. At this point, we are exploring the possibility of sending her to LTAC considering this chronic ulceration and cellulitis. 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 2. Peripheral vascular disease. Patient was supposed to have some stents placed it in both legs that never happened. On top of that, the fact that she smokes makes this condition worse. The patient advised to stop smoking. 3. History of seizure the patient is on Keppra. We will continue with the same management. 4. Hyperlipidemia we will continue with home medications. 5. Chronic obstructive pulmonary disease on 2 L of oxygen. The patient is not on any exacerbation. We will continue to monitor. 6. History of monoclonal gammopathy followed with Dr. Gudino, konstantin. We will continue to monitor. 7. Deep venous thrombosis prophylaxis. Patient is on Lovenox 40 mg subcutaneous daily. DISPOSITION: We will continue to monitor this patient closely. We will follow lead from Infectious Disease. cc: Edinson Hauser MD
--- NOTE | 2019-04-17 21:01 | HEMO/ONC CONSULTATION ---
DATE: 04/17/2019 ADMITTING PHYSICIAN: Damian Goetz MD REQUESTING PHYSICIAN: Damian Goetz MD We appreciate this consult. CHIEF COMPLAINT: MGUS. HISTORY OF PRESENT ILLNESS: Ms. Mariia Moffett is a 64-year-old female, well known to Dr. Gudino, with a history of MGUS. The patient's last monoclonal spike was 200. Her last IgG level was 500. She has been followed in the clinic with stable disease. The patient has a history of vascular ulcers to the lower extremities with cellulitis, positive for Pseudomonas aeruginosa and Staphylococcus epidermidis. She was treated as an outpatient and failed therapy. She is admitted for inpatient IV antibiotic therapy. We are consulted as the patient is well known to us with a history of MGUS. PAST MEDICAL HISTORY: 1. Seizure disorder. 2. Hypertension. 3. Hyperlipidemia. 4. COPD on 2 liters nasal cannula O2 at home. 5. Anxiety. 6. Depression. 7. MGUS, IgG kappa type paraprotein. PAST SURGICAL HISTORY: 1. I and D of left ulnar styloid fracture. 2. ORIF of distal radius fracture. 3. Bone marrow aspiration 2016. SOCIAL HISTORY: The patient smokes 1/2 to 1 pack cigarettes daily. She reports that she stopped drinking alcohol in 2014. She denies any illicit drug use. FAMILY HISTORY: Negative for hematologic or oncologic disease. MEDICATIONS ON ADMISSION: In the process of being reconciled. ALLERGIES: Are to amoxicillin, penicillin, and cephalexin. REVIEW OF SYSTEMS: A 14-point review of systems was obtained and is negative except for mentioned in HPI. PHYSICAL EXAMINATION: General: Ms. Moffett is a 64-year-old female, lying supine in bed in no immediate distress. Vital Signs: Temperature 98 degrees, blood pressure 166/73, heart rate 65, respirations 18, and O2 saturation is 98% on room air. HEENT: Normocephalic, atraumatic. Mucous membranes are pink and moist. Sclerae is anicteric. Extraocular movements intact. Neck: Supple. Lungs: Clear to auscultation bilaterally. Chest expansion is equal bilaterally. Cardiovascular: S1, S2 is heard. No murmurs, rubs or gallops. Abdomen: Nondistended. Extremities: With no edema. She does have excoriated bilateral lower extremities secondary to significant cellulitis. Neurologic: The patient is awake, alert, and oriented x3. She has no focal deficits. LABORATORY DATA: Hemoglobin 13.1, hematocrit 39.1, white blood cell count is 5.41, platelets 287,000. Sodium 134, potassium 4, chloride 96, CO2 is 30, BUN 7, creatinine 0.5, and glucose is 105. ASSESSMENT AND PLAN: 1. Monoclonal gammopathy of undetermined significance (MGUS), last monoclonal spike was 200 with an IgG of 500. The patient has had stable disease. She has been followed in clinic regularly. We will continue to do so. We will obtain a repeat IgG level and provide IVIG if necessary. 2. Bilateral lower extremity cellulitis and ulcerations. The patient has failed outpatient therapy and is admitted for IV antibiotics. Infectious disease is currently following. 3. Questionable peripheral arterial disease. Workup is pending. 4. Chronic obstructive pulmonary disease, stable. 5. Tobacco abuse. The patient underwent CT lung screening recently, which was negative for carcinoma. The patient did have a stable tiny nodule that was noted. We will follow along with you and make further recommendations pending outcomes. The above reflects the history, exam, and assessment of Dr. Gudino. Dictated by ALLIE Tamayo for Lee Gudino MD cc: ALLIE Tamayo MD
[2019-04-18] MEDS: AZACTAM 2 GM in NS 100 ML IV SCH ×3 (05:35→22:50)
[2019-04-18] MEDS: TYLENOL PO PRN (05:37)
[2019-04-18] MEDS: SANTYL OINT TOP SCH (08:13)
[2019-04-18] MEDS: KEPPRA PO SCH ×2 (08:13→21:26)
[2019-04-18] MEDS: PRINIVIL PO SCH (08:13)
[2019-04-18] MEDS: LOVENOX SUBQ SCH (08:13)
[2019-04-18] MEDS: VITAMIN D PO SCH (08:13)
[2019-04-18] MEDS ORDERED: PRINIVIL PO SCH (09:00)
[2019-04-18] MEDS: XANAX PO PRN ×2 (09:31→21:26)
[2019-04-18] MEDS: EFFEXOR XR PO SCH (09:31)
[2019-04-18] MEDS ORDERED: NORCO-5 PO PRN (10:46)
[2019-04-18] MEDS ORDERED: BENADRYL IV PRN (10:51)
[2019-04-18] MEDS: DUONEB (A & A) INH PRN ×2 (11:02→16:25)
[2019-04-18] MEDS: NICODERM PATCH TD PRN (12:46)
--- NOTE | 2019-04-18 13:57 | PROGRESS NOTE ---
DATE: 04/18/2019 SUBJECTIVE: Patient reports feeling fine. Denies any fever or chills. OBJECTIVE: Vitals: Temperature 97.8, heart rate 70, respiratory rate 20, blood pressure 166/68, O2 saturation 96% 2 L nasal cannula. General: This is a chronically ill-appearing, 64-year-old female lying in bed, in no acute distress. Cardiovascular: S1, S2 heard. No murmurs, gallops, or rubs. Regular rate and rhythm. Respiratory: Clear bilaterally to auscultation. No work of breathing or using accessory muscles. Abdomen: Soft, nontender to palpation. Bowel sounds present. No organomegaly. Extremities: The patient has a right inner ankle oozing ulcer. That is also present on the left outer ankle. There is also one on the left mcgovern, ulcer noted as well. Redness and irritation of the bilateral lower extremities consistent with cellulitis. Neurological: Patient alert oriented x3. Moves four extremities. LABORATORY DATA: Reviewed. ASSESSMENT AND PLAN: 1. Failed outpatient treatment for bilateral lower extremity cellulitis. Patient is on daptomycin and aztreonam. Previous cultures of mid mcgovern showed staphylococcal epidermidis and Pseudomonas. Will continue with wound care management. We are trying to send this patient to LTAC considering that this chronic ulceration will require long-term antibiotic therapy. Dr. Diallo with Infectious Disease is following this patient. We will await further recommendations. 2. Peripheral vascular disease. Will continue to monitor. 3. History of seizure. The patient continues with Keppra. 4. Hyperlipidemia. Will continue with home medications. We have stopped statin because of risk of interaction with daptomycin. 5. Chronic obstructive pulmonary disease, on 2 L of oxygen. The patient reports feeling fine. Providing breathing treatments as needed. 6. History of monoclonal gammopathy, followed with Dr. Gudino, aware. They have been consulted. DISPOSITION: We will continue to monitor this patient closely. We will see if this patient is accepted in LTAC. cc: Edinson Hauser MD
--- NOTE | 2019-04-18 20:18 | INFECTIOUS DISEASE PROGRESS NO ---
DATE: 04/18/2019 PRESENT ILLNESS: The patient has bilateral lower extremity cellulitis with wounds that have previously grown Staphylococcus epidermidis and pseudomonas. The patient had failed treatment as an outpatient and she has been admitted to the hospital. MEDICATIONS: Currently, the patient is on a combination of daptomycin and aztreonam. PHYSICAL EXAMINATION: Vital signs: Temperature is 97.6 degrees, pulse 70, respirations 20, blood pressure 166/68. Generally, this is a chronically ill-appearing middle-aged female. She is in no acute distress. Head, eyes, ears, nose, throat: She can hear my spoken words and see near objects.Neck: No pain with movement. Respiratory: Clear lungs. Cardiovascular: Heart rate is regular. There are diminished peripheral pulses. Abdomen: Soft, nontender. Extremities: The patient has been elevating her legs and they are not edematous currently. She does have some small ulcerated areas bilaterally. She does have a brown discoloration of the legs. Neurologic: The patient is awake. She can move her extremities. There is no tremor. LABORATORY DATA: The patient's right ankle is growing a gram-negative denisse. Blood cultures are negative. There is no new lab for today, except the results of cultures. ASSESSMENT AND PLAN: 1. The patient has infected legs. We are treating with antibiotics and we have consulted the wound nurse, Marita. She has given what she feels should be done, and the patient has refused so far to do what Marita has ordered. 2. Comorbidities: The patient is a cigarette smoker and she has chronic obstructive pulmonary disease, anxiety disorder and a seizure disorder. cc: Titi Diallo MD
[2019-04-18] MEDS: CUBICIN 400 MG in NS 100 ML IV SCH (22:50)
[2019-04-19 08:31] LABS: BASO# 0.07 X1000 (0.0-0.2); EOS# 0.44 X1000 (0.0-0.7); EOS% 6.1 % (0.0-10.0); HEMATOCRIT 41.3 % (37.0-47.0); HEMOGLOBIN 13.4 g/dL (12.0-16.0); IMM GRAN# 0.06 X1000 (0.0-0.04); IMM GRAN% 0.8 % (0.0-0.5); LYMPH# 2.35 X1000 (1.2-3.4); LYMPH% 32.6 % (20.5-51.1); MCH 29.5 PG (27-31); MCHC 32.4 g/dL (33-37); MONO# 0.59 X1000 (0.11-0.59); MONO% 8.2 % (1.7-9.3); MPV 9.9 FL (7.4-10.4); NEUT% 51.3 % (42.2-75.2); PLT 306 X1000 (130-400); RBC 4.54 XMIL (4.2-5.4); RDW 14.4 % (11.5-14.5); WBC 7.21 X1000 (4.8-10.8)
[2019-04-19] MEDS: AZACTAM 2 GM in NS 100 ML IV SCH ×2 (09:08→16:12)
[2019-04-19] MEDS: EFFEXOR XR PO SCH (09:08)
[2019-04-19] MEDS: KEPPRA PO SCH (09:09)
[2019-04-19] MEDS: PRINIVIL PO SCH (09:09)
[2019-04-19] MEDS: VITAMIN D PO SCH (09:09)
[2019-04-19] MEDS: SANTYL OINT TOP SCH (09:09)
[2019-04-19] MEDS: LOVENOX SUBQ SCH (09:09)
[2019-04-19 12:33] VITALS: BP 127/67
[2019-04-19] MEDS ORDERED: NS 250 ML ONE (14:37)
[2019-04-19 15:53] LABS: INR 0.98
--- NOTE | 2019-04-19 20:34 | INFECTIOUS DISEASE PROGRESS NO ---
DATE: 04/19/2019 PRESENT ILLNESS: Ms. Moffett has bilateral lower extremity cellulitis which is currently growing pseudomonas and has a second culture with a gram-negative denisse. MEDICATIONS: She is receiving daptomycin 400 mg IV every 24 hours and aztreonam 2 g IV every 8 hours. PHYSICAL EXAM: Vital signs: Temperature is 97.5 degrees, pulse rate 80, respiratory rate 18, blood pressure 127/67, O2 saturation is 100% on 2 L nasal cannula.General: This is a chronically ill- appearing middle-aged female. She is lying in bed, currently in no acute distress. HEENT: Atraumatic, normocephalic. Oral mucous membranes are pink and moist. Conjunctivae are pink. Neck has a decrease in suppleness with a trachea that is midline. Respiratory: Lung sounds are clear to auscultation bilaterally. Diminished in the bases. No work of breathing is noted. Cardiovascular: Heart rate is regular. Abdomen is soft, round and nontender. Bowel sounds are active. Integumentary: Skin is warm and dry, with dressings in place to her bilateral lower extremities, not removed at this time. Neurologic: She is awake, alert and very forgetful. She is having trouble recalling our previous conversations. LABORATORY DATA: Today her white count is 7.21, hemoglobin 13.4, platelet count 306,000. Her right ankle has grown a Pseudomonas aeruginosa which is camargo susceptible, and the left ankle also has a gram-negative denisse growing. Blood cultures have shown no growth after 48 hours. DIAGNOSTIC DATA: No imaging reports today. ASSESSMENT AND PLAN: 1. Ms. Moffett has bilateral lower extremity cellulitis with wounds that are growing a pseudomonas and a gram-negative denisse which has yet to be identified. We will go ahead and discontinue daptomycin due to lack of presence of gram-positive bacteria at this point. We will continue aztreonam as ordered. Unfortunately, the patient has refused to go to long- term acute care, even though arrangements have been made. She had previously talked to me about not wanting antibiotics at home due to concerns about her dogs as well as the cost of the antibiotics. We will go ahead and look into the cost again of the aztreonam. If she is unable to pay for that, since she has refused the long-term acute care she will have to be discharged without antibiotics. Unfortunately, because of her history of seizure disorder she is unable to take oral Levaquin, and the only option for her is the aztreonam. These plans have been discussed with and recommended by Dr. Diallo. 2. Comorbidities for Ms. Moffett include that she is a cigarette smoker with chronic obstructive pulmonary disease, anxiety and seizure disorder, as well as forgetfulness with some cognitive limitations. Dictated by ALLIE Smith for Titi Diallo MD cc: Titi Diallo MD MTDD
--- NOTE | 2019-04-19 21:27 | INFECTIOUS DISEASE PROGRESS NO ---
DATE: 04/19/2019 PRESENT ILLNESS: The patient has Pseudomonas infected bilateral leg cellulitis. Pseudomonas has been isolated for the past month from the legs and before that, one time Staphylococcus epidermidis was isolated. The patient has failed treatment as an outpatient. MEDICATIONS: The patient currently is on aztreonam. PHYSICAL EXAMINATION: Vital Signs: Temperature is 97.5 degrees, pulse 80, respirations 18, blood pressure 127/67. General: This is a chronically ill-appearing, middle-aged female. She is in no acute distress. Head, Eyes, Ears, Nose, Throat: She can hear my spoken words and see near objects. She does not have any white patches on her tongue. Neck: No meningismus. Lungs: Clear to auscultation. Cardiovascular: Heart rate is regular. Abdomen: Soft, nontender. Extremities: Both legs have a brownish and erythematous color on them. There are also some small ulcerated areas where serosanguineous fluid comes out. Neurologic: The patient is alert. She can move her extremities. There is no tremor. LABORATORY STUDIES: CBC with a white count of 7210, hemoglobin 13.4, and platelet count 306,000. Patient's creatinine was 0.5. GFR is greater than 60. The patient's IgG level is 845. Creatinine is 0.5 with a GFR of 60.. ASSESSMENT AND PLAN: We discussed the patient's situation with her. She has agreed to have a peripherally inserted central catheter placed. Once they have the home intravenous antibiotics, she will work out a payment plan with the company that will be supplying the aztreonam. The patient was told what should be done as far as local treatment of her legs. Marita, the wound nurse, went into detail with the patient about topical treatment, but the patient has refused everything she had to say. The patient will be doing her own local wound care because she will not follow what the wound care nurse thinks would be best. The plan is to see the patient back in the office 2 weeks after discharge. COMORBIDITIES: The patient is a cigarette smoker. She has chronic obstructive pulmonary disease, an anxiety disorder, and a seizure disorder. cc: Titi Diallo MD
--- NOTE | 2019-04-20 16:09 | DISCHARGE SUMMARY ---
ADMISSION DATE: 04/16/2019 DISCHARGE DATE: 04/19/2019 DISCHARGE DIAGNOSES: 1. Bilateral lower extremity cellulitis secondary to Pseudomonas infection. 2. Peripheral vascular disease. 3. History of seizure disorder. 4. Hyperlipidemia. 5. Chronic obstructive pulmonary disease, not on any exacerbation. 6. Anxiety/depression disorder. CONSULTATIONS: 1. Dr. Titi Diallo from Infectious Disease. 2. Dr. Gudino from Hematology/Oncology. PROCEDURE: Chest x-ray done on admission showed stable exam, just a small pleural effusion. HOSPITAL COURSE: In brief, this is a patient who was admitted to the hospital as a direct admission from Dr. Diallo' office because of failure of outpatient treatment for bilateral lower extremity cellulitis. She was recently admitted to the hospital for this condition. The patient was admitted and started her on daptomycin and aztreonam, and also because of history of Pseudomonas infection and staphylococcal infection as well. Wound culture revealed Pseudomonas infection. Then, patient continued with aztreonam only. On this patient considering her many allergies, it was basically a challenge to try to provide antibiotics to her. We explored the possibility to LT[facility], who finally decided to take this patient to the hospital for at least 4 weeks, but patient refused to have that option. Also, we offered patient to have home IV antibiotics. delivery sales worker talked with [employer] and she agreed to go with IV antibiotics. In this case, aztreonam 1 g IV q. 8 hours. The patient is going to be discharged in stable condition. She is going to be seen by Dr. Diallo in the office in 20 days. DISCHARGE PHYSICAL EXAMINATION: Vital Signs: Temperature 97.5 degrees, heart rate 80, respiratory rate 18, blood pressure 127/67, O2 saturation 100% on 3 L nasal cannula on room air. General examination: This is a 64-year-old female, lying in bed in no acute distress. Cardiovascular exam: S1, S2 heard. No murmurs, gallops, or rubs. Regular rate and rhythm. Respiratory exam: Clear bilaterally to auscultation. No work of breathing or using accessory muscles. Abdomen: Soft, nontender to palpation. Bowel sounds present. No organomegaly. Extremities: Patient has some ulcerated areas bilaterally. Neurological exam: Patient is alert and oriented x3. Moves 4 extremities. DISCHARGE DISPOSITION: 1. Home to self-care. LIST OF MEDICATIONS: We are not making any changes to her current medications. Antibiotic will be provided by Dr. Titi Diallo. TIME DISCHARGING THIS PATIENT: 39 minutes. FOLLOW-UP: Follow up with Dr. Titi Diallo in 2 weeks. cc: Edinson Hauser MD
== END 2019-04-19 17:50 | disposition home health service (06) | DRG 603 ==
LOC: DIRADM 14:00 → EDIPHOLD 15:51 → 3N 21:56
PROVIDERS: ATTEND Internal Medicine

== ENCOUNTER 2019-06-27 13:43 | Observation (INO) ==
[2019-06-27] MEDS ORDERED: DUONEB (A & A) INH ONE (14:43)
[2019-06-27 14:46] LABS: BASO# 0.06 X1000 (0.0-0.2); BASO% 0.5 % (0.0-0.8); EOS# 0.22 X1000 (0.0-0.7); EOS% 1.8 % (0.0-10.0); HEMATOCRIT 38.6 % (37.0-47.0); IMM GRAN# 0.03 X1000 (0.0-0.04); IMM GRAN% 0.2 % (0.0-0.5); LYMPH# 2.17 X1000 (1.2-3.4); LYMPH% 18.1 % (20.5-51.1); MCH 29.1 PG (27-31); MCHC 31.1 g/dL (33-37); MCV 93.7 FL (81-99); MONO# 1.48 X1000 (0.11-0.59); MONO% 12.3 % (1.7-9.3); MPV 9.8 FL (7.4-10.4); NEUT# 8.06 X1000 (1.4-6.5); NEUT% 67.1 % (42.2-75.2); PLT 306 X1000 (130-400); RBC 4.12 XMIL (4.2-5.4); RDW 13.6 % (11.5-14.5); WBC 12.02 X1000 (4.8-10.8)
--- NOTE | 2019-06-27 14:53 | Diag Imaging Result Doc PS360 ---
EXAM: CHEST-2 VIEWS HISTORY: sob TECHNIQUE: Two views 04/16/2019 COMPARISON: None. FINDINGS: The lungs are hyperexpanded. There is likely scarring in the right middle lobe. Increased AP diameter to the chest. The heart is mildly enlarged. Mild central vascular prominence. No consolidation. Mild compression to a mid thoracic vertebra unchanged from 02/08/2019. There are old bilateral rib fractures. IMPRESSION: Emphysema and likely scarring in the right middle lobe. Electronically signed by Sergio Lennon 06/27/2019 2:51 PM
[2019-06-27 15:00] LABS: INR 0.95; PROTIME 13.1 Seconds (11.0-16.0)
[2019-06-27 15:01] LABS: PTT 32.9 Seconds (22.3-41.8)
[2019-06-27 15:04] LABS: AGAP 14; ALBUMIN 4.5 g/dL (3.5-5.0); ALKALINE PHOSPHATASE 86 U/L (32-104); BUN 11 mg/dL (8-22); CALCIUM 9.5 mg/dL (8.8-10.2); CHLORIDE 93 mmol/L (98-107); CK PROFILE 91 U/L (24-173); COSMO 273; CREATININE 0.4 mg/dL (0.5-0.9); ESTIMATED GFR > 60; GLUCOSE 91 mg/dL (70-104); GOT 24 U/L (10-30); GPT 21 U/L (10-36); POTASSIUM 4.2 mmol/L (3.5-5.1); SODIUM 137 mmol/L (136-145); TCO2 31 mmol/L (25-35); TOTAL PROTEIN 7.4 g/dL (6.3-8.3)
[2019-06-27 15:07] LABS: INFLUENZA A NEGATIVE (NEGATIVE); INFLUENZA B NEGATIVE (NEGATIVE)
[2019-06-27] MEDS ORDERED: SOLU-MEDROL IV ONE (15:48)
--- NOTE | 2019-06-27 16:02 | PROVIDER DOCUMENTATION ---
This chart was entered by Ana Mane Scribe, acting as scribe for Jonas Kumari MD. HPI-General Adult - General Chief Complaint: Shortness of Breath Stated Complaint: SOB - SENT BY DR. HUFF / WOUND CENTER Time Seen by Provider: 06/27/19 14:20 Source: patient Allergies/Adverse Reactions: Patient Allergies Allergy/AdvReac Type Severity Reaction Status Date / Time amoxicillin Allergy Severe ANAPHYLAXIS Verified 06/27/19 13:57 Penicillins Allergy Severe ANAPHYLAXIS Verified 06/27/19 13:57 cephalexin Allergy Unknown Verified 06/27/19 13:57 Home Medications: Home Medication List Medication Instructions Recorded Confirmed Last Taken Type Alprazolam 0.5 mg PO TID 02/01/15 06/17/19 04/16/19 21:00 History Cholecalciferol (Vitamin D3) 5,000 unit PO DAILY 12/23/16 06/17/19 04/16/19 09:00 History [Cholecalciferol] Albuterol Sulfate Inhaler 2 puff INH [id number] PRN 10/10/18 06/17/19 Unknown History [Ventolin Hfa] Venlafaxine HCl [Effexor Xr] 150 mg PO DAILY 12/28/18 06/17/19 04/16/19 09:00 History Albuterol 2.5MG/Ipratrop 0.5MG 3 ml INH RTQ6H PRN 04/03/19 06/17/19 Unknown History [Duoneb (A & A)] LISINOpril [Prinivil] 10 mg PO DAILY 04/03/19 06/17/19 04/16/19 09:00 History Levetiracetam [Keppra] 250 mg PO QHS 04/03/19 06/17/19 04/16/19 21:00 History Levetiracetam [Keppra] 500 mg PO DAILY 04/03/19 06/17/19 04/16/19 09:00 History ATORVAstatin [Lipitor] 20 mg PO QHS 04/16/19 06/17/19 04/15/19 20:00 History Tramadol [Ultram] 50 mg PO Q8HR #9 tab 06/17/19 Unknown Rx - History of Present Illness -Gen Adult Nature of Presenting Problems: Patient is a 64 year old female who presents to the ED from the wound care center. States she has been having flu like symptoms for 2 days. Reports symptoms of generalized body aches, weakness and cough. Denies nausea and vomiting. Location of Pain/Injury: reports: generalized Pain Radiation: reports: no radiation Quality of Pain: reports: aching Severity: reports: mild Onset/Duration: reports: 2 days ago Timing: reports: still present Context/Activities at Onset: reports: light activity Associated Symptoms: reports: cough, weakness Similar Symptoms Previously?: Yes Recently seen or treated by another doctor?: No Review of Systems - Adult - REVIEW OF SYSTEMS - ADULT Constitutional: reports: no symptoms reported. denies: chills, fever, fatique Eyes: reports: no symptoms reported Ears, Nose, Mouth & Throat: reports: no symptoms reported Cardiovascular: reports: no symptoms reported Respiratory: reports: see HPI, cough. denies: shortness of breath, wheezing Gastrointestinal: reports: no symptoms reported. denies: abdominal pain, nausea, vomiting Genitourinary: reports: no symptoms reported Musculoskeletal: reports: see HPI, muscle aches, muscle weakness. denies: back pain, neck pain Integumentary: reports: no symptoms reported Neurological: reports: no symptoms reported Psychiatric: reports: no symptoms reported Endocrine: reports: no symptoms reported Hematologic/Lymphatic: reports: no symptoms reported Allergic/Immunologic: reports: no symptoms reported All Other Systems: Reviewed and Negative Past History - Adult - PAST MEDICAL HISTORY-ADULT Review of Records: reports: Old Records Reviewed, Nursing Assessment Review, Medications Reviewed, Social history reviewed & non-contributory. Major Childhood Illnesses: reports: history unknown Cardiovascular: reports: blood clots, HTN, hyperlipidemia Respiratory: reports: COPD Gastrointestinal: reports: denies history Obstetrical/Gynecological: reports: denies history Genitourinary: reports: denies history Musculoskeletal: reports: denies history Neurological: reports: CVA, Seizures/Epilepsy, TIA Psychiatric: reports: anxiety, depression, psychiatric problems, other (panic) Endocrine/Immune: reports: denies history Other Conditions: reports: denies history - PRIOR SURGERIES/PROCEDURES Surgical/Procedure History: reports: reviewed, not pertinent, other (vascular surgery) - IMMUNIZATION STATUS Childhood Immunizations: See Nurse Assessment Flu Vaccine: See Nurse Assessment - FAMILY HISTORY Family History: reviewed, not pertinent - SOCIAL HISTORY Smoking: cigarettes, less than 1 pack/day Provider spent 3-5 mins advising pt. on dangers of tobacco.: Discussed manners to quit use, and f/u contacts for add'l counseling. Substance Use: alcohol Alcohol Use Frequency: occasionally Physical Exam-General - PHYSICAL EXAM-ADULT Initial Vital Signs Reviewed: Yes - CONSTITUTIONAL General Appearance: alert, no apparent distress. negative: lethargic - HEAD, EARS, NOSE, MOUTH & THROAT HENMT: normocephalic/atraumatic, moist mucous membranes. negative: pharyngeal erythema - RESPIRATORY Respiratory: chest non-tender, rales (left base). negative: respiratory distr ess, increased rate - CARDIOVASCULAR Cardiovascular: normal peripheral pulses, regular rate, rhythm. negative: tachycardia - MUSCULOSKELETAL Extremity: non-tender, other (wound dressings to bilateral ankles). negative: deformity - SKIN Integumentary: normal color, normal turgor, warm/dry. negative: cyanosis, rash - NEUROLOGIC Neurologic: grossly normal. negative: aphasia, facial droop - PSYCHIATRIC Psych/Mental Status: normal mood/affect, oriented x 3. negative: anxious Progress - PLAN OF CARE/RESULTS Progress/Plan/Lab Results: Vital Signs - 8 hr 06/27/19 13:51 Temperature 97.7 F Pulse Rate 92 H Respiratory Rate 24 Blood Pressure 151/76 O2 Sat by Pulse Oximetry 92 L Orders Category Date Time Status Cardiac Monitoring DIRECTED Care 06/27/19 13:59 Active Oxygen Therapy- ED Nursing DIRECTED Care 06/27/19 13:59 Active Saline Loc NOW Care 06/27/19 13:59 Active CHEST-2 VIEWS [RAD] Stat Exams 06/27/19 13:59 Ordered BLOOD CULTURE [BLDCUL] Stat Lab 06/27/19 14:00 Uncollected CBC WITH ELECTRONIC DIFF [HEME] Stat Lab 06/27/19 14:31 Ordered CK PROFILE [SP CHEM] Stat Lab 06/27/19 14:31 Ordered COMPREHENSIVE METABOLIC PANEL [CHEM] Stat Lab 06/27/19 14:[address] Stat Lab 06/27/19 14:32 Ordered LACTATE, PLASMA [CHEM] Stat Lab 06/27/19 14:31 Ordered PRO B-NATRIURETIC PEPTIDE Stat Lab 06/27/19 14:31 Ordered PROTIME WITH INR [COAG] Stat Lab 06/27/19 14:31 Ordered PTT [COAG] Stat Lab 06/27/19 14:31 Ordered TROPONIN T Stat Lab 06/27/19 14:31 Ordered CP/SOB/Palp >45 yrs of Age Stat Oth 06/27/19 13:59 Ordered EKG [EKG] Stat Ther 06/27/19 13:59 Ordered Result Diagrams: 06/27/19 14:30 06/27/19 14:30 - REASSESSMENT Reassessment #1 Time Reassessed: 15:45 Status: unchanged (still breathing 45-50/min and p ox dips to 88 when speaking on 3 liters nasal O2) - EKG 1 Time of EKG reading by physician:: 15:20 EKG Read and Signed by:: Jonas Kumari EKG Interpretation (*Must complete 3 of following elements*): Abnormal (possible inferior infract, age undetermined) Rate: 89 Rhythm: normal sinus rhythm Rufe: normal QRS: RBB SC Interval: normal Comments: possible left atrial enlargement; - XRAY 1 XRAY Study: Chest Impression: See EMR Report ( EXAM: CHEST-2 VIEWS HISTORY: sob TECHNIQUE: Two views 04/16/2019 COMPARISON: None. FINDINGS: The lungs are hyperexpanded. There is likely scarring in the right middle lobe. Increased AP diameter to the chest. The heart is mildly enlarged. Mild central vascular promi nence. No consolidation. Mild compression to a mid thoracic vertebra unchanged from 02/08/2019. There are old bilateral rib fractures. IMPRESSION: Emphysema and likely scarring in the right middle lobe. Electronically signed by Sergio Lennon 06/27/2019 2:51 PM 06/27/19 1451 Interpreting Physician: Sergio Lennon MD Dictated Date/Time: 06/27/19 1449 cc: Jonas Kumari MD; Jose Alfredo Ross) - CONSULTS/PCP/HOSPITALIST Notification #1 *Consult/PCP/Hospitalist*: Dr. Yang paged at 1535 Time Discussed: 15:38 Reason/Comments: Dr. Kumari consulted with ALLIE Rios for Hospitalist Consult Disposition: Will see in ED, Admit Departure - Departure Date of Disposition Decision: 06/27/19 Time of Disposition Decision: 15:36 DIAGNOSIS: Hypoxia, COPD exacerbation, Respiratory distress Disposition: ADMITTED INPATIENT 09 Certified Medical Emergency: Emergent Condition: Fair Referrals and Follow-Ups: Jose Alfredo Ross [Primary Care Provider] - - Critical Care Note This patient required my direct & personal management of CC.: No Attestation - Physician/ JONO Attestation The physician spent face to face time with patient:: Yes Advanced Practice Provider documentation review:: Supervising physician onsite and consulted in the evaluation and care of this patient. The physician did have a face to face encounter with the patient. This chart was documented by the indicated scribe, (Ana Mane Scribe) and accurately reflects the services I performed and decisions made by me, Jonas Kumari MD, as attested by the provider's signature.
[2019-06-27] MEDS: AZACTAM 1 GM in NS 50 ML IV SCH (16:20)
[2019-06-27] MEDS ORDERED: NS 1,000 ML IV SCH (17:17)
[2019-06-27] MEDS ORDERED: TYLENOL PO PRN (17:17)
[2019-06-27] MEDS ORDERED: ZOFRAN IV PRN (17:17)
--- NOTE | 2019-06-27 17:36 | EKG Report ---
Test Performed on : 06/27/2019 3:20:35 PM Test Reason : sob Blood Pressure : / mmHG Vent. Rate : 089 BPM Atrial Rate : 089 BPM P-R Int : 160 ms QRS Dur : 144 ms QT Int : 394 ms P-R-T Axes : 064 083 047 degrees QTc Int : 479 ms Normal sinus rhythm. Possible Left atrial enlargement Right bundle branch block Possible Inferior infarct (cited on or before 01-FEB-2015) Abnormal ECG When compared with ECG of 16-APR-2019 18:19, No significant change was found Unconfirmed Result
[2019-06-27] MEDS ORDERED: LOVENOX SUBQ SCH (18:00)
[2019-06-27] MEDS: DUONEB (A & A) INH SCH ×2 (19:59→23:02)
[2019-06-27] MEDS ORDERED: KEPPRA PO SCH (21:00)
[2019-06-27] MEDS ORDERED: LIPITOR PO SCH (21:00)
[2019-06-27] MEDS: ULTRAM PO SCH (22:05)
[2019-06-27] MEDS: XANAX PO SCH (22:05)
--- NOTE | 2019-06-27 22:28 | HISTORY AND PHYSICAL ---
PRIMARY CARE PROVIDER: Jose Alfredo Ross M.D. PRIMARY LEAD ELECTRICAL CONTROLS ENGINEER: Lee Gudino MD PRIMARY INFECTIOUS DISEASE PHYSICIAN: Titi Diallo MD CHIEF COMPLAINT: Shortness of breath and ortez to yellow phlegm. HISTORY OF PRESENT ILLNESS: Ms. Mariia Moffett is a 64-year-old female with a medical history of seizure disorder, last one being over a year ago, hypertension, hyperlipidemia, COPD on 3 L of oxygen at home, anxiety, depression and MGUS and Dr. Gudino follows her that. She is here with complaints of shortness of breath. She went to the wound clinic where they found her to be breathing at least 50 times a minute, was sent here, was given a nebulizer. Imaging does not reveal any type of pneumonia, but she is coughing up ortez to yellow phlegm. She states she has had the symptoms for at least 2 days. She also says she has been on an antibiotic for a month for UTI. She does not seem to be completely oriented. She seems to have maybe confused statements, but she is currently stable. We will admit overnight, give her antibiotics, steroids, nebulizers. Maybe she will be able to go home tomorrow. PAST MEDICAL HISTORY: 1. Seizure disorder with the last 1 being over a year ago. 2. Hypertension. 3. Hyperlipidemia. 4. COPD on 3 L nasal cannula. 5. Anxiety. 6. Depression. 7. History of left arm fracture. 8. MGUS. 9. Chronic bilateral ankle, poor healing ulcerations. SURGICAL HISTORY: 1. I and D of the left ulnar styloid fracture and ORIF of the distal radius fracture. 2. Bone marrow aspiration 2016. SOCIAL HISTORY: Pack per day since the age of 20. Stopped alcohol in 2014. No illicit drug use, retired, lives alone. She is active. FAMILY HISTORY: On mother's side of family, [place], hypertension, stroke. Father's side is hypertension. ALLERGIES: Amoxicillin, penicillin, and cephalexin. HOME MEDICATIONS: Have not yet been reconciled but was listed as Keppra, Lipitor, Xanax, vitamin D3, albuterol, Atrovent, Effexor, lisinopril, Ultram. REVIEW OF SYSTEMS: Fourteen-point review of systems are complete, and all were negative except for those mentioned above in HPI. PHYSICAL EXAMINATION: VITAL SIGNS: Temperature 97.7 degrees, heart rate 92, respiratory rate 14, blood pressure 151/76, O2 saturation 93% on 3 L nasal cannula. Originally, she had started out in the 80s on 3 L before the breathing treatment. GENERAL: Ms. Mariia Moffett is a 64-year-old female. She is in no acute distress. She is able to answer some questions appropriately. HEENT: Atraumatic, normocephalic. Pupils equal, round, reactive to light. Extraocular movements intact. Mucous membranes are dry. NECK: Trachea midline. CARDIOVASCULAR: S1, S2. Regular rate and rhythm. No rubs, gallops, murmurs. No lower extremity edema. +1 dorsalis and pedal pulses, +2 radial pulses. Negative JVD or carotid bruits. PULMONARY: Mild expiratory wheezes, very fine, decreased in the bases. No accessory muscle use or work of breathing noted. She is tolerating 3 L nasal cannula. GASTROINTESTINAL: Soft, nontender, nondistended. Positive bowel sounds x4. EXTREMITIES: Decreased range of motion. Equal strength bilaterally. SKIN: Warm, dry and she has dressings around bilateral ankle wounds. She has very poor discoloration in all extremities LABORATORY DATA: White blood cells 12,000, hemoglobin 12, hematocrit 38, platelet count 306. INR is 0.95, PTT is 32.9. Sodium 137, potassium 4.2, BUN 11, creatinine 0.4, glucose 91, calcium 9.5, bilirubin 0.50, AST 24, ALT 21, CK 91, troponin less than 0.01. ProBNP 323. Albumin 4.5, lactate 0.7. Flu negative. IMAGING: Chest x-ray: Emphysema, scarring in the right middle lobe. ASSESSMENT AND PLAN: 1. Chronic obstructive pulmonary disease exacerbation already starting to improve, nebulizers, steroids and antibiotics. 2. Could be bronchitis. There is no pneumonia. She is coughing up discoloration in her phlegm. It is yellow to ortez, but she will be on antibiotics. 3. History of seizure disorder. We will continue on the Keppra. 4. Hypertension. Continue home medications. 5. Hyperlipidemia. Continue home medications. 6. Monoclonal gammopathy of undetermined significance. She is followed by Dr. Gudino as an outpatient for that. 7. Bilateral lower extremity poor healing wounds, followed by Dr. Diallo as an outpatient. Has not been on any antibiotics. We will consult Wound Care. 8. Tobacco abuse. Cessation discussed. 9. Deep venous thrombosis prophylaxis. Lovenox. Dictated by ALLIE Emery for Edinson Hauser MD Addendum: Patient seen and examined by myself. Agree with ALLIE note. It reflects my assessment and plan. Patient is being admitted to hospital for COPD exacerbation. Will provide IV antibiotics and Duoneb q4hrs. If she improves she can be discharged tomorrow. cc: ALLIE Emery MD [facility]
[2019-06-28] MEDS: AZACTAM 1 GM in NS 50 ML IV SCH ×2 (00:59→09:23)
[2019-06-28] MEDS: SOLU-MEDROL IV SCH ×2 (00:59→09:24)
[2019-06-28] MEDS: DUONEB (A & A) INH SCH ×3 (03:21→11:38)
[2019-06-28 06:21] LABS: AGAP 11; BUN 14 mg/dL (8-22); CALCIUM 9.3 mg/dL (8.8-10.2); CHLORIDE 97 mmol/L (98-107); COSMO 277; CREATININE 0.4 mg/dL (0.5-0.9); ESTIMATED GFR > 60; GLUCOSE 172 mg/dL (70-104); POTASSIUM 4.2 mmol/L (3.5-5.1); SODIUM 136 mmol/L (136-145); TCO2 29 mmol/L (25-35)
[2019-06-28] MEDS: ULTRAM PO SCH (06:23)
[2019-06-28 06:27] LABS: BASO# 0.01 X1000 (0.0-0.2); BASO% 0.1 % (0.0-0.8); HEMATOCRIT 36.7 % (37.0-47.0); HEMOGLOBIN 11.3 g/dL (12.0-16.0); IMM GRAN# 0.02 X1000 (0.0-0.04); IMM GRAN% 0.2 % (0.0-0.5); LYMPH# 0.97 X1000 (1.2-3.4); LYMPH% 11.4 % (20.5-51.1); MCH 28.5 PG (27-31); MCHC 30.8 g/dL (33-37); MCV 92.4 FL (81-99); MONO# 0.21 X1000 (0.11-0.59); MONO% 2.5 % (1.7-9.3); MPV 10.2 FL (7.4-10.4); NEUT# 7.29 X1000 (1.4-6.5); NEUT% 85.8 % (42.2-75.2); PLT 289 X1000 (130-400); RBC 3.97 XMIL (4.2-5.4); RDW 13.4 % (11.5-14.5)
[2019-06-28 07:15] VITALS: BP 145/62
[2019-06-28 08:03] LABS: LYMPHS 13 % (21-51); MONO 2 % (1-9); SEGS 85 % (42-75)
[2019-06-28] MEDS ORDERED: PRILOSEC PO SCH (09:00)
[2019-06-28] MEDS ORDERED: KEPPRA PO SCH (09:00)
[2019-06-28] MEDS ORDERED: EFFEXOR XR PO SCH (09:00)
[2019-06-28] MEDS ORDERED: VITAMIN D PO SCH (09:00)
[2019-06-28] MEDS: PRINIVIL PO SCH ×2 (09:24→09:26)
[2019-06-28] MEDS: XANAX PO SCH (09:25)
--- NOTE | 2019-06-29 15:53 | DISCHARGE SUMMARY ---
ADMISSION DATE: 06/27/2019 DISCHARGE DATE: 06/28/2019 ADMISSION DIAGNOSES: 1. Chronic obstructive pulmonary disease exacerbation. 2. Possible bronchitis. 3. History of seizure disorder. 4. Hypertension. 5. Hyperlipidemia. 6. Monoclonal gammopathy of undetermined significance. 7. Bilateral lower extremity poor healing wound. 8. Tobacco abuse. DISCHARGE DIAGNOSES: 1. Chronic obstructive pulmonary disease exacerbation. 2. Possible bronchitis. 3. History of seizure disorder. 4. Hypertension. 5. Hyperlipidemia. 6. Monoclonal gammopathy of undetermined significance. 7. Bilateral lower extremity poor healing wound. 8. Tobacco abuse. CONSULTATIONS: None. SURGERIES AND PROCEDURES: None. HOSPITAL COURSE: Ms. Mariia Moffett is a 64-year-old female, looks much older than her stated age, presented from wound clinic. She was getting her ankles wrapped where she has nonhealing ulcers. Presented with COPD exacerbation. She remained on 3 L of oxygen that she uses at home, but she received breathing treatments that were nebulized. She also got steroids and antibiotic therapy while she was here. She was coughing up ortez-colored to yellow-colored phlegm, although she was negative for pneumonia. She remains stable and she is going to be discharged. DISCHARGE VITAL SIGNS: Temperature 97.8 degrees, heart rate 69, respiratory rate 16, blood pressure 145/62, O2 saturation 94 to 95% on 3 L. DISCHARGE LAB DATA: White blood cells 8,000, hemoglobin 11, hematocrit 36, platelet count 289,000. Sodium 136, potassium 4.2, BUN 14, creatinine 0.4, glucose 172, calcium 9.3. Influenza negative. Blood cultures prelim negative. IMAGING: Chest x-ray: Emphysema and scarring in the right middle lobe. DISCHARGE MEDICATIONS: 1. Prednisone Dosepak. 2. Levaquin for 10 days. 3. Albuterol Atrovent nebulizers every 4 hours p.r.n. 4. Venlafaxine 150 mg p.o. daily. 5. Ultram 50 mg p.o. q.8 hours p.r.n. 6. Losartan 100 mg p.o. daily. 7. Keppra 500 mg p.o. daily. 8. Amlodipine 10 mg p.o. daily. 9. Xanax 0.5 mg p.o. t.i.d. PHYSICIAN FOLLOW UP: Primary care provider, Dr. Jose Alfredo Ross. DISCHARGE DIET: Regular heart healthy. DISCHARGE ACTIVITY: As tolerated. DISCHARGE INSTRUCTIONS: If your condition changes, contact physician and/or return to the emergency department. Changes may include, but not limited to shortness of breath, increased fatigue, excessive bleeding, unexplained weight loss or gain, unmanageable pain, signs or symptoms of infection. Resume home medications. Take all medications as prescribed. Call and make follow- up appointment with your primary care provider. If your symptoms do not improve or become worse, come to the emergency department. Call the office with any questions or concerns. DISCHARGE DISPOSITION: Home. Dictated by ALLIE Emery for Edinson Hauser MD Addendum: Patient seen and examined by myself. Agree with ALLIE note. It reflects my assessment and plan. Patient is being discharged in stable condition. Follow up with PCP in a week. cc: ALLIE Emery MD MTDD
== END 2019-06-28 12:00 | disposition home health service (06) ==
LOC: P.ED 13:43 → P.MEDSURG 13:43
PROVIDERS: ATTEND Internal Medicine

== ENCOUNTER 2019-09-11 22:23 | Inpatient (IN) ==
[2019-09-11] MEDS ORDERED: NS 1,000 ML IV ONE (22:57)
--- NOTE | 2019-09-11 22:57 | PROVIDER DOCUMENTATION ---
HPI-General Adult - General Chief Complaint: Altered Mental Status Stated Complaint: AMS Time Seen by Provider: 09/11/19 22:30 Source: patient Allergies/Adverse Reactions: Patient Allergies Allergy/AdvReac Type Severity Reaction Status Date / Time amoxicillin Allergy Severe ANAPHYLAXIS Verified 08/16/19 13:30 Penicillins Allergy Severe ANAPHYLAXIS Verified 08/16/19 13:30 cephalexin Allergy Unknown Verified 08/16/19 13:30 Home Medications: Home Medication List Medication Instructions Recorded Confirmed Last Taken Type Levetiracetam [Keppra] 500 mg PO DAILY 04/03/19 08/16/19 04/16/19 09:00 History Losartan Potassium 1 tab PO DAILY 06/27/19 08/16/19 Unknown History Silver Sulfadiazine [Silvadene] 1,000 gm TOPICAL BID #1 cream..g. 08/16/19 Unkn own Rx Venlafaxine HCl [Venlafaxine HCl 1 tab PO DAILY 08/16/19 08/16/19 Unknown History ER] - History of Present Illness -Gen Adult Nature of Presenting Problems: 64 yof presents via EMS for AMS. She has been seen today at [facility] for the same. She is antibiotics for UTI. She has multiple open wounds on the LE. She is alert, oriented to person and time. She appears unkempt, the dressings on her wounds are soiled. It is also noted that she has a bottle of xanax 0.25mg x 60 filled on 09/07/18 with 3 tablets noted to now be in the bottle. The patient denies knowing where they went. She is unable to verify testing performed today at [facility]. She lives alone and no family is with the patient. She is on Keppra, unsure if patient is taking any of her medications appropriately Location of Pain/Injury: reports: lower extremity Pain Radiation: reports: no radiation Quality of Pain: reports: none Severity: reports: moderate Onset/Duration: reports: unsure Timing: reports: still present Context/Activities at Onset: reports: none Modifying Factors: improves with: nothing Associated Symptoms: reports: other (AMS) Similar Symptoms Previously?: No Recently seen or treated by another doctor?: No Review of Systems - Adult - REVIEW OF SYSTEMS - ADULT Constitutional: reports: no symptoms reported. denies: see HPI, chills, fever, fatique, night sweats, weight gain, weight loss, other Eyes: reports: no symptoms reported. denies: see HPI, discharge, dry eyes, decreased vision, blurred vision, double vision, eye pain, redness, other Ears, Nose, Mouth & Throat: reports: no symptoms reported. denies: see HPI, ear discharge, ear pain, hearing loss, tinnitus, epistaxis, sinus problem, nose pain, loose teeth, mouth/dental pain, mouth swelling, hoarseness, throat pain, throat swelling, other Cardiovascular: reports: no symptoms reported. denies: see HPI, chest pain, edema, heart murmur, irregular heart rate, orthopnea, palpitations, poor circulation, PND, syncope, other Respiratory: reports: no symptoms reported. denies: see HPI, chronic cough, cough, dyspnea on exertion, excessive sputum production, hemoptysis, pleurisy, shortness of breath, wheezing, other Gastrointestinal: reports: no symptoms reported. denies: see HPI, abdominal pain, hematemesis, constipation, diarrhea, difficulty swallowing, frequent heartburn, nausea, poor appetite, rectal bleeding, vomiting, other Genitourinary: reports: see HPI, dysuria, frequent UTI's. denies: no symptoms reported, discharge, frequency, flank pain, hematuria, hesitency, incontinence, urinary retention, urgency, other Musculoskeletal: reports: see HPI. denies: no symptoms reported, bone pain, back pain, frequent leg cramps, joint pain, joint swelling, muscle aches, muscle weakness, neck pain, other Integumentary: reports: see HPI (wounds to BLE with dirty dressings intact, yellow drainge present, foul odor). denies: no symptoms reported, hives, hair loss, itching, mole changes, nail changes, rash, skin sores/ulcer, skin thickening, other Neurological: reports: see HPI. denies: no symptoms reported, ataxia, dizziness/vertigo, headache/migraines, loss of balance, numbness, paresthesia, seizure, slurred speech, syncope, tremors, other Psychiatric: reports: no symptoms reported. denies: see HPI, anxiety, anti-depressant use, alcohol/drug dependence, depression, emotional problems, insomnia, panic attacks, suicidal thoughts, other Endocrine: reports: no symptoms reported. denies: see HPI, change in skin pigment, excessive sweating, goiter, cold intolerance, heat intolerance, increased hunger, increased thirst, polyuria, other Hematologic/Lymphatic: reports: no symptoms reported. denies: see HPI, blood clots, easy bruising, low blood count, lymphedema, prolonged bleeding, swollen lymph nodes, transfusions, other Allergic/Immunologic: reports: no symptoms reported. denies: see HPI, allergic reactions, allergic rhinitis, asthma, eczema, food allergy, frequent infections, hay fever, hives, positive PPD, urticaria, other Past History - Adult - PAST MEDICAL HISTORY-ADULT Review of Records: reports: Old Records Reviewed, Nursing Assessment Review, Social history reviewed & non-contributory. Major Childhood Illnesses: reports: history unknown Cardiovascular: reports: blood clots, HTN, hyperlipidemia Respiratory: reports: COPD Gastrointestinal: reports: denies history Obstetrical/Gynecological: reports: denies history Genitourinary: reports: denies history Musculoskeletal: reports: denies history Neurological: reports: Seizures/Epilepsy Psychiatric: reports: anxiety, depression, psychiatric problems, other (panic) Endocrine/Immune: reports: denies history Other Conditions: reports: denies history - PRIOR SURGERIES/PROCEDURES Surgical/Procedure History: reports: reviewed, not pertinent, other (vascular surgery) - IMMUNIZATION STATUS Childhood Immunizations: See Nurse Assessment Flu Vaccine: See Nurse Assessment - FAMILY HISTORY Family History: reviewed, not pertinent Physical Exam-General - PHYSICAL EXAM-ADULT Initial Vital Signs Reviewed: Yes - CONSTITUTIONAL General Appearance: alert, no apparent distress, slow to respond - EYES Eyes: PERRL/EOMI, pink conjunctivae - HEAD, EARS, NOSE, MOUTH & THROAT HENMT: normocephalic/atraumatic. negative: moist mucous membranes (dry) - NECK Neck: non-tender, full range of motion, supple - RESPIRATORY Respiratory: chest non-tender, lungs clear, normal breath sounds, no pleuratic chest pain, no respiratory distress, no accessory muscle use - CARDIOVASCULAR Cardiovascular: normal peripheral pulses, regular rate, rhythm, no edema, no gallop, no JVD, no murmur - GASTROINTESTINAL (ABDOMEN) Abdominal Exam: normal bowel sounds, non tender, soft, no organomegaly, no pulsatile mass - LYMPHATIC Lymphatic: no adenopathy - MUSCULOSKELETAL Back Exam: normal inspection, no CVA tenderness, no vertebral tenderness Extremity: swelling (B ankles), tenderness (B ankles), other (wounds). negative: normal gait, normal inspection Peripheral Pulses: radial (R): 2+, radial (L): 2+ - SKIN Integumentary: normal color, normal turgor, warm/dry - NEUROLOGIC Neurologic: grossly normal. negative: aphasia, facial droop, focal weakness, motor weakness - PSYCHIATRIC Psych/Mental Status: normal mood/affect, disheveled, other (oriented to person and time only, not place or situation) Progress - PLAN OF CARE/RESULTS Progress/Plan/Lab Results: Vital Signs - 8 hr 09/11/19 22:30 Temperature 98.4 F Pulse Rate 75 Respiratory Rate 18 Blood Pressure 111/66 O2 Sat by Pulse Oximetry 95 Laboratory Results - last 24 hr 09/11/19 22:48 POC Glucose 80 Orders Category Date Time Status FSBS [Finger Stick Blood Sugar (ED)] DIRECTED Care 09/11/19 22:30 Active CHEST-PORTABLE [RAD] Stat Exams 09/11/19 22:30 Ordered ABG [RESP] Routine Lab 09/11/19 22:30 Ordered AMMONIA [CHEM] Stat Lab 09/11/19 22:40 Received BLOOD CULTURE [BLDCUL] Stat Lab 09/11/19 22:29 Ordered CBC WITH ELECTRONIC DIFF [HEME] Stat Lab 09/11/19 22:40 Results COMPREHENSIVE METABOLIC PANEL [CHEM] Stat Lab 09/11/19 22:40 Received LACTATE, PLASMA [CHEM] Stat Lab 09/11/19 22:40 Received UA NIMS W/REFLEX CULT [URINALYSIS] Stat Lab 09/11/19 22:29 Uncollected URINE DRUG SCREEN PL Stat Lab 09/11/19 22:29 Uncollected EKG [EKG] Stat Ther 09/11/19 22:29 Ordered Previous wound cx: pseudomonas 04/2019 0030: Pt admits to taking "extra xanax because the doctor wrote it wrong". Result Diagrams: 09/11/19 22:40 09/11/19 22:40 - XRAY 1 XRAY Study: Chest Impression: See EMR Report (Scarring, Emphysema- Dr Murray/Chasidy KELLEY) - CT/MRI 1 CT Study: Head Impression: See EMR Report (chronic changes without acute intracranial process Roscoe Meza MD- real rad) - CONSULTS/PCP/HOSPITALIST Notification #1 *Consult/PCP/Hospitalist*: Dr. Akins 0001 Time Discussed: 00:01 Consult Disposition: Admit Departure - Departure Date of Disposition Decision: 09/12/19 Time of Disposition Decision: 00:30 DIAGNOSIS: Hypoxia, Altered mental status, Overdose Disposition: ADMITTED INPATIENT 09 Certified Medical Emergency: Emergent Condition: Stable Referrals and Follow-Ups: Jose Alfredo Ross [Primary Care Provider] - - Critical Care Note This patient required my direct & personal management of CC.: No Attestation - Physician/ JONO Attestation Patient care was provided by Advanced Practice Provider:: Yes Advanced Practice Provider:: Rosa Santos Advanced Practice Provider documentation review:: The Mid-level provider mylaum entation, treatment plan and medical decision making was reviewed by the physician who agrees with all treatment and medical decision making by the MLP. The physician spent face to face time with patient:: No Advanced Practice Provider documentation review:: Supervising physician onsite and consulted in the evaluation and care of this patient. The physician did not have a face to face encounter with the patient.
[2019-09-11 22:59] LABS: BASO# 0.05 X1000 (0.0-0.2); BASO% 0.5 % (0.0-0.8); EOS# 0.34 X1000 (0.0-0.7); EOS% 3.6 % (0.0-10.0); HEMATOCRIT 39.4 % (37.0-47.0); HEMOGLOBIN 12.6 g/dL (12.0-16.0); IMM GRAN# 0.03 X1000 (0.0-0.04); IMM GRAN% 0.3 % (0.0-0.5); LYMPH# 2.25 X1000 (1.2-3.4); LYMPH% 23.7 % (20.5-51.1); MCH 28.4 PG (27-31); MCV 88.9 FL (81-99); MONO# 0.91 X1000 (0.11-0.59); MONO% 9.6 % (1.7-9.3); MPV 9.7 FL (7.4-10.4); NEUT% 62.3 % (42.2-75.2); PLT 329 X1000 (130-400); RBC 4.43 XMIL (4.2-5.4); RDW 13.5 % (11.5-14.5); WBC 9.48 X1000 (4.8-10.8)
[2019-09-11 23:00] LABS: BE 6.9 mmoll (-3.0-3.0); BLOOD TYPE ARTERIAL; HCO3-(ACT) 30.1 mmoll (20.0-26.0); METHB 1.5 % (0.0-1.5); O2(CT) 16.6 mL/dL (15.0-23.0); PCO2(98.6) 49 mmHg (35-45); PO2(98.6) 57 mmHg (60-100); SAMPLE BLOOD; SAO2 94.5 % (95.0-100.0); THB 13.4 g/dL (11.5-17.4); pH(98.6) 7.43 (7.35-7.45)
[2019-09-11 23:07] LABS: AGAP 10; ALBUMIN 4.1 g/dL (3.5-5.0); ALKALINE PHOSPHATASE 73 U/L (32-104); BUN 10 mg/dL (8-22); CALCIUM 9.6 mg/dL (8.8-10.2); CHLORIDE 94 mmol/L (98-107); COSMO 267; CREATININE 0.5 mg/dL (0.5-0.9); ESTIMATED GFR > 60; GLUCOSE 86 mg/dL (70-104); GOT 20 U/L (10-30); GPT 17 U/L (10-36); POTASSIUM 3.8 mmol/L (3.5-5.1); SODIUM 134 mmol/L (136-145); TCO2 30 mmol/L (25-35); TOTAL PROTEIN 7.5 g/dL (6.3-8.3)
[2019-09-11 23:07] LABS: MODALITY CANNULA; O2HB 88.2 % (95.0-99.0)
[2019-09-11 23:08] LABS: ALLEN TEST YES
[2019-09-11 23:46] LABS: ACETAMINOPHEN < 1.2 ug/mL (10-30)
--- NOTE | 2019-09-12 00:03 | EKG Report ---
Test Performed on : 09/11/2019 11:51:15 PM Test Reason : AMS Blood Pressure : / mmHG Vent. Rate : 066 BPM Atrial Rate : 066 BPM P-R Int : 162 ms QRS Dur : 154 ms QT Int : 442 ms P-R-T Axes : 065 049 041 degrees QTc Int : 463 ms Normal sinus rhythm. Right bundle branch block Inferior infarct (cited on or before 01-FEB-2015) Abnormal ECG When compared with ECG of 27-JUN-2019 15:20, (Unconfirmed) No significant change was found Unconfirmed Result
[2019-09-12 00:04] LABS: URINE SOURCE CATH
[2019-09-12 00:08] LABS: BILIRUBIN URINE NEGATIVE (NEGATIVE); BLOOD URINE NEGATIVE (NEGATIVE); COLOR YELLOW; GLUCOSE URINE NEGATIVE (NEGATIVE); KETONE URINE NEGATIVE (NEGATIVE); LEUKOCYTES URINE NEGATIVE (NEGATIVE); NITRITE URINE NEGATIVE (NEGATIVE); PH URINE 6.5; PROTEIN URINE NEGATIVE (NEGATIVE); SP GRAVITY URINE 1.014; TURBIDITY URINE CLEAR (CLEAR); UROBILINOGEN URINE NORMAL (NORMAL)
[2019-09-12 00:09] LABS: UR EPITHELIAL CELLS <10 /HPF (<10); URINE BACTERIA NEGATIVE /HPF; URINE RBC <10 /HPF (<10); URINE WBC <10 /HPF (<10)
[2019-09-12 00:20] LABS: UR AMPHETAMINES QUAL NONE DETECTED (NONE DETECT); UR BARBITUATES QUAL NONE DETECTED (NONE DETECT); UR BENZODIAZEPIN QUAL PRESUMPTIVE POSITIVE (NONE DETECT); UR CANNABINOIDS QUAL NONE DETECTED (NONE DETECT); UR COCAINE QUAL NONE DETECTED (NONE DETECT); UR METHADONE QUAL NONE DETECTED (NONE DETECT); UR METHAMPHETAMINE QUAL NONE DETECTED (NONE DETECT); UR OPIATES QUAL NONE DETECTED (NONE DETECT); UR OXYCODONE QUAL NONE DETECTED (NONE DETECT); UR PROPOXYPHENE QUAL NONE DETECTED (NONE DETECT); UR TCA QUAL NONE DETECTED (NONE DETECT)
[2019-09-12 00:21] LABS: UR PCP QUAL PRESUMPTIVE POSITIVE (NONE DETECT)
[2019-09-12] MEDS ORDERED: NS 1,000 ML IV ONE (00:31)
--- NOTE | 2019-09-12 07:29 | Diag Imaging Result Doc PS360 ---
EXAM: CT HEAD W/O CONTRAST - 09/11/2019 HISTORY: AMS TECHNIQUE: CT head without contrast COMPARISON: 08/16/2019 FINDINGS: There are some atrophic changes and chronic microvascular ischemic changes similar to prior. There is no evidence of recent infarct, although acute infarcts may not be immediately. There are atherosclerotic calcifications noted at the base the brain. There is no evidence of intracranial hemorrhage, mass effect, or midline shift. There is no evidence of skull fracture. There is paranasal sinus disease noted at the visualized left maxillary sinus. The remainder of the visualized paranasal sinuses and mastoid air cells appear clear. IMPRESSION: Chronic changes similar to prior. No visible acute intracranial abnormality. There is left maxillary sinusitis noted. The on-call radiologist provided preliminary results at 11:44 PM on 09/11/2019. This exam was performed using automated exposure control, adjustment of mA or kV according to patient size, and/or use of iterative reconstruction technique. Electronically signed by Guanako Bradshaw 09/12/2019 7:27 AM
--- NOTE | 2019-09-12 07:53 | Diag Imaging Result Doc PS360 ---
EXAM: CHEST-PORTABLE - 09/11/2019 HISTORY: Hypoxia TECHNIQUE: Portable chest one view COMPARISON: 08/16/2019 FINDINGS: Heart size appears normal. There are COPD/emphysematous changes with hyperexpanded lungs. There is scarring, atelectasis, and/or pleural thickening at the right middle lobe/minor fissure similar to prior. There is subsegmental atelectasis at the left base. There is no acute consolidation, vascular congestion, pleural effusion, or pneumothorax identified. IMPRESSION: COPD/emphysematous changes with hyperexpanded lungs. Scarring, atelectasis, and/or pleural thickening at right middle lobe/minor fissure similar to prior. Mild atelectasis at left base. No discrete pneumonia. Electronically signed by Guanako Bradshaw 09/12/2019 7:51 AM
[2019-09-12] MEDS ORDERED: DUONEB (A & A) INH PRN (14:33)
--- NOTE | 2019-09-12 15:11 | EKG Report ---
Test Performed on : 09/12/2019 1:53:53 PM Test Reason : ABNORMAL TELEMENTRY READING Blood Pressure : / mmHG Vent. Rate : 066 BPM Atrial Rate : 066 BPM P-R Int : 168 ms QRS Dur : 142 ms QT Int : 422 ms P-R-T Axes : 049 056 053 degrees QTc Int : 442 ms Normal sinus rhythm. Possible Left atrial enlargement Right bundle branch block Possible Inferior infarct (cited on or before 01-FEB-2015) Abnormal ECG When compared with ECG of 11-SEP-2019 23:51, (Unconfirmed) No significant change was found Confirmed by Tyler Murray MD ([id number]) on 09/13/2019 11:27:44 AM
[2019-09-12] MEDS: DUONEB (A & A) INH SCH ×3 (15:46→23:21)
[2019-09-12] MEDS: LOVENOX SUBQ SCH (15:59)
--- NOTE | 2019-09-12 16:03 | HISTORY AND PHYSICAL ---
PRIMARY CARE PROVIDER: Jose Alfredo Ross MD. CHIEF COMPLAINT: Altered mental status. HISTORY OF PRESENT ILLNESS: This is a 64-year-old female with a prior history of seizure disorder, hypertension, COPD on home O2, with chronic bilateral leg ulcers, who presented to the emergency room via EMS for altered mental status with a possible seizure. Evidently, the patient was seen at [facility] earlier in the day for the same, was discharged home, and shortly after called EMS. According to the emergency room chart, the patient was unkempt. She had bilateral lower extremity bandages on that were soiled. At the time of my exam, there are no family members present. Reportedly, in the emergency room, the patient had a bottle of Xanax 0.25 mg #60 pills filled on 09/07/2019. There were three pills left in the bottle. The patient initially stated she did not know what happened to the pills, although at the time of my exam she stated, "I took the extra Xanax because the doctor wrote it wrong." PAST MEDICAL HISTORY: 1. Seizure disorder. 2. Hypertension. 3. Hyperlipidemia. 4. COPD on home O2. 5. Anxiety. 6. Depression. 7. Chronic bilateral ankle ulcers with Pseudomonas on the past four cultures. PAST SURGICAL HISTORY: ORIF of distal left radius fracture and bone marrow aspiration 2016. SOCIAL HISTORY: She smokes one to two packs of cigarettes a day and has since age 20. She drank alcohol but stopped in 2014. She denies any illicit drug use. She lives alone. FAMILY HISTORY: Positive for CAD, hypertension, and CVA on her mother's side and hypertension in her father. ALLERGIES: Reported amoxicillin, penicillin, and Keflex. HOME MEDICATIONS: A list will be obtained by the nursing staff and once verified will be restarted as appropriate. REVIEW OF SYSTEMS: Is discussed with patient with pertinent positives stated in the HPI. She denied any syncope or dizziness. Denied any chest pain or palpitations. She denied any shortness of breath, cough, fever, or chills. Denied night sweats. Denied nausea, vomiting, diarrhea, or constipation. Denied any black or bloody vomitus or stools. Denied any hematuria, dysuria, frequency, or urgency. PHYSICAL EXAMINATION: GENERAL: This is a 64-year-old female who is lying in the bed on the Medical Surgical floor in no distress. VITAL SIGNS: Blood pressure is 170/74 with a heart rate of 75, respirations are 18, temperature is 98.1 degrees oral, with oxygen air saturations 98% to 100% on 2 L nasal cannula. EYES: Pupils are equal, round, react to light. EOMs are intact. Sclerae are anicteric. HEENT: Head is normocephalic, atraumatic. Mucous membranes are moist. NECK: Supple with trachea midline. CARDIOVASCULAR: Regular rate and rhythm. S1 and S2 are appreciated. Calves are nontender bilateral. PULMONARY: She has wheezes scattered throughout. Chest rises and falls symmetric with respiration. GASTROINTESTINAL: Abdomen is soft, nontender, nondistended with bowel sounds in all four quadrants. SKIN: Warm and dry. She has bilateral lower extremity dressings that are dry and intact. NEUROLOGIC: She is alert and oriented x3. LABS: WBC is 9.4 with hemoglobin 12.6, hematocrit 39.4, platelets of 329,000. Sodium 134, potassium 3.8, BUN 10, creatinine 0.5, with a glucose of 86. Urinalysis is essentially negative. Urine drug screen is presumptive positive for phencyclidine and benzodiazepines. Blood cultures and wound culture are pending. IMAGING: CT of the head revealed chronic changes similar to prior. No visible acute intracranial abnormality. Chest x-ray revealed COPD with hyperexpanded lungs. No discrete pneumonia. ASSESSMENT AND PLAN: 1. Acute hypoxemic respiratory failure. Will continue with supplemental oxygen. Breathing treatments every four hours with every two hours as needed and trend. 2. Seizure disorder. Will continue her home medications once dose is verified. 3. Hypertension. Will monitor vital signs and continue home medication. 4. Chronic obstructive pulmonary disease, on 3L nasal cannula at home. 5. Bilateral lower extremity persistent wounds with Pseudomonas in the last four cultures. Cultures are pending. Antibiotics will be started appropriately according to cultures. 6. Monoclonal gammopathy of undetermined significance. We are aware. She is followed by Dr. Gudino as an outpatient. PLAN: Was discussed with Dr. Dias. Further treatment pending hospital course. Dictated by ALLIE Rich for Vic Dias MD cc: ALLIE Rich MD
[2019-09-12 17:44] LABS: BE 5.2 mmoll (-3.0-3.0); BLOOD TYPE ARTERIAL; HCO3-(ACT) 28.8 mmoll (20.0-26.0); METHB 1.1 % (0.0-1.5); O2(CT) 17.4 mL/dL (15.0-23.0); PCO2(98.6) 43 mmHg (35-45); PO2(98.6) 54 mmHg (60-100); SAMPLE BLOOD; SAO2 92.9 % (95.0-100.0); THB 13.9 g/dL (11.5-17.4); pH(98.6) 7.45 (7.35-7.45)
[2019-09-12 17:46] LABS: MODALITY CANNULA
[2019-09-12 17:47] LABS: ALLEN TEST YES; O2HB 89.2 % (95.0-99.0)
--- NOTE | 2019-09-12 18:02 | Diag Imaging Result Doc PS360 ---
EXAM: CT HEAD W/O CONTRAST HISTORY: AMS TECHNIQUE: CT head without intravenous contrast COMPARISON: 09/11/2019 FINDINGS: No parenchymal hemorrhage. No epidural or subdural hematoma. No subarachnoid hemorrhage. There are chronic microvascular ischemic changes similar to the prior exam. No mass identified on this noncontrasted exam. No hydrocephalus. No sinus opacification. IMPRESSION: No hemorrhage. No change. This exam was performed using automated exposure control, adjustment of mA or kV according to patient size, and/or use of iterative reconstruction technique. Electronically signed by Sergio Lennon 09/12/2019 6:00 PM
--- NOTE | 2019-09-12 20:31 | HISTORY AND PHYSICAL ---
ADDENDUM: Patient presented to the hospital with altered mental status. She was noted to have acute hypoxic respiratory failure. Does have a history of seizures and hypertension as well as COPD. We are going to admit her to the hospital, place her on antibiotics, oxygen. Her drug screen was abnormal, positive for benzodiazepines and phencyclidine screen. She had elevated carboxyhemoglobin. We need to check a urine culture and will follow. cc: Vic Dias MD
[2019-09-12] MEDS: XANAX PO SCH (20:43)
[2019-09-12] MEDS: LIPITOR PO SCH (20:43)
[2019-09-12] MEDS: KEPPRA PO SCH (20:43)
[2019-09-12] MEDS: TYLENOL PO PRN (20:55)
[2019-09-13] MEDS: DUONEB (A & A) INH SCH ×6 (04:36→22:56)
[2019-09-13] MEDS: PRILOSEC PO SCH (06:15)
[2019-09-13 06:49] LABS: BASO# 0.06 X1000 (0.0-0.2); BASO% 0.8 % (0.0-0.8); EOS# 0.34 X1000 (0.0-0.7); EOS% 4.3 % (0.0-10.0); HEMOGLOBIN 12.9 g/dL (12.0-16.0); IMM GRAN# 0.02 X1000 (0.0-0.04); IMM GRAN% 0.3 % (0.0-0.5); LYMPH# 2.17 X1000 (1.2-3.4); LYMPH% 27.4 % (20.5-51.1); MCH 28.8 PG (27-31); MCHC 32.3 g/dL (33-37); MCV 89.3 FL (81-99); MONO# 0.72 X1000 (0.11-0.59); MONO% 9.1 % (1.7-9.3); MPV 10.2 FL (7.4-10.4); NEUT# 4.61 X1000 (1.4-6.5); NEUT% 58.1 % (42.2-75.2); PLT 307 X1000 (130-400); RBC 4.48 XMIL (4.2-5.4); RDW 13.5 % (11.5-14.5); WBC 7.92 X1000 (4.8-10.8)
[2019-09-13 07:28] LABS: AGAP 13; BUN 7 mg/dL (8-22); CALCIUM 9.3 mg/dL (8.8-10.2); CHLORIDE 98 mmol/L (98-107); COSMO 274; CREATININE 0.4 mg/dL (0.5-0.9); ESTIMATED GFR > 60; GLUCOSE 110 mg/dL (70-104); POTASSIUM 3.7 mmol/L (3.5-5.1); SODIUM 138 mmol/L (136-145); TCO2 27 mmol/L (25-35)
[2019-09-13] MEDS: EFFEXOR XR PO SCH (09:28)
[2019-09-13] MEDS: KEPPRA PO SCH ×2 (09:28→20:47)
[2019-09-13] MEDS: TYLENOL PO PRN (13:46)
[2019-09-13] MEDS: LOVENOX SUBQ SCH (15:15)
[2019-09-13] MEDS: XANAX PO SCH (20:47)
[2019-09-13] MEDS: LIPITOR PO SCH (20:47)
[2019-09-14] MEDS: DUONEB (A & A) INH SCH ×6 (03:16→23:36)
[2019-09-14] MEDS: PRILOSEC PO SCH (06:25)
[2019-09-14] MEDS: EFFEXOR XR PO SCH (08:28)
[2019-09-14] MEDS: KEPPRA PO SCH ×2 (08:28→20:35)
[2019-09-14] MEDS ORDERED: GENTAMICIN IV PER PHARMACY MISC SCH (08:30)
[2019-09-14] MEDS: GENTAMICIN IV SCH (09:45)
[2019-09-14] MEDS: NS IV SCH (09:45)
[2019-09-14] MEDS ORDERED: ULTRAM PO PRN (09:50)
[2019-09-14] MEDS: XANAX PO SCH ×2 (10:35→20:35)
[2019-09-14] MEDS: LOVENOX SUBQ SCH (15:25)
[2019-09-14] MEDS: LIPITOR PO SCH (20:35)
[2019-09-14] MEDS: NICODERM PATCH TD PRN (20:41)
--- NOTE | 2019-09-15 00:38 | PROGRESS NOTE ---
DATE: 09/14/2019 SUBJECTIVE: Patient has no complaints other than the fact that she wants to start taking her Xanax at least twice a day and not 3 times a day. PHYSICAL EXAMINATION: Vital Signs: Temperature 98 degrees, pulse 75, respiratory rate 18, BP 151/85. General: Patient is pleasant. She is in no distress. HEENT: Normocephalic. Neck: Supple. Cardiovascular: Regular rate. Chest: Clear. Abdomen: Soft. Extremities: Moves all extremities. Neurologic: Patient currently is awake, alert, oriented. Her confusion from earlier has resolved. Skin: She has bilateral lower extremity wound dressings. ASSESSMENT: 1. Pseudomonas in her wound that is sensitive to cefepime, ceftazidime although patient is allergic to cephalosporins, is intermittently sensitive to Levaquin. Therefore, we will start her on gentamicin and we will discuss with Infectious Disease. 2. Chronic obstructive pulmonary disease. 3. Seizure disorder. 4. Acute metabolic encephalopathy, resolved. cc: Vic Dias MD
[2019-09-15] MEDS: DUONEB (A & A) INH SCH ×6 (03:32→23:11)
[2019-09-15] MEDS: PRILOSEC PO SCH (06:11)
[2019-09-15 06:58] LABS: HEMATOCRIT 37.7 % (37.0-47.0); HEMOGLOBIN 11.9 g/dL (12.0-16.0); MCH 28.5 PG (27-31); MCHC 31.6 g/dL (33-37); MCV 90.4 FL (81-99); MPV 10.2 FL (7.4-10.4); RBC 4.17 XMIL (4.2-5.4); RDW 13.8 % (11.5-14.5); WBC 7.4 X1000 (4.8-10.8)
[2019-09-15 07:27] LABS: AGAP 11; ALBUMIN 3.7 g/dL (3.5-5.0); ALKALINE PHOSPHATASE 61 U/L (32-104); BUN 13 mg/dL (8-22); CALCIUM 8.9 mg/dL (8.8-10.2); CHLORIDE 96 mmol/L (98-107); COSMO 268; CREATININE 0.4 mg/dL (0.5-0.9); ESTIMATED GFR > 60; GLUCOSE 97 mg/dL (70-104); GOT 25 U/L (10-30); GPT 21 U/L (10-36); MAGNESIUM 2.1 mg/dL (1.5-2.7); POTASSIUM 4.2 mmol/L (3.5-5.1); SODIUM 134 mmol/L (136-145); TCO2 28 mmol/L (25-35); TOTAL PROTEIN 6.8 g/dL (6.3-8.3)
[2019-09-15] MEDS: EFFEXOR XR PO SCH (09:12)
[2019-09-15] MEDS: KEPPRA PO SCH ×2 (09:12→20:40)
[2019-09-15] MEDS: GENTAMICIN IV SCH (09:12)
[2019-09-15] MEDS: XANAX PO SCH ×2 (09:12→20:40)
[2019-09-15] MEDS: NS IV SCH (09:12)
[2019-09-15] MEDS: NICODERM PATCH TD PRN (09:58)
[2019-09-15] MEDS: TYLENOL PO PRN (10:37)
[2019-09-15] MEDS: LIPITOR PO SCH (20:39)
[2019-09-15] MEDS: DOXYCYCLINE PO SCH (20:40)
--- NOTE | 2019-09-15 20:57 | PROGRESS NOTE ---
DATE: 09/15/2019 SUBJECTIVE: Patient has no new complaints states that she is still tired. PHYSICAL: Temperature 99.3, pulse 71, respiratory 18, BP 165/85.General: Patient is awake, pleasant, in no current distress. HEENT: Normocephalic. Neck: Supple. Cardiovascular: Regular rate. Chest: Clear. Abdomen: Soft, nondistended. Extremities: Moves all extremities. ASSESSMENT: 1. Bilateral lower extremity wound growing Pseudomonas also growing gram-positive cocci yet to be determined. 2. History of seizures. 3. Hypoxic respiratory failure appears resolved. 4. Chronic obstructive pulmonary disease. PLAN: We will continue physical therapy, continue gentamicin as she is allergic to cephalosporins. Will add doxycycline and will follow. Will talk to Infectious Disease once her culture returns. cc: Vic Dias MD
[2019-09-16] MEDS: DUONEB (A & A) INH SCH ×6 (03:08→23:16)
[2019-09-16] MEDS: PRILOSEC PO SCH (06:12)
[2019-09-16] MEDS: AZACTAM 2 GM in NS 100 ML IV SCH ×2 (09:45→17:50)
[2019-09-16] MEDS: XANAX PO SCH ×2 (09:46→20:26)
[2019-09-16] MEDS: DOXYCYCLINE PO SCH ×2 (09:46→20:26)
[2019-09-16] MEDS: KEPPRA PO SCH ×2 (09:46→20:26)
[2019-09-16] MEDS: EFFEXOR XR PO SCH (09:46)
--- NOTE | 2019-09-16 19:54 | PROGRESS NOTE ---
DATE: 09/16/2019 SUBJECTIVE: The patient has no new complaints. Notes that she is feeling okay. PHYSICAL EXAMINATION: Vital Signs: Reviewed. Temp 97.9 degrees, pulse 79, respiratory rate 18, BP 135/65. General: The patient is pleasant. She is in no current respiratory distress. HEENT: Normocephalic. Neck: Supple. Cardiovascular: Regular rate. Chest: Clear, nonlabored. No wheezing. Abdomen: Soft, nondistended, nontender. Extremities: Moves all extremities. ASSESSMENT: 1. Pseudomonas in her wound. We have switched her to aztreonam. We will ask Tax Revenue Officer to assist in the possibility of having aztreonam at home IV. She needs 10 total days. She has had 2 days thus far. 2. Seizures. 3. Hypertension. 4. Chronic obstructive pulmonary disease, improved. 5. Chronic hypoxic respiratory failure. PLAN: Hopefully the patient can continue to improve. Hopefully we can transition her home over the next day or 2 on IV antibiotics. cc: Vic Dias MD
[2019-09-16] MEDS: LIPITOR PO SCH (20:26)
[2019-09-17] MEDS: AZACTAM 2 GM in NS 100 ML IV SCH ×3 (00:07→18:24)
[2019-09-17] MEDS: DUONEB (A & A) INH SCH ×6 (03:03→22:51)
[2019-09-17] MEDS: PRILOSEC PO SCH (06:09)
[2019-09-17 07:51] LABS: HEMATOCRIT 39.9 % (37.0-47.0); MCH 29.1 PG (27-31); MCHC 32.6 g/dL (33-37); MCV 89.3 FL (81-99); MPV 9.8 FL (7.4-10.4); RBC 4.47 XMIL (4.2-5.4); RDW 13.9 % (11.5-14.5); WBC 7.26 X1000 (4.8-10.8)
[2019-09-17 08:05] LABS: AGAP 12; ALBUMIN 4.1 g/dL (3.5-5.0); ALKALINE PHOSPHATASE 66 U/L (32-104); BUN 17 mg/dL (8-22); CALCIUM 9.4 mg/dL (8.8-10.2); CHLORIDE 92 mmol/L (98-107); COSMO 265; CREATININE 0.4 mg/dL (0.5-0.9); ESTIMATED GFR > 60; GLUCOSE 109 mg/dL (70-104); GOT 33 U/L (10-30); GPT 31 U/L (10-36); POTASSIUM 4.8 mmol/L (3.5-5.1); SODIUM 131 mmol/L (136-145); TCO2 27 mmol/L (25-35); TOTAL PROTEIN 7.3 g/dL (6.3-8.3)
[2019-09-17] MEDS: EFFEXOR XR PO SCH (10:02)
[2019-09-17] MEDS: KEPPRA PO SCH ×2 (10:02→20:04)
[2019-09-17] MEDS: XANAX PO SCH ×2 (10:02→20:05)
[2019-09-17] MEDS: DOXYCYCLINE PO SCH ×2 (10:02→20:04)
[2019-09-17 14:40] LABS: INR 0.85
[2019-09-17 14:41] LABS: PTT 29.6 Seconds (22.3-41.8)
[2019-09-17] MEDS: LIPITOR PO SCH (20:04)
[2019-09-17] MEDS: NICODERM PATCH TD PRN (21:23)
--- NOTE | 2019-09-17 22:53 | PROGRESS NOTE ---
DATE: 09/17/2019 SUBJECTIVE: Patient has no complaints, notes that she is feeling okay; however, she is still tired, fatigued, having difficulty ambulating. OBJECTIVE: Vital signs: Temperature 98 degrees, pulse 80, respiratory rate 18, BP 133/48. General: Patient is pleasant. She is in no respiratory distress. HEENT: Normocephalic. Neck: Supple. Cardiovascular: Regular rate. Chest: Clear. Abdomen: Soft. Extremities: Moves all extremities. ASSESSMENT: 1. Acute hypoxic respiratory failure, resolved. 2. Medical noncompliance. 3. Seizures. 4. Hypertension. 5. Chronic obstructive pulmonary disease. 6. Bilateral lower extremity wounds growing Pseudomonas which has been present on several previous cultures. The patient unfortunately has failed to follow up outpatient or take antibiotics as directed. Currently her Pseudomonas is resistant to Levaquin, and she is allergic to cephalosporins. Therefore, she is on Azactam for the next 7 days. cc: Vic Dias MD
[2019-09-18] MEDS: AZACTAM 2 GM in NS 100 ML IV SCH ×3 (00:09→16:51)
[2019-09-18] MEDS: DUONEB (A & A) INH SCH ×4 (03:41→15:29)
[2019-09-18] MEDS: PRILOSEC PO SCH (06:06)
[2019-09-18] MEDS: KEPPRA PO SCH (09:01)
[2019-09-18] MEDS: EFFEXOR XR PO SCH (09:01)
[2019-09-18] MEDS: DOXYCYCLINE PO SCH (09:01)
[2019-09-18] MEDS: XANAX PO SCH (09:01)
[2019-09-18] MEDS ORDERED: NS 250 ML ONE (09:51)
[2019-09-18 14:19] VITALS: BP 106/75
--- NOTE | 2019-09-18 15:14 | DISCHARGE SUMMARY ---
ADMISSION DATE: 09/12/2019 DISCHARGE DATE: 09/18/2019 ADMITTING DIAGNOSES: 1. Acute hypoxic respiratory failure. 2. Seizure disorder. 3. Hypertension. 4. Chronic obstructive pulmonary disease. 5. Bilateral lower extremity persistent wounds with pseudomonas. 6. Monoclonal gammopathy. DISCHARGE DIAGNOSES: 1. Acute hypoxic respiratory failure, resolved. 2. Medical noncompliance. 3. Seizures. 4. Hypertension. 5. Chronic obstructive pulmonary disease. 6. Bilateral lower extremity wounds growing pseudomonas, resistant to Levaquin. PROCEDURES AND FINDINGS: Chest x-ray done on 09/11/2019 shows COPD changes within the hyperexpanded lungs, scarring, atelectasis, and/or pleural thickening at the right middle lobe, mild atelectasis at the left base. No pneumonia. Head CT done 09/11/2019 shows chronic changes similar to prior. No visible acute intracranial abnormality. Head CT done on 09/12/2019 shows no hemorrhage and no change from prior. HOSPITAL COURSE: Ms. Moffett is a 64-year-old female who presented to the emergency room for altered mental status with possible seizure. The patient had been seen at [facility] ER earlier that day and was discharged home and shortly after, had recalled EMS. The patient is noted to have bilateral lower extremity bandages that were soiled. The patient appeared to be unkept. Reportedly, the patient had a bottle of Xanax 0.25 mg, 60 pills, that were filled on 09/07/2019 and there were only 3 pills left in the bottle. The patient was admitted to the medical floor. She was placed on supplemental O2. Breathing treatments were scheduled every 4 hours and q.2 hours p.r.n. Wound cultures were obtained of the wounds to the lower extremities. Wound cultures were noted to be pseudomonas that had several sensitivities but was resistant to Levaquin. The patient is allergic to penicillins and cephalexin. Dr. Dias did speak with infectious disease. He did add doxycycline. The patient did have altered mental status on arrival which he resulted to her acute respiratory failure and her history of seizures. Her mental status did improve. The patient was placed on Azactam because she was allergic to cephalosporins and the wound is resistant to Levaquin. The patient will need a total of 7 days of the Azactam IV because of the patient's failure to follow up outpatient with antibiotic. The patient will go back to rehab and receive the Azactam. The patient has agreed and family has agreed. The patient is going to discharge today to [facility] to receive her Azactam. Her mental status has improved. Her vital signs are stable. DISCHARGE MEDICATIONS: 1. Atorvastatin calcium 20 mg p.o. at bedtime. 2. Keppra 500 mg p.o. b.i.d. 3. Losartan potassium 100 mg 1 tablet p.o. daily. 4. Venlafaxine HCL ER 150 mg p.o. daily. 5. Alprazolam 0.25 mg p.o. b.i.d. 6. Doxycycline 100 mg p.o. b.i.d. 7. Albuterol and Atrovent nebulizers inhaled q.4-6 hours. 8. Ultram 50 mg p.o. q.6 hours p.r.n. 9. Azactam 2 g in 100 mL IV q.8 hours for a total of 7 days. The patient should finish this dose on 09/23/2019. DISCHARGE DIET: The patient is to resume a regular diet as tolerated. DISCHARGE ACTIVITY: The patient is to resume activity per rehab facility. DISCHARGE DISPOSITION: The patient is to discharge to [facility]. She is to follow up with her primary care physician, Dr. Ross, in 1 to 2 weeks or sooner if needed. For all other questions or concerns, she is to notify her primary care physician, Dr. Ross. Dictated by ALLIE Schmitz for Vic Dias MD cc: MD Jose Alfredo Lujan MD
--- NOTE | 2019-09-18 15:25 | DISCHARGE SUMMARY ---
ADMISSION DATE: 09/12/2019 DISCHARGE DATE: 09/17/2019 DISCHARGE DIAGNOSES: 1. Pseudomonas wound culture bilateral lower extremities. 2. Acute hypoxic respiratory failure resolved. 3. Seizure disorder. 4. Hypertension. 5. Medical noncompliance. 6. Chronic obstructive pulmonary disease with chronic hypoxemia. 7. Monoclonal gammopathy of undetermined significance. She is followed by Dr. Gudino outpatient. 8. Hyperlipidemia. 9. Chronic anxiety, depression. 10. Adult failure to thrive. CONSULTATIONS: None. PROCEDURES: None. BRIEF HOSPITAL COURSE: The patient is a 64-year-old female who presented to the hospital with increased cough, congestion, increased work of breathing. She was requiring more oxygen. She also had worsening of her lower extremity wounds. She was placed on antibiotics initially. Her oxygen thankfully was able to wean down. She was continued on her home medications without any incidence. Her blood pressures continued to improve. She was switched over to Azactam, but unfortunately needs 10 total days of this. DISPOSITION: Patient will be discharged to rehab to hopefully assist in her compliance as well as her physical stamina improvement. Greater than 30 minutes was spent. cc: Vic Dias MD
--- NOTE | 2019-09-18 22:43 | PROGRESS NOTE ---
DATE: 09/18/2019 SUBJECTIVE: Patient with no complaints. PHYSICAL EXAMINATION: Vital Signs: Reviewed. Temperature 98 degrees, pulse 80, respiratory rate 18, blood pressure 138/48. General: Patient is pleasant. She is in no distress, lying in the bed. HEENT: Normocephalic. Neck: Supple. Cardiovascular: Regular rate. Chest: Clear. Abdomen: Soft. Extremities: Moves all extremities although generalized weakness. ASSESSMENT: 1. Pseudomonas wound culture. 2. Acute hypoxic respiratory failure. 3. Seizures. 4. Hypertension. 5. Chronic obstructive pulmonary disease. PLAN: We will continue patient on hospital. Continue aztreonam. Continue counseling. Further orders as needed. cc: Vic Dias MD
== END 2019-09-18 17:59 | DRG 189 ==
LOC: SUPCPDRO → P.ED 22:23 → P.MEDSURG 09-12 01:09
PROVIDERS: ATTEND Family Medicine